=== PATIENT | male | born 1935 | race Hispanic/Latino ===

== ENCOUNTER 2016-11-12 12:33 | Inpatient (IN) | payer MEDICARE, OTHER ==
[2016-11-12 13:15] LABS: BASO % 0.2 % (0.0-2.0); EOS # 0.1 K/uL (0.0-0.7); EOS % 1.4 % (0.0-4.0); HEMATOCRIT 28.2 % (35.0-51.0); LYMPH # 1.3 K/uL (1.0-4.3); LYMPH % 24.6 % (20.0-40.0); MEAN CELL VOLUME 99.3 fl (80.0-94.0); MEAN CORPUSCULAR HEMOGLOBIN 33.3 pg (27.0-31.0); MEAN CORPUSCULAR HGB CONC 33.6 g/dL (33.0-37.0); MEAN PLATELET VOLUME 8.1 fl (7.2-11.7); MONO # 0.6 K/uL (0.0-0.8); MONO % 10.7 % (0.0-10.0); NEUT # 3.5 K/uL (1.8-7.0); NEUT % 63.1 % (50.0-75.0); NRBC % 0.2 % (0.0-0.0); RED CELL DISTRIBUTION WIDTH 14.1 % (11.5-14.5); WHITE BLOOD COUNT 5.5 K/uL (4.8-10.8)
[2016-11-12 13:37] LABS: ALB/GLOB RATIO 1.4 (1.0-2.1); ALKALINE PHOSPHATASE 110 U/L (38-126); ALT/SGPT 34 U/L (21-72); AST/SGOT 27 U/L (17-59); BILIRUBIN,TOTAL 0.3 mg/dl (0.2-1.3); BLOOD UREA NITROGEN 73 mg/dl (9-20); CARBON DIOXIDE 18 mmol/L (22-30); CHLORIDE 100 mmol/L (98-107); GFR AFRICAN-AMERICAN 41; GLUCOSE,RANDOM 110 mg/dL (75-110); POTASSIUM 4.9 MMOL/L (3.6-5.0); SODIUM 132 mmol/l (132-148); TOTAL PROTEIN 6.8 G/DL (6.3-8.2)
--- NOTE | 2016-11-12 14:15 | ED PDOC ---
HPI: SOB/CHF/COPD Time Seen by Provider: 11/12/16 12:51 Chief Complaint (Nursing): Shortness Of Breath Chief Complaint (Provider): Im short of breath History Per: Patient Onset/Duration Of Symptoms: Days (4) Current Symptoms Are (Timing): Still Present Quality: Tightness Exacerbating Factor(s): Exertion, Laying Flat Current Respiratory Medications: See Home Med List Severity: Moderate Location Of Discomfort (Image): 1 - chest Associated Symptoms: Dizziness Additional Complaint(s): 81yo male arrives c/o SOB and orthopnea ongoing 3-4 days, decreased urine output from illeostomy, diarrhea. Feels weak. Admits to mild chest tightness and dizziness. States taking medications daily, although poor historian and unfamiliar with medication regimen. Past Medical History Reviewed: Historical Data, Nursing Documentation, Vital Signs Vital Signs: Last Vital Signs Temp 98.3 F 11/12/16 12:47 Pulse 80 11/12/16 12:47 Resp 24 11/12/16 12:47 BP 138/65 11/12/16 14:16 Pulse Ox 92 L 11/12/16 14:20 - Medical History PMH: CAD, HTN, Chronic Kidney Disease Denies: Arthritis, CHF, COPD, Hypercholesterolemia, Hypothyroidism, Rheumatoid Arthritis - Surgical History Surgical History: CABG Other surgeries: illeostomy - Family History Family History: States: Unknown Family Hx - Living Arrangements Living Arrangements: With Family - Social History Current smoker - smoking cessation education provided: No - Home Medications Home Medications: Ambulatory Orders Medication Instructions Recorded Allopurinol [Zyloprim] 300 mg PO DAILY #0 tab 12/03/14 Aspirin [Aspirin Chewable] 81 mg PO DAILY #0 chew 12/03/14 Calcium Acetate [Phoslo] 667 mg PO TID #0 tab 12/03/14 Ciprofloxacin [Cipro] 500 mg PO Q12 #14 tab 12/03/14 Clopidogrel [Plavix] 75 mg PO DAILY #0 tab 12/03/14 Dicyclomine [Bentyl] 20 mg PO TID #0 tab 12/03/14 Hydrochlorothiazide [HCTZ] 12.5 mg PO DAILY #0 tablet 12/03/14 Lisinopril 10 mg PO DAILY #0 tab 12/03/14 Metoprolol Tartrate [Lopressor] 12.5 mg PO Q12 #0 tab 12/03/14 Nitroglycerin [Nitrostat] 0.4 mg SL DAILY PRN #0 tab 12/03/14 Pantoprazole [Protonix EC Tab] 40 mg PO DAILY #0 ect 12/03/14 Paricalcitol [Zemplar] 1 mcg PO QOTHERDAY #0 sgl 12/03/14 Sodium Bicarbonate 650 mg PO BID #0 tab 12/03/14 Temazepam [Restoril] 30 mg PO DAILY #0 cap 12/03/14 - Allergies Allergies/Adverse Reactions: Allergies Allergy/AdvReac Type Severity Reaction Status Date / Time ciprofloxacin [From Cipro] Allergy ITCHING Verified 11/12/16 12:46 Review of Systems ROS Statement: Except As Marked, All Systems Reviewed And Found Negative Constitutional: Negative for: Fever, Chills Eyes: Negative for: Vision Change ENT: Negative for: Nose Discharge, Throat Pain Cardiovascular: Positive for: Palpitations, Light Headedness. Negative for: Edema Respiratory: Positive for: Shortness of Breath, SOB with Exertion Gastrointestinal: Positive for: Nausea, Abdominal Pain, Diarrhea Genitourinary Male: Negative for: Dysuria, Frequency Musculoskeletal: Negative for: Neck Pain, Shoulder Pain Skin: Negative for: Rash, Lesions, Jaundice Neurological: Negative for: Weakness, Numbness Physical Exam - Reviewed Nursing Documentation Reviewed: Yes Vital Signs Reviewed: Yes - Physical Exam Appears: Positive for: Well, Non-toxic, No Acute Distress Head Exam: Positive for: ATRAUMATIC, NORMAL INSPECTION, NORMOCEPHALIC Skin: Positive for: Normal Color, Warm, DRY Eye Exam: Positive for: EOMI, Normal appearance, PERRL ENT: Positive for: Normal ENT Inspection Neck: Positive for: Normal, Painless ROM Cardiovascular/Chest: Positive for: Regular Rate, Rhythm Respiratory: Negative for: Rales, Wheezing, Respiratory Distress Pulses-Radial (L): 2+ Pulses-Radial (R): 2+ Gastrointestinal/Abdominal: Positive for: Bowel Sounds, Soft, Distended (softly) , Other (RLQ illeostomy approx 100cc dark yellow urine, pink ostomy). Negative for: Tenderness Back: Positive for: Normal Inspection Extremity: Positive for: Normal ROM Neurologic/Psych: Positive for: Alert, Oriented. Negative for: Motor/Sensory Deficits - Laboratory Results Result Diagrams: 11/12/16 13:09 11/12/16 13:09 - ECG O2 Sat by Pulse Oximetry: 92 Medical Decision Making Medical Decision Making: Workup initiated for dyspnea CXR, EKG, labwork. labs reviewed, elev BNP no recent values to compare trop neg Elevating BUN since prior values CXR minimal vascular congestion on my initial read. Will require admission given renal findings in addition to acute CHF. Dr Samano paged 215pm. Dr Bishop returned call, will consult. Admit Dr Joseph hospitalist. Discussed case 230pm/. Care transferred. Disposition - Clinical Impression Clinical Impression: CHF exacerbation, Acute on chronic renal failure - Patient ED Disposition Is Patient to be Admitted: Yes - Disposition Disposition Time: 14:15 Condition: STABLE - Pt Status Changed To: Hospital Disposition Of: Inpatient - Admit Certification Admit to Inpatient:: After my assessment, the patient will require hospitalization for at least two midnights. This is because of the severity of symptoms shown, intensity of services needed, and/or the medical risk in this patient being treated as an outpatient. - POA Present On Arrival: None
--- NOTE | 2016-11-12 14:34 | RAD ---
HISTORY: SOB COMPARISON: Comparison is made to 11/28/2014 TECHNIQUE: Chest PA and lateral FINDINGS: LUNGS: No significant interval change in the lungs noted since the previous exam. PLEURA: No significant pleural effusion identified. No pneumothorax apparent. CARDIOVASCULAR: Normal. OSSEOUS STRUCTURES: No significant abnormalities. VISUALIZED UPPER ABDOMEN: Normal. OTHER FINDINGS: Sternotomy changes are again seen. IMPRESSION: No active disease.
[2016-11-12 15:03] LABS: RBC URINE 3 /hpf (0-3); URINE BACTERIA OCC (<OCC); URINE BILIRUBIN NEGATIVE (NEGATIVE); URINE BLOOD MODERATE (NEGATIVE); URINE COLOR YELLOW (YELLOW); URINE GLUCOSE (UA) NEG (Normal); URINE KETONE NEGATIVE (NEGATIVE); URINE LEUKOCYTE ESTERASE SMALL Leu/uL (Negative); URINE PROTEIN NEGATIVE (NEGATIVE); URINE UROBILINOGEN 0.2-1.0 mg/dL (0.2-1.0); WBC URINE 5 /hpf (0-5)
--- NOTE | 2016-11-12 15:53 | CP.PCM.HP ---
History of Present Illness - History of Present Illness History of Present Illness: 81 y/o male poor historian ,with PMH CAD s/p CABG, HTN, history of urinary bladder CA s/p surgical resection and urostomy bag, CKD ,paroxysmal Afib, anemia of chronic disease, came to ER for evaluation for not feeling well . Complaining of 3 day history of generalized weakness, diarrhea , subjective fever . Patient states that 3 days ago had a family gathering /celebration in a restaurant and since then he and many other family members have not been feeling well, developing multiple episodes of diarrhea. He also complains of chest congestion, SOB , feeling like food is stuck to his mid chest . This morning had 4 episodes of watery diarrhea. Denies any abdominal pain , melena.He has an urostomy bag that he changes himself once a week . PMD : Dr. Sienna Samano Allergies :NKDA PMH :CAD s/p CABG, HTN, history of urinary bladder CA s/p surgical resection and urostomy bag, CKD ,paroxysmal Afib, anemia of chronic disease Medications: ASa, Plavix, renvela,Vitamin D, sulfasalazine, bentyl, trazodone, flexeril, lopressor, Lisinopril / HCTZ, zocor Surgeries: CABG, urinary bladder surgery with urostomy bag Family history :None Social History : Lives in [place] with , , has 3 children, ex smoker, denies ETOH or drug abuse, walks with cane ROS; generalized weakness, feverish , diarrhea , SOB all the other system review negative except above Code status : Full Present on Admission - Present on Admission Any Indicators Present on Admission: No Review of Systems - Review of Systems All systems: reviewed and no additional remarkable complaints except - Constitutional Constitutional: Weakness - Cardiovascular Cardiovascular: Dyspnea Past Patient History - Infectious Disease Hx of Infectious Diseases: None - Tetanus Immunizations Tetanus Immunization: Unknown - Past Medical History & Family History Past Medical History?: Yes Past Family History: Reviewed and not pertinent - Past Social History Smoking Status: Former Smoker Chewing Tobacco Use: No Cigar Use: No Alcohol: None Drugs: Denies Home Situation {Lives}: With Family Domestic Violence: Negative - CARDIAC Hx Atrial Fibrillation: Yes (paroxysmal) Hx Congestive Heart Failure: No Hx Heart Attack: Yes Hx Hypercholesterolemia: No Hx Hypertension: Yes - PULMONARY Hx Chronic Obstructive Pulmonary Disease (COPD): No - NEUROLOGICAL HX Cerebrovascular Accident: No - RENAL Hx Chronic Kidney Disease: Yes - ENDOCRINE/METABOLIC Hx Hypothyroidism: No - HEMATOLOGICAL/ONCOLOGICAL Hx Anemia: Yes - MUSCULOSKELETAL/RHEUMATOLOGICAL Hx Arthritis: No Hx Rheumatoid Arthritis: No - GENITOURINARY/GYNECOLOGICAL Hx Genitourinary Disorders: Yes Hx Bladder Cancer: Yes (s/p bladder resction and urostomy bag) - PSYCHIATRIC Hx Depression: Yes Hx Substance Use: No - SURGICAL HISTORY Hx Surgeries: Yes Hx Coronary Artery Bypass Graft: Yes Other/Comment: urinary bladder Ca resection - ANESTHESIA Hx Anesthesia: Yes Hx Anesthesia Reactions: No Meds Allergies/Adverse Reactions: Allergies Allergy/AdvReac Type Severity Reaction Status Date / Time ciprofloxacin [From Cipro] Allergy ITCHING Verified 11/12/16 12:46 Physical Exam - Constitutional Appears: No Acute Distress, Chronically Ill, Other (weak and pale) - Head Exam Head Exam: ATRAUMATIC, NORMAL INSPECTION, NORMOCEPHALIC - Eye Exam Eye Exam: EOMI, Normal appearance, PERRL Pupil Exam: NORMAL ACCOMODATION - ENT Exam ENT Exam: Mucous Membranes Dry, Normal Exam - Neck Exam Neck exam: Positive for: Full Rom, Normal Inspection - Respiratory Exam Respiratory Exam: Prolonged Expiratory Phase, Rales (bibasilar ). absent: Rhonchi, Wheezes - Cardiovascular Exam Cardiovascular Exam: REGULAR RHYTHM, +S1, +S2. absent: JVD - GI/Abdominal Exam GI & Abdominal Exam: Normal Bowel Sounds, Soft. absent: Distended, Guarding, Rebound, Tenderness Additional comments: urostomy bag with good , clear urine output - Rectal Exam Rectal Exam: Deferred - Extremities Exam Extremities exam: Positive for: normal inspection, pedal pulses present. Negative for: normal capillary refill - Back Exam Back exam: NORMAL INSPECTION - Neurological Exam Neurological exam: Alert, CN II-XII Intact, Oriented x3 - Psychiatric Exam Psychiatric exam: Flat Affect - Skin Skin Exam: Dry, Intact, Pallor, Warm Results - Vital Signs Recent Vital Signs: Last Vital Signs Temp 97.9 F 11/12/16 15:33 Pulse 84 11/12/16 15:33 Resp 18 11/12/16 15:33 BP 136/67 11/12/16 15:33 Pulse Ox 99 11/12/16 15:33 - Labs Result Diagrams: 11/12/16 13:11/12/16 13:09 - EKG Data EKG shows normal: Sinus rhythm Rate: Normal - EKG Data When Compared to Previous EKG: No Significant Change EKG comments: Fist degree AV block , partial RBBB - Imaging and Cardiology Chest x-ray Additional comment: No active disease Assessment & Plan - Assessment and Plan (Free Text) Assessment: 81 y/o male poor historian ,with PMH CAD s/p CABG, HTN, history of urinary bladder CA s/p surgical resection and urostomy bag, CKD ,paroxysmal Afib, anemia of chronic disease, came to ER for evaluation for not feeling well . Complaining of 3 day history of generalized weakness, diarrhea , subjective fever . Patient states that 3 days ago had a family gathering /celebration in a restaurant and since then he and many other family members have not been feeling well, developing multiple episodes of diarrhea. He also complains of chest congestion, SOB , feeling like food is stuck to his mid chest, progressive . This morning had 4 episodes of watery diarrhea. Denies any abdominal pain , melena.He has an urostomy bag that he changes himself once a week . In ER found to have BUN/Cr 73/1.9 CXR showed no active disease but physical exam was significant forrales , ProBNP 0 Trop - Will admit patient to telemetry for CHF exacerbation with gastroenteritis , dehydration , acute on chronic renal failure 1. Acute CHF exacerbation, systolic dysfunction Will admit patient to telemetry ProBNp elevated 1889 Latest Echo showed EF 35 % lasix 60 Mg IV x1 dose given in ER cardiology eval Resume ASA, Statin, lopressor , Lisinopril, plavix Repeat BMp in AM Cycle Troponins x 3 q8 hours to ru;le out ischemic event tele monitoring to rule out and arrythmias 2.Suspected Gastroenteritis Given history of multiple family members experiencing multiple episode of diarrhea after sharing the same meal , gastroenteritis is very likely Start cardiac diet Protonix for GI prophylaxis , reglan PRN for nausea If diarrhea continues mild hydration Continue oral hydration for now due to CHF exacerbation Hold HCTZ 3. Acute on chronic renal failure stage III BUN / Cr 73/1.9 ( baseline GFR 30). Most likely worsening of azotemia as a result of dehydration and diarrhea Resume renvela Close monitoring with oral hydration hold HCTZ Continue Lisinopril since patient has been taking it for a long time 4.Hypertension controlled Continue lopressor and lisinopril 5. Anemia of Chronic disease Hgb 9.5 Continue ferrous sulfate supplements send anemia work up 6.CAD s/p CABG telemetry monitoring Cycle Trop x 3 Q8 hours Continue ASA, plavix, Statin, lopressor , ACEI 7.History Bladder Ca s/p urostomy bag Check UA 8. DVT prophylaxis lovenox
--- NOTE | 2016-11-12 17:57 | CP.PCM.CON ---
History of Present Illness - History of Present Illness History of Present Illness: 81 y/o male poor historian ,with PMH CAD s/p CABG, HTN, history of urinary bladder CA s/p surgical resection and urostomy bag, CKD , paroxysmal Afib, anemia of chronic disease, came to ER for evaluation for not feeling well Complaining of 3 day history of generalized weakness, diarrhea , subjective fever . Pt calims that both his and daughter were sick with N/V/Diarrhea Patient states that 3 days ago had a family gathering /celebration in a restaurant and since then he and many other family members have not been feeling well, developing multiple episodes of diarrhea. He also complains of chest congestion, SOB , This morning had 4 episodes of watery diarrhea. Denies any abdominal pain , melena. He has an urostomy bag that he changes himself once a week . Allergies :NKDA PMH :CAD s/p CABG, HTN, urinary bladder CA s/p surgical resection and urostomy bag, CKD , paroxysmal Afib, anemia of chronic disease Medications: ASa, Plavix, renvela, Vitamin D, sulfasalazine, bentyl, trazodone, flexeril, lopressor, Lisinopril / HCTZ, zocor Surgeries: CABG, urinary bladder surgery with urostomy bag ROS; generalized weakness, feverish , diarrhea , SOB all the other system review negative except above BNP: 1890 11/26/14 Echo:EF: 35 - 40% Past Patient History - Infectious Disease Hx of Infectious Diseases: None - Tetanus Immunizations Tetanus Immunization: Unknown - Past Medical History & Family History Past Medical History?: Yes Past Family History: Reviewed and not pertinent - Past Social History Smoking Status: Former Smoker Chewing Tobacco Use: No Cigar Use: No Alcohol: None Drugs: Denies Home Situation {Lives}: With Family Domestic Violence: Negative - CARDIAC Hx Atrial Fibrillation: Yes (paroxysmal) Hx Congestive Heart Failure: No Hx Heart Attack: Yes Hx Hypercholesterolemia: No Hx Hypertension: Yes - PULMONARY Hx Chronic Obstructive Pulmonary Disease (COPD): No - NEUROLOGICAL HX Cerebrovascular Accident: No - RENAL Hx Chronic Kidney Disease: Yes - ENDOCRINE/METABOLIC Hx Hypothyroidism: No - HEMATOLOGICAL/ONCOLOGICAL Hx Anemia: Yes - MUSCULOSKELETAL/RHEUMATOLOGICAL Hx Arthritis: No Hx Rheumatoid Arthritis: No - GENITOURINARY/GYNECOLOGICAL Hx Genitourinary Disorders: Yes Hx Bladder Cancer: Yes (s/p bladder resction and urostomy bag) - PSYCHIATRIC Hx Depression: Yes Hx Substance Use: No - SURGICAL HISTORY Hx Surgeries: Yes Hx Coronary Artery Bypass Graft: Yes Other/Comment: urinary bladder Ca resection - ANESTHESIA Hx Anesthesia: Yes Hx Anesthesia Reactions: No Meds Allergies/Adverse Reactions: Allergies Allergy/AdvReac Type Severity Reaction Status Date / Time ciprofloxacin [From Cipro] Allergy ITCHING Verified 11/12/16 12:46 - Medications Medications: Current Medications Acetaminophen (Tylenol 325mg Tab) 650 mg PO Q6 PRN PRN Reason: Pain, Mild (1-3) Acetaminophen (Tylenol 325mg Tab) 650 mg PO Q6 PRN PRN Reason: Fever >100.4 F Aspirin (Ecotrin) 81 mg PO DAILY [facility] Atorvastatin Calcium (Lipitor) 10 mg PO DAILY [facility] Cholecalciferol (Vitamin D) 5,000 iu PO Q48H [facility] Clopidogrel Bisulfate (Plavix) 75 mg PO DAILY [facility] Dicyclomine HCl (Bentyl) 20 mg PO TID PRN PRN Reason: abdominal pain/cramping Enoxaparin Sodium (Lovenox) 30 mg SC DAILY [facility] PRN Reason: Protocol Folic Acid (Folic Acid) 1 mg PO DAILY [facility] Lisinopril (Zestril) 10 mg PO DAILY [facility] Metoprolol Tartrate (Lopressor) 25 mg PO BID [facility] Ondansetron HCl (Zofran Inj) 4 mg IVP Q6 PRN PRN Reason: Nausea/Vomiting Pantoprazole Sodium (Protonix Ec Tab) 40 mg PO DAILY [facility] Sevelamer Carbonate (Renvela) 0.8 gm PO TID [facility] Sulfasalazine (Azulfidine) 1,000 mg PO Q6 [facility] Temazepam (Restoril) 30 mg PO HS [facility] Trazodone HCl (Desyrel) 50 mg PO HS [facility] Physical Exam - Respiratory Exam Respiratory Exam: NORMAL BREATHING PATTERN - Cardiovascular Exam Cardiovascular Exam: REGULAR RHYTHM Results - Vital Signs Recent Vital Signs: Last Vital Signs Temp 97.9 F 11/12/16 16:41 Pulse 83 11/12/16 16:41 Resp 18 11/12/16 16:41 BP 136/84 11/12/16 16:41 Pulse Ox 97 11/12/16 16:41 - Labs Result Diagrams: 11/13/16 08:30 11/13/16 08:30 Labs: Laboratory Results - last 24 hr 05/19/17 16:40 PT 11.0 INR 1.06 APTT 30.0 Assessment & Plan (1) Acute on chronic systolic CHF (congestive heart failure) Assessment and Plan: Agree with present Tx Status: Acute
[2016-11-12 20:01] LABS: THYROID STIMULATING HORMONE 4.07 mIU/ML (0.46-4.68)
[2016-11-12] MEDS: Sevelamer Carb 0.8 gm/Packet PO SCH (21:41)
[2016-11-12] MEDS: Pantoprazole 40 mg EC Tab PO SCH (21:57)
--- NOTE | 2016-11-12 21:58 | CARD ---
APPROVED REPORT EKG Measurement Heart [id number] VT [id number] <Conclusion> Sinus rhythm with 1st degree AV block Incomplete right bundle branch block Inferior infarct, age undetermined Cannot rule out Anterior infarct, age undetermined Abnormal ECG
[2016-11-12] MEDS ORDERED: Albuterol-Ipratrop 3 mg / 0.5 (3 ml) UD INH STA (22:31)
[2016-11-13 08:51] LABS: HEMATOCRIT 28.7 % (35.0-51.0); MEAN CELL VOLUME 99.4 fl (80.0-94.0); MEAN CORPUSCULAR HEMOGLOBIN 32.8 pg (27.0-31.0); RED CELL DISTRIBUTION WIDTH 13.9 % (11.5-14.5); WHITE BLOOD COUNT 5.2 K/uL (4.8-10.8)
[2016-11-13 09:05] LABS: CALCIUM 9.2 mg/dL (8.4-10.2); POTASSIUM 4.6 MMOL/L (3.6-5.0)
[2016-11-13] MEDS: Pantoprazole 40 mg EC Tab PO SCH (09:30)
[2016-11-13] MEDS: Sevelamer Carb 0.8 gm/Packet PO SCH ×3 (09:31→17:01)
[2016-11-13] MEDS: Enoxaparin 30 mg Syringe SC SCH (09:32)
--- NOTE | 2016-11-13 09:47 | CP.PCM.PN ---
Subjective - Date & Time of Evaluation Date of Evaluation: 11/13/16 Time of Evaluation: 09:47 - Subjective Subjective: seen and examined bedside. breathing improved from yesterday, however continues to have mild orthopnea. diarrhea, improving but continues to have loose BM and some abdominal discomfort. appears to have hx of ulcerative colitis ? Spoke with patient's pharmacist to clarify medications: patient states he is on Lialda, however, according to pharmacy, patient did not pick it up bc it was too expensive. Patient was switched to alternative which he is currently receiving. vitals are stable no acute distress. Objective - Vital Signs/Intake and Output Vital Signs (last 24 hours): Temp Pulse Resp BP Pulse Ox 98.3 F 76 18 116/58 L 96 11/13/16 08:01 11/13/16 09:32 11/13/16 08:01 11/13/16 09:32 11/13/16 08:01 Intake and Output: 11/13/16 11/13/16 06:59 18:59 Intake Total 1280 Output Total 1400 Balance -120 - Medications Medications: Current Medications Acetaminophen (Tylenol 325mg Tab) 650 mg PO Q6 PRN PRN Reason: Pain, Mild (1-3) Acetaminophen (Tylenol 325mg Tab) 650 mg PO Q6 PRN PRN Reason: Fever >100.4 F Aspirin (Ecotrin) 81 mg PO DAILY [facility] Last Admin: 11/13/16 09:31 Dose: 81 mg Atorvastatin Calcium (Lipitor) 10 mg PO DAILY [facility] Last Admin: 11/13/16 09:31 Dose: 10 mg Cholecalciferol (Vitamin D) 5,000 iu PO Q48H [facility] Last Admin: 11/12/16 21:41 Dose: 5,000 iu Clopidogrel Bisulfate (Plavix) 75 mg PO DAILY [facility] Last Admin: 11/13/16 09:30 Dose: 75 mg Dicyclomine HCl (Bentyl) 20 mg PO TID PRN PRN Reason: abdominal pain/cramping Enoxaparin Sodium (Lovenox) 30 mg SC DAILY [facility] PRN Reason: Protocol Last Admin: 11/13/16 09:32 Dose: 30 mg Folic Acid (Folic Acid) 1 mg PO DAILY [facility] Last Admin: 11/13/16 09:30 Dose: 1 mg Lisinopril (Zestril) 10 mg PO DAILY [facility] Last Admin: 11/13/16 09:31 Dose: 10 mg Metoprolol Tartrate (Lopressor) 25 mg PO BID [facility] Last Admin: 11/13/16 09:32 Dose: 25 mg Ondansetron HCl (Zofran Inj) 4 mg IVP Q6 PRN PRN Reason: Nausea/Vomiting Pantoprazole Sodium (Protonix Ec Tab) 40 mg PO DAILY [facility] Last Admin: 11/13/16 09:30 Dose: 40 mg Sevelamer Carbonate (Renvela) 0.8 gm PO TID [facility] Last Admin: 11/13/16 09:31 Dose: 0.8 gm Sulfasalazine (Azulfidine) 1,000 mg PO Q6 [facility] Last Admin: 11/13/16 09:30 Dose: 1,000 mg Temazepam (Restoril) 30 mg PO HS [facility] Last Admin: 11/12/16 22:13 Dose: 30 mg Trazodone HCl (Desyrel) 50 mg PO HS [facility] Last Admin: 11/12/16 23:21 Dose: 50 mg - Labs Labs: 11/13/16 08:30 11/13/16 08:30 PT 11.0 SECONDS (9.6-11.2) 11/12/16 16:40 INR 1.06 (0.92-1.08) 11/12/16 16:40 APTT 30.0 SECONDS (23.3-32.5) 11/12/16 16:40 - Constitutional Appears: Non-toxic, No Acute Distress - Head Exam Head Exam: ATRAUMATIC, NORMOCEPHALIC - Eye Exam Eye Exam: EOMI, Normal appearance, PERRL - ENT Exam ENT Exam: Mucous Membranes Dry, Mucous Membranes Moist, Normal Oropharynx - Respiratory Exam Respiratory Exam: Rales (bibasilar), NORMAL BREATHING PATTERN. absent: Rhonchi , Wheezes - Cardiovascular Exam Cardiovascular Exam: RRR, +S1, +S2 - GI/Abdominal Exam GI & Abdominal Exam: Soft, Normal Bowel Sounds. absent: Tenderness, Organomegaly - Extremities Exam Extremities Exam: Normal Capillary Refill. absent: Calf Tenderness - Back Exam Back Exam: absent: CVA tenderness (L), CVA tenderness (R) - Neurological Exam Neurological Exam: Alert, Awake - Psychiatric Exam Psychiatric exam: Flat Affect, Normal Mood - Skin Skin Exam: Dry, Normal Color, Warm Assessment and Plan - Assessment and Plan (Free Text) Plan: 81 y/o male poor historian ,with PMH CAD s/p CABG, HTN, history of urinary bladder CA s/p surgical resection and urostomy bag, CKD ,paroxysmal Afib, anemia of chronic disease, came to ER for evaluation for not feeling well . Complaining of 3 day history of generalized weakness, diarrhea , subjective fever . Patient states that 3 days ago had a family gathering /celebration in a restaurant and since then he and many other family members have not been feeling well, developing multiple episodes of diarrhea. He also complains of chest congestion, SOB , feeling like food is stuck to his mid chest, progressive . This morning had 4 episodes of watery diarrhea. Denies any abdominal pain , melena.He has an urostomy bag that he changes himself once a week . In ER found to have BUN/Cr 73/1.9 CXR showed no active disease but physical exam was significant forrales , ProBNP 1889 Trop - Will admit patient to telemetry for CHF exacerbation with gastroenteritis , dehydration , acute on chronic renal failure 1. Acute CHF exacerbation, systolic dysfunction Will admit patient to telemetry ProBNp elevated 1889 Latest Echo showed EF 35 % lasix 60 Mg IV x1 dose given in ER, consider additional dose today if patient dyspnea worsens, while monitoring renal function cardiology eval Resume ASA, Statin, lopressor , Lisinopril, plavix Repeat BMp in AM Cycle Troponins x 3 q8 hours to rule out ischemic event , first two negative tele monitoring to rule out and arrythmias 2.Suspected Gastroenteritis Given history of multiple family members experiencing multiple episode of diarrhea after sharing the same meal , gastroenteritis is very likely Start cardiac diet Protonix for GI prophylaxis , reglan PRN for nausea If diarrhea continues mild hydration Continue oral hydration for now due to CHF exacerbation Hold HCTZ 3. Acute on chronic renal failure stage III BUN / Cr 73/1.9 ( baseline GFR 30). today Cr 2.2 -- Most likely worsening of azotemia as a result of dehydration and diarrhea Resume renvela Close monitoring with oral hydration hold HCTZ Continue Lisinopril since patient has been taking it for a long time 4.Hypertension controlled Continue lopressor and lisinopril 5. Anemia of Chronic disease Hgb 9.5 Continue ferrous sulfate supplements send anemia work up 6.CAD s/p CABG telemetry monitoring Cycle Trop x 3 Q8 hours Continue ASA, plavix, Statin, lopressor , ACEI 7.History Bladder Ca s/p urostomy bag Check UA 8. DVT prophylaxis lovenox
[2016-11-13 12:50] LABS: VITAMIN D 25 OH TOTAL 97.5 NG/ML (30.0-100.0)
[2016-11-13 13:35] LABS: FOLATE > 20.0 ng/mL
--- NOTE | 2016-11-13 23:27 | CP.PCM.CON ---
History of Present Illness - History of Present Illness History of Present Illness: REASONS FOR CONSULT : A ON CKD ANEMIA OF CKD BLADDER CA S/P RESECTION AND ELEOSTOMY BAG .. OLD RECORDS AND CURRENT EMR ALL REVIEWD .. PT WAS SEEN AND EXAMINED 81 y/o male poor historian ,with PMH CAD s/p CABG, HTN, history of urinary bladder CA s/p surgical resection and urostomy bag, CKD ,paroxysmal Afib, anemia of chronic disease, came to ER for evaluation for not feeling well . Complaining of 3 day history of generalized weakness, diarrhea , subjective fever . Patient states that 3 days ago had a family gathering /celebration in a restaurant and since then he and many other family members have not been feeling well, developing multiple episodes of diarrhea. He also complains of chest congestion, SOB , feeling like food is stuck to his mid chest . This morning had 4 episodes of watery diarrhea. Denies any abdominal pain , melena.He has an urostomy bag that he changes himself once a week . PMD : Dr. Sienna Samano Allergies :NKDA PMH :CAD s/p CABG, HTN, history of urinary bladder CA s/p surgical resection and urostomy bag, CKD ,paroxysmal Afib, anemia of chronic disease Medications: ASa, Plavix, renvela,Vitamin D, sulfasalazine, bentyl, trazodone, flexeril, lopressor, Lisinopril / HCTZ, zocor Surgeries: CABG, urinary bladder surgery with urostomy bag Family history :None Social History : [place] in [place] with , , has 3 children, ex smoker, denies ETOH or drug abuse, walks with cane ROS; generalized weakness, feverish , diarrhea , SOB all the other system review negative except above Code status : Full Past Patient History - Infectious Disease Hx of Infectious Diseases: None - Tetanus Immunizations Tetanus Immunization: Unknown - Past Medical History & Family History Past Medical History?: Yes Past Family History: Reviewed and not pertinent - Past Social History Smoking Status: Former Smoker Chewing Tobacco Use: No Cigar Use: No Alcohol: None Drugs: Denies Home Situation {Lives}: With Family Domestic Violence: Negative - CARDIAC Hx Atrial Fibrillation: Yes (paroxysmal) Hx Congestive Heart Failure: No Hx Heart Attack: Yes Hx Hypercholesterolemia: No Hx Hypertension: Yes - PULMONARY Hx Chronic Obstructive Pulmonary Disease (COPD): No - NEUROLOGICAL HX Cerebrovascular Accident: No - RENAL Hx Chronic Kidney Disease: Yes - ENDOCRINE/METABOLIC Hx Hypothyroidism: No - HEMATOLOGICAL/ONCOLOGICAL Hx Anemia: Yes - MUSCULOSKELETAL/RHEUMATOLOGICAL Hx Arthritis: No Hx Rheumatoid Arthritis: No - GENITOURINARY/GYNECOLOGICAL Hx Genitourinary Disorders: Yes Hx Bladder Cancer: Yes (s/p bladder resction and urostomy bag) - PSYCHIATRIC Hx Depression: Yes Hx Substance Use: No - SURGICAL HISTORY Hx Surgeries: Yes Hx Coronary Artery Bypass Graft: Yes Other/Comment: urinary bladder Ca resection - ANESTHESIA Hx Anesthesia: Yes Hx Anesthesia Reactions: No Meds Allergies/Adverse Reactions: Allergies Allergy/AdvReac Type Severity Reaction Status Date / Time ciprofloxacin [From Cipro] Allergy ITCHING Verified 11/12/16 12:46 - Medications Medications: Current Medications Acetaminophen (Tylenol 325mg Tab) 650 mg PO Q6 PRN PRN Reason: Pain, Mild (1-3) Acetaminophen (Tylenol 325mg Tab) 650 mg PO Q6 PRN PRN Reason: Fever >100.4 F Aspirin (Ecotrin) 81 mg PO DAILY [facility] Last Admin: 11/13/16 09:31 Dose: 81 mg Atorvastatin Calcium (Lipitor) 10 mg PO DAILY [facility] Last Admin: 11/13/16 09:31 Dose: 10 mg Cholecalciferol (Vitamin D) 5,000 iu PO Q48H [facility] Last Admin: 11/12/16 21:41 Dose: 5,000 iu Clopidogrel Bisulfate (Plavix) 75 mg PO DAILY [facility] Last Admin: 11/13/16 09:30 Dose: 75 mg Dicyclomine HCl (Bentyl) 20 mg PO TID PRN PRN Reason: abdominal pain/cramping Enoxaparin Sodium (Lovenox) 30 mg SC DAILY [facility] PRN Reason: Protocol Last Admin: 11/13/16 09:32 Dose: 30 mg Folic Acid (Folic Acid) 1 mg PO DAILY [facility] Last Admin: 11/13/16 09:30 Dose: 1 mg Lisinopril (Zestril) 10 mg PO DAILY [facility] Last Admin: 11/13/16 09:31 Dose: 10 mg Metoprolol Tartrate (Lopressor) 25 mg PO BID [facility] Last Admin: 11/13/16 17:00 Dose: Not Given Ondansetron HCl (Zofran Inj) 4 mg IVP Q6 PRN PRN Reason: Nausea/Vomiting Pantoprazole Sodium (Protonix Ec Tab) 40 mg PO DAILY [facility] Last Admin: 11/13/16 09:30 Dose: 40 mg Sevelamer Carbonate (Renvela) 0.8 gm PO TID [facility] Last Admin: 11/13/16 17:01 Dose: 0.8 gm Sulfasalazine (Azulfidine) 1,000 mg PO Q6 [facility] Last Admin: 11/13/16 21:41 Dose: 1,000 mg Temazepam (Restoril) 30 mg PO HS [facility] Last Admin: 11/13/16 21:40 Dose: 30 mg Trazodone HCl (Desyrel) 50 mg PO HS [facility] Last Admin: 11/13/16 21:40 Dose: 50 mg Results - Vital Signs Recent Vital Signs: Last Vital Signs Temp 97.7 F 11/13/16 20:52 Pulse 77 11/13/16 21:00 Resp 18 11/13/16 20:52 BP 100/55 L 11/13/16 20:52 Pulse Ox 97 11/13/16 20:52 - Labs Result Diagrams: 11/13/16 08:30 11/13/16 08:30 Labs: Laboratory Results - last 24 hr 11/12/16 11/12/16 11/12/16 18:52 18:52 18:52 WBC RBC Hgb Hct MCV MCH MCHC RDW Plt Count Sodium Potassium Chloride Carbon Dioxide Anion Gap BUN Creatinine Est GFR ( Amer) Est GFR (Non-Af Amer) Random Glucose Calcium TIBC 261 % Saturation 22 Transferrin 184.88 L Troponin I 25-OH Vitamin D Total 97.5 Folate > 20.0 11/13/16 11/13/16 11/13/16 08:30 08:30 08:30 WBC 5.2 RBC 2.89 L Hgb 9.5 L Hct 28.7 L MCV 99.4 H MCH 32.8 H MCHC 33.0 RDW 13.9 Plt Count 132 Sodium 132 Potassium 4.6 Chloride 98 Carbon Dioxide 23 Anion Gap 17 BUN 80 H Creatinine 2.2 H Est GFR ( Amer) 35 Est GFR (Non-Af Amer) 29 Random Glucose 114 H Calcium 9.2 TIBC % Saturation Transferrin Troponin I < 0.0120 25-OH Vitamin D Total Folate Assessment & Plan - Assessment and Plan (Free Text) Assessment: A ON CKD .. WILL WATCH CLOSELY ANRMIA OF CKD .. HGB LOW .. WILL CHECK ANEMIA W/U C/O CURRENT CARE - Date & Time Date: 11/13/16 Time: 19:00
[2016-11-14 08:03] VITALS: RESP 18
[2016-11-14 08:58] LABS: MEAN CELL VOLUME 98.8 fl (80.0-94.0); MEAN CORPUSCULAR HEMOGLOBIN 33.6 pg (27.0-31.0); RED CELL DISTRIBUTION WIDTH 13.6 % (11.5-14.5); WHITE BLOOD COUNT 5.6 K/uL (4.8-10.8)
[2016-11-14 09:07] LABS: CALCIUM 9.4 mg/dL (8.4-10.2); POTASSIUM 4.8 MMOL/L (3.6-5.0)
[2016-11-14] MEDS: Enoxaparin 30 mg Syringe SC SCH (09:37)
[2016-11-14] MEDS: Sevelamer Carb 0.8 gm/Packet PO SCH (09:38)
[2016-11-14] MEDS: Pantoprazole 40 mg EC Tab PO SCH (09:38)
--- NOTE | 2016-11-14 10:38 | CP.PCM.PN ---
Subjective - Date & Time of Evaluation Date of Evaluation: 11/14/16 Time of Evaluation: 10:00 - Subjective Subjective: Breathing easier today BNP: 425 resolving CHF Objective - Vital Signs/Intake and Output Vital Signs (last 24 hours): Temp Pulse Resp BP Pulse Ox 97.6 F 83 18 121/61 96 11/14/16 08:02 11/14/16 08:02 11/14/16 08:02 11/14/16 08:02 11/14/16 08:02 Intake and Output: 11/14/16 11/14/16 06:59 18:59 Output Total 800 Balance -800 - Medications Medications: Current Medications Acetaminophen (Tylenol 325mg Tab) 650 mg PO Q6 PRN PRN Reason: Pain, Mild (1-3) Acetaminophen (Tylenol 325mg Tab) 650 mg PO Q6 PRN PRN Reason: Fever >100.4 F Aspirin (Ecotrin) 81 mg PO DAILY [facility] Last Admin: 11/14/16 09:36 Dose: 81 mg Atorvastatin Calcium (Lipitor) 10 mg PO DAILY [facility] Last Admin: 11/14/16 09:36 Dose: 10 mg Cholecalciferol (Vitamin D) 5,000 iu PO Q48H [facility] Last Admin: 11/12/16 21:41 Dose: 5,000 iu Clopidogrel Bisulfate (Plavix) 75 mg PO DAILY [facility] Last Admin: 11/14/16 09:38 Dose: 75 mg Dicyclomine HCl (Bentyl) 20 mg PO TID PRN PRN Reason: abdominal pain/cramping Enoxaparin Sodium (Lovenox) 30 mg SC DAILY [facility] PRN Reason: Protocol Last Admin: 11/14/16 09:37 Dose: 30 mg Folic Acid (Folic Acid) 1 mg PO DAILY [facility] Last Admin: 11/14/16 09:35 Dose: 1 mg Lisinopril (Zestril) 10 mg PO DAILY [facility] Last Admin: 11/14/16 09:38 Dose: 10 mg Metoprolol Tartrate (Lopressor) 25 mg PO BID [facility] Last Admin: 11/14/16 09:37 Dose: 25 mg Ondansetron HCl (Zofran Inj) 4 mg IVP Q6 PRN PRN Reason: Nausea/Vomiting Pantoprazole Sodium (Protonix Ec Tab) 40 mg PO DAILY [facility] Last Admin: 11/14/16 09:38 Dose: 40 mg Sevelamer Carbonate (Renvela) 0.8 gm PO TID [facility] Last Admin: 11/14/16 09:38 Dose: 0.8 gm Sulfasalazine (Azulfidine) 1,000 mg PO Q6 [facility] Last Admin: 11/14/16 09:35 Dose: 1,000 mg Temazepam (Restoril) 30 mg PO HS [facility] Last Admin: 11/13/16 21:40 Dose: 30 mg Trazodone HCl (Desyrel) 50 mg PO HS [facility] Last Admin: 11/13/16 21:40 Dose: 50 mg - Labs Labs: 11/14/16 08:40 11/14/16 08:40 PT 11.0 SECONDS (9.6-11.2) 11/12/16 16:40 INR 1.06 (0.92-1.08) 11/12/16 16:40 APTT 30.0 SECONDS (23.3-32.5) 11/12/16 16:40 Assessment and Plan (1) Acute on chronic systolic CHF (congestive heart failure) Status: Acute
--- NOTE | 2016-11-14 11:00 | CP.PCM.DIS ---
Provider - Provider Date of Admission: 11/12/16 14:32 Attending physician: Aby Joseph MD Time Spent in preparation of Discharge (in minutes): 30 Hospital Course - Lab Results Lab Results: Most Recent Lab Values WBC 5.6 K/uL (4.8-10.8) 11/14/16 08:40 RBC 3.04 Mil/uL (4.40-5.90) L 11/14/16 08:40 Hgb 10.2 g/dL (12.0-18.0) L 11/14/16 08:40 Hct 30.0 % (35.0-51.0) L 11/14/16 08:40 MCV 98.8 fl (80.0-94.0) H 11/14/16 08:40 MCH 33.6 pg (27.0-31.0) H 11/14/16 08:40 MCHC 34.0 g/dL (33.0-37.0) 11/14/16 08:40 RDW 13.6 % (11.5-14.5) 11/14/16 08:40 Plt Count 142 K/uL (130-400) 11/14/16 08:40 MPV 8.1 fl (7.2-11.7) 11/12/16 13:09 Neut % (Auto) 63.1 % (50.0-75.0) 11/12/16 13:09 Lymph % (Auto) 24.6 % (20.0-40.0) 11/12/16 13:09 [place] % (Auto) 10.7 % (0.0-10.0) H 11/12/16 13:09 Eos % (Auto) 1.4 % (0.0-4.0) 11/12/16 13:09 Baso % (Auto) 0.2 % (0.0-2.0) 11/12/16 13:09 Neut # 3.5 K/uL (1.8-7.0) 11/12/16 13:09 Lymph # 1.3 K/uL (1.0-4.3) 11/12/16 13:09 [place] # 0.6 K/uL (0.0-0.8) 11/12/16 13:09 Eos # 0.1 K/uL (0.0-0.7) 11/12/16 13:09 Baso # 0.0 K/uL (0.0-0.2) 11/12/16 13:09 Retic Count 2.9 % (0.5-1.5) H D 11/12/16 18:52 PT 11.0 SECONDS (9.6-11.2) 11/12/16 16:40 INR 1.06 (0.92-1.08) 11/12/16 16:40 APTT 30.0 SECONDS (23.3-32.5) 11/12/16 16:40 Sodium 133 mmol/l (132-148) 11/14/16 08:40 Potassium 4.8 MMOL/L (3.6-5.0) 11/14/16 08:40 Chloride 98 mmol/L (98-107) 11/14/16 08:40 Carbon Dioxide 23 mmol/L (22-30) 11/14/16 08:40 Anion Gap 16 (10-20) 11/14/16 08:40 BUN 79 mg/dl (9-20) H 11/14/16 08:40 Creatinine 2.1 mg/dL (0.8-1.5) H 11/14/16 08:40 Est GFR ( Amer) 37 11/14/16 08:40 Est GFR (Non-Af Amer) 30 11/14/16 08:40 Random Glucose 103 mg/dL (75-110) 11/14/16 08:40 Calcium 9.4 mg/dL (8.4-10.2) 11/14/16 08:40 Iron 58 ug/dL (49-181) 11/12/16 18:52 TIBC 261 ug/dL (250-450) 11/12/16 18:52 % Saturation 22 % (20-55) 11/12/16 18:52 Transferrin 184.88 mg/dL (206-381) L 11/12/16 18:52 Ferritin 92.1 ng/mL 11/12/16 18:52 Total Bilirubin 0.3 mg/dl (0.2-1.3) 11/12/16 13:09 AST 27 U/L (17-59) 11/12/16 13:09 ALT 34 U/L (21-72) 11/12/16 13:09 Alkaline Phosphatase 110 U/L (38-126) 11/12/16 13:09 Troponin I < 0.0120 ng/mL (0.00-0.120) 11/13/16 08:30 NT-Pro-B Natriuret Pep 425 pg/ml (0-900) 11/14/16 08:40 Total Protein 6.8 G/DL (6.3-8.2) 11/12/16 13:09 Albumin 4.0 g/dL (3.5-5.0) 11/12/16 13:09 Globulin 2.8 gm/dL (2.2-3.9) 11/12/16 13:09 Albumin/Globulin Ratio 1.4 (1.0-2.1) 11/12/16 13:09 Vitamin B12 721 pg/mL (239-931) 11/12/16 18:52 25-OH Vitamin D Total 97.5 NG/ML (30.0-100.0) 11/12/16 18:52 Folate > 20.0 ng/mL 11/12/16 18:52 TSH 3rd Generation 4.07 mIU/ML (0.46-4.68) 11/12/16 18:52 Urine Color Yellow (YELLOW) 11/12/16 14:28 Urine Clarity Clear (Clear) 11/12/16 14:28 Urine pH 6.0 (5.0-8.0) 11/12/16 14:28 Ur Specific [place] 1.010 (1.003-1.030) 11/12/16 14:28 Urine Protein Negative mg/dL (NEGATIVE) 11/12/16 14:28 Urine Glucose (UA) Neg mg/dL (Normal) 11/12/16 14:28 Urine Ketones Negative mg/dL (NEGATIVE) 11/12/16 14:28 Urine Blood Moderate (NEGATIVE) 11/12/16 14:28 Urine Nitrate Negative (NEGATIVE) 11/12/16 14:28 Urine Bilirubin Negative (NEGATIVE) 11/12/16 14:28 Urine Urobilinogen 0.2-1.0 mg/dL (0.2-1.0) 11/12/16 14:28 Ur Leukocyte Esterase Small [place]/uL (Negative) 11/12/16 14:28 Urine RBC (Auto) 3 /hpf (0-3) 11/12/16 14:28 Urine Microscopic WBC 5 /hpf (0-5) 11/12/16 14:28 Urine Bacteria Occ (<OCC) H 11/12/16 14:28 - Hospital Course Hospital Course: 81 y/o male poor historian ,with PMH CAD s/p CABG, HTN, history of urinary bladder CA s/p surgical resection and urostomy bag, CKD ,paroxysmal Afib, anemia of chronic disease, came to ER for evaluation for not feeling well "after eating [place] food." Complaining of 3 day history of generalized weakness , diarrhea , subjective fever. Patient states that 3 days ago had a family gathering /celebration in a restaurant and since then he and many other family members have not been feeling well, developing multiple episodes of diarrhea. He also complains of chest congestion, SOB, feeling like food is stuck to his mid chest, progressive . This morning of admission he had 4 episodes of watery diarrhea. Denies any abdominal pain, melena. He has a urostomy bag that he changes himself once a week. In ER found to have BUN/Cr 73/1.9 CXR showed no active disease but physical exam was significant for rales, ProBNP 1890 Trop - Will admit patient to telemetry for CHF exacerbation with gastroenteritis , dehydration, acute on chronic renal failure. Patient was diuresed successfully, and Creatinine was back near baseline at time of discharge. Pt had no lower extremity edema, no JVD, no rales. Clinically resolved. BNP about 400 at time of dc. Patient was evaluated by Nephrology and Cardiology. Patient is improved and stable for discharge home with outpatient follow up with his olive pitter, fell cutter, and outside solar sales consultant. Please find hospital plan as below. 1. Acute CHF exacerbation, systolic dysfunction admit patient to telemetry ProBNp elevated 1890 Latest Echo showed EF 35 % lasix 60 Mg IV x1 dose given in ER cardiology eval appreciated and followed Resume ASA, Statin, lopressor , Lisinopril, plavix Repeat BMP in AM Cycle Troponins x 3 q8 hours to rule out ischemic event, negative tele monitoring to rule out and arrythmias 2.Suspected Gastroenteritis Given history of multiple family members experiencing multiple episode of diarrhea after sharing the same meal , gastroenteritis is very likely Start cardiac diet Protonix for GI prophylaxis , reglan PRN for nausea If diarrhea continues mild hydration Continue oral hydration for now due to CHF exacerbation Hold HCTZ 3. Acute on chronic renal failure stage III BUN / Cr 73/1.9 ( baseline GFR 30). today Cr 2.1 baseline since 2014 range 1.7 to 2.7, on admission pt 1.9 Resume renvela Close monitoring with oral hydration hold HCTZ Continue Lisinopril since patient has been taking it for a long time 4.Hypertension controlled Continue lopressor and lisinopril 5. Anemia of Chronic disease Hgb 9.5 improved today Continue ferrous sulfate supplements send anemia work up, follow up as outpatient 6.CAD s/p CABG telemetry monitoring Cycle Trop x 3 Q8 hours Continue ASA, plavix, Statin, lopressor , ACEI 7.History Bladder Ca s/p urostomy bag UA 8. DVT prophylaxis lovenox Discharge Exam - Head Exam Head Exam: ATRAUMATIC, NORMOCEPHALIC - Eye Exam Eye Exam: EOMI, Normal appearance, PERRL Pupil Exam: NORMAL ACCOMODATION - ENT Exam ENT Exam: Mucous Membranes Moist, Normal Oropharynx - Neck Exam Neck exam: Full Rom, Normal Inspection - Respiratory Exam Respiratory Exam: Clear to PA & Lateral, NORMAL BREATHING PATTERN. absent: Rales, Rhonchi - Cardiovascular Exam Cardiovascular Exam: RRR, +S1, +S2. absent: Gallop, Rubs - GI/Abdominal Exam GI & Abdominal Exam: Normal Bowel Sounds, Soft. absent: Mass, Organomegaly, Tenderness - Extremities Exam Extremities exam: normal capillary refill, pedal pulses present Additional comments: no edema - Back Exam Back exam: absent: CVA tenderness (L), CVA tenderness (R) - Neurological Exam Neurological exam: Alert, Oriented x3 - Psychiatric Exam Psychiatric exam: Normal Affect, Normal Mood - Skin Skin Exam: Dry, Warm Discharge Plan - Discharge Medications Prescriptions: Aspirin [Ecotrin] 81 mg PO DAILY #30 Cholecalciferol (Vitamin D3) [Vitamin D3] 5,000 unit PO Q48H #30 Clopidogrel [Plavix] 75 mg PO DAILY #30 Dicyclomine [Bentyl] 20 mg PO TID PRN #90 PRN Reason: abdominal pain/cramping Folic Acid 1 mg PO DAILY #30 Lisinopril/Hydrochlorothiazide [Lisinopril-Hctz 10-12.5 mg Tab] 1 tab PO DAILY # 30 Metoprolol Tartrate [Lopressor] 25 mg PO Q12 #60 Sevelamer Carbonate [Renvela] 800 mg PO TID #90 Simvastatin [Zocor] 20 mg PO DAILY #30 SulfaSALAzine [Azulfidine] 1,000 mg PO Q6H #120 Temazepam [Restoril] 30 mg PO HS #30 traZODone [Desyrel] 50 mg PO HS #30 - Follow Up Plan Condition: STABLE Disposition: HOME/ ROUTINE Additional Instructions: Patient Jai Zapata was admitted to the hospital for Congestive Heart Failure Exacerbation. Upon discharge, please follow up with your Curtain Roller Assembler in one week. Please also follow up with your Primary Care doctor, Communications Executive and Field Operations Technician in 7-10 days as well. Resume low fat low cholesterol, low sodium diet. Resume activity as tolerated. Take all medications as prescribed. Return to emergency room if condition worsens.
[2016-11-14 12:01] VITALS: BP 132/69; PULSE 66; TEMP 97.4; O2SAT 98
== END 2016-11-14 13:00 | disposition home or self-care (01) | DRG 291 ==
LOC: H.ER 12:33 → H.ERHOLD 14:32 → H.TEL 17:08
PROVIDERS: ADMIT Hospitalist; ATTEND Hospitalist
DX: I13.0 Hypertensive heart and chronic kidney disease with heart failure and stage 1 through stage 4 chronic kidney disease, or unspecified chronic kidney disease (principal); I50.21 Acute systolic (congestive) heart failure; N17.9 Acute kidney failure, unspecified; E86.0 Dehydration; Z93.6 Other artificial openings of urinary tract status; D63.1 Anemia in chronic kidney disease; I48.0 Paroxysmal atrial fibrillation; I25.10 Atherosclerotic heart disease of native coronary artery without angina pectoris; K52.9 Noninfective gastroenteritis and colitis, unspecified; N18.3 Chronic kidney disease, stage 3 (moderate); Z95.1 Presence of aortocoronary bypass graft; Z88.3 Allergy status to other anti-infective agents

== ENCOUNTER 2016-11-30 15:56 | Inpatient (IN) | payer MEDICARE, OTHER ==
[2016-11-30 17:02] LABS: BASO % 0.5 % (0.0-2.0); EOS # 0.2 K/uL (0.0-0.7); EOS % 2.6 % (0.0-4.0); HEMATOCRIT 26.4 % (35.0-51.0); LYMPH # 1.4 K/uL (1.0-4.3); LYMPH % 22.8 % (20.0-40.0); MEAN CELL VOLUME 98.1 fl (80.0-94.0); MEAN CORPUSCULAR HEMOGLOBIN 32.5 pg (27.0-31.0); MEAN CORPUSCULAR HGB CONC 33.1 g/dL (33.0-37.0); MEAN PLATELET VOLUME 7.3 fl (7.2-11.7); MONO # 0.7 K/uL (0.0-0.8); MONO % 11.1 % (0.0-10.0); NEUT # 3.8 K/uL (1.8-7.0); RED CELL DISTRIBUTION WIDTH 13.4 % (11.5-14.5); WHITE BLOOD COUNT 6.1 K/uL (4.8-10.8)
[2016-11-30 17:11] LABS: ALB/GLOB RATIO 1.5 (1.0-2.1); BILIRUBIN,TOTAL 0.3 mg/dl (0.2-1.3); CALCIUM 9.1 mg/dL (8.4-10.2); MAGNESIUM 1.6 MG/DL (1.6-2.3); POTASSIUM 4.6 MMOL/L (3.6-5.0); TOTAL PROTEIN 6.9 G/DL (6.3-8.2)
[2016-11-30 17:24] LABS: TROPONIN I 0.014 ng/mL (0.00-0.120)
--- NOTE | 2016-11-30 17:37 | RAD ---
HISTORY: SOB COMPARISON: 11/12/2016. FINDINGS: LUNGS: No active pulmonary disease. PLEURA: No significant pleural effusion identified, no pneumothorax apparent. CARDIOVASCULAR: No radiographic findings to suggest acute or significant cardiovascular disease. OSSEOUS STRUCTURES: No significant abnormalities. VISUALIZED UPPER ABDOMEN: Normal. OTHER FINDINGS: None. IMPRESSION: No active disease. No significant interval change compared to the prior examination(s).
--- NOTE | 2016-11-30 18:36 | ED PDOC ---
HPI: SOB/CHF/COPD Time Seen by Provider: 11/30/16 16:34 Chief Complaint (Nursing): Shortness Of Breath Chief Complaint (Provider): SOB History Per: Patient (81 Y/O MALE WITH PMH CAD s/p CABG, HTN, history of urinary bladder CA s/p surgical resection and urostomy bag, CKD ,paroxysmal Afib , anemia of chronic disease here for worsening watery diarrhea x 2 days 10 episodes daily and sob noted today. Denies any cough/fevers/chills. Denies any chest pain. Denies any blood in stool.) Past Medical History Reviewed: Historical Data, Nursing Documentation, Vital Signs Vital Signs: Last Vital Signs Temp 98.3 F 11/30/16 16:11 Pulse 88 11/30/16 16:11 Resp 19 11/30/16 16:49 BP 129/50 L 11/30/16 16:11 Pulse Ox 99 11/30/16 18:37 - Medical History PMH: Anemia, Atrial Fibrillation (paroxysmal), CAD, Depression, HTN, Chronic Kidney Disease Denies: Arthritis, CHF, COPD, Hypercholesterolemia, Hypothyroidism, Rheumatoid Arthritis - Surgical History Surgical History: CABG - Family History Family History: States: Unknown Family Hx - Home Medications Home Medications: Ambulatory Orders Medication Instructions Recorded Acetaminophen [Tylenol 325mg tab] 650 mg PO Q6 PRN tab 11/14/16 Acetaminophen [Tylenol 325mg tab] 650 mg PO Q6 PRN tab 11/14/16 Aspirin [Ecotrin] 81 mg PO DAILY #30 11/14/16 Cholecalciferol (Vitamin D3) 5,000 unit PO Q48H #30 11/14/16 [Vitamin D3] Clopidogrel [Plavix] 75 mg PO DAILY #30 11/14/16 Dicyclomine [Bentyl] 20 mg PO TID PRN #90 11/14/16 Folic Acid 1 mg PO DAILY #30 11/14/16 Lisinopril/Hydrochlorothiazide 1 tab PO DAILY #30 11/14/16 [Lisinopril-Hctz 10-12.5 mg Tab] Metoprolol Tartrate [Lopressor] 25 mg PO Q12 #60 11/14/16 Sevelamer Carbonate [Renvela] 800 mg PO TID #90 11/14/16 Simvastatin [Zocor] 20 mg PO DAILY #30 05/21/17 SulfaSALAzine [Azulfidine] 1,000 mg PO Q6H #120 11/14/16 Temazepam [Restoril] 30 mg PO HS #30 11/14/16 traZODone [Desyrel] 50 mg PO HS #30 11/14/16 - Allergies Allergies/Adverse Reactions: Allergies Allergy/AdvReac Type Severity Reaction Status Date / Time ciprofloxacin [From Cipro] Allergy ITCHING Verified 11/12/16 12:46 Review of Systems ROS Statement: Except As Marked, All Systems Reviewed And Found Negative Respiratory: Positive for: Shortness of Breath Gastrointestinal: Positive for: Diarrhea Physical Exam - Reviewed Nursing Documentation Reviewed: Yes Vital Signs Reviewed: Yes - Physical Exam Appears: Positive for: Well, Non-toxic, No Acute Distress Head Exam: Positive for: ATRAUMATIC, NORMAL INSPECTION, NORMOCEPHALIC Skin: Positive for: Normal Color, Warm, DRY Eye Exam: Positive for: EOMI, Normal appearance, PERRL ENT: Positive for: Normal ENT Inspection Neck: Positive for: Normal, Painless ROM Cardiovascular/Chest: Positive for: Regular Rate, Rhythm Respiratory: Positive for: Normal Breath Sounds, Rales (minimal bibasilar rales noted.) Gastrointestinal/Abdominal: Positive for: Normal Exam, Bowel Sounds, Soft Back: Positive for: Normal Inspection Extremity: Positive for: Normal ROM Neurologic/Psych: Positive for: Alert, Oriented - Laboratory Results Result Diagrams: 11/30/16 16:48 11/30/16 16:48 - ECG ECG Rhythm: Positive for: Sinus Rhythm (nsr 92 bpm no ectopy no acute changes) O2 Sat by Pulse Oximetry: 99 - Progress ED Course And Treament: cxr: read nad by dr. balderrama hgb noted 8.7 bloodwork/cxr findings d/w Dr. Samano. Patient to be admitted for observation. Disposition - Clinical Impression Clinical Impression: Diarrhea, Shortness of breath, Anemia - Patient ED Disposition Is Patient to be Admitted: Yes - Disposition Disposition Time: 18:37 Condition: FAIR - Pt Status Changed To: Hospital Disposition Of: Observation
[2016-12-01 05:36] LABS: IRON 75 ug/dL (49-181)
[2016-12-01 08:07] VITALS: RESP 18
--- NOTE | 2016-12-01 08:51 | CARD ---
APPROVED REPORT EKG Measurement Heart [id number] <Conclusion> Sinus rhythm with 1st degree AV block Incomplete right bundle branch block Inferior infarct, age undetermined Possible Anterior infarct, age undetermined Abnormal ECG
[2016-12-01] MEDS ORDERED: Patient's Own Med (Cholecalciferol (Vitamin D3) [Vitamin D3] 5,000 unit) PO SCH (09:00)
[2016-12-01] MEDS ORDERED: Patient's Own Med (Lisinopril/Hydrochlorothiazide [Lisinopril-Hctz 10-12.5 Mg Tab] 1 TAB) PO SCH (09:00)
--- NOTE | 2016-12-01 09:05 | CP.PCM.HP ---
History of Present Illness - History of Present Illness History of Present Illness: Full H&P Dictated. Ac Exacerbation of Ulcerative Colitis ?? C Diff Colitis Stable CAD (S/P CABG, Old MIs) COPD Ca Bladder (S/P Radical Bladder resection), in remission CKD (Stage III) S/P CEA Stool for c Diff Present on Admission - Present on Admission Any Indicators Present on Admission: No Past Patient History - Infectious Disease Hx of Infectious Diseases: None - Tetanus Immunizations Tetanus Immunization: Unknown - Past Medical History & Family History Past Medical History?: Yes - Past Social History Smoking Status: Never Smoked - CARDIAC Hx Atrial Fibrillation: Yes (paroxysmal) Hx Congestive Heart Failure: No Hx Hypercholesterolemia: No Hx Hypertension: Yes - PULMONARY Hx Chronic Obstructive Pulmonary Disease (COPD): No - NEUROLOGICAL HX Cerebrovascular Accident: No - HEENT Hx HEENT Problems: No - RENAL Hx Chronic Kidney Disease: Yes - ENDOCRINE/METABOLIC Hx Hypothyroidism: No - HEMATOLOGICAL/ONCOLOGICAL Hx AIDS: No Hx Anemia: Yes Hx Human Immunodeficiency Virus (HIV): No - MUSCULOSKELETAL/RHEUMATOLOGICAL Hx Arthritis: Yes Hx Falls: No - GASTROINTESTINAL Hx Gastrointestinal Disorders: No - GENITOURINARY/GYNECOLOGICAL Hx Genitourinary Disorders: Yes Hx Bladder Cancer: Yes (s/p bladder resction and urostomy bag) - PSYCHIATRIC Hx Depression: Yes Hx Substance Use: No - SURGICAL HISTORY Hx Coronary Artery Bypass Graft: Yes - ANESTHESIA Hx Anesthesia: Yes Hx Anesthesia Reactions: No Hx Malignant Hyperthermia: No Meds Allergies/Adverse Reactions: Allergies Allergy/AdvReac Type Severity Reaction Status Date / Time ciprofloxacin [From Cipro] Allergy ITCHING Verified 11/12/16 12:46 Results - Vital Signs Recent Vital Signs: Last Vital Signs Temp 97.5 F L 12/01/16 08:06 Pulse 73 12/01/16 08:06 Resp 18 12/01/16 08:06 BP 117/65 12/01/16 08:06 Pulse Ox 98 12/01/16 08:06 - Labs Result Diagrams: 11/30/16 16:48 11/30/16 16:48 Labs: Laboratory Results - last 24 hr 12/01/16 12/01/16 12/01/16 04:10 04:10 04:10 Retic Count 4.0 H D Iron 75 TIBC 265 % Saturation 28 Ferritin 52.5 Vitamin B12 659
[2016-12-01] MEDS: Enoxaparin 30 mg Syringe SC SCH (09:17)
--- NOTE | 2016-12-01 09:30 | HP ---
He is hospitalized under my care in room 402, bed 1. HISTORY OF PRESENT ILLNESS: This 81-year-old man came into the hospital with persistent diarrhea and was finally directed to the Emergency Room by his memorial designer. 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 The patient also has had carotid surgery because of critical carotid stenosis. 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 The patient has had recurring urinary tract infection as a consequence of this. The patient also has chronic renal disease and sees a revising clerk on a regular basis. He has had ulcerative colitis and had been taking oral medications, underwent a colonoscopy in May of last year where a couple of polyps were removed, but his disease was mostly in remission. A CT scan of the abdomen in August did not show anything significant. The patient has been using Azulfidine to manage it for a number of years and was recently given corticosteroid enemas with some relief. Yesterday, the patient developed a persistent diarrhea which initially was watery, but eventually was mostly mucoid with hardly any stool being produced towards the end. He came to the Emergency Room and was hospitalized. He denies any fever or severe cramping in the abdomen. Denies any nausea, vomiting. His appetite is still well preserved. The patient has had chronic dyspnea on exertion and has had significant left ventricular systolic dysfunction. He has not seen his urologist for more than a year. He has not seen his oncologist for more than a couple of years. PHYSICAL EXAMINATION: GENERAL: Shows an elderly man who is moderately depressed, has not had any further diarrhea for approximately 14 hours. VITAL SIGNS: Telemetry shows a steady sinus rhythm at 80 beats per minute, regular and his blood pressure was 124/70 mmHg. NECK: His jugular venous pressure was not elevated. EXTREMITIES: There was no edema over his lower extremities. The pedal pulses were not palpable. A scar of carotid endarterectomy was evident on the right side of his neck. A sternotomy scar was evident. CHEST: Mildly emphysematous. HEART: The apex was not palpable. The first and second heart sounds were normal. There was a brief apical systolic murmur. There was no S3 gallop. LUNGS: There were no rales. The expiration was slightly prolonged. ABDOMEN: Soft. A urostomy bag was in place. Urostomy was functioning. No abdominal masses were palpable. RECTAL: Deferred. 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 His QRS duration was 106 milliseconds consistent with an incomplete right bundle branch block, a finding that was seen on earlier electrocardiograms as well. His chest x-ray did not show any evidence of congestive cardiac failure. LABORATORY DATA: Showed a normocytic normochromic anemia with a hemoglobin of 8.7 grams and a hematocrit of 26.4%, respectively. His WBC count was 6100 of which 63% were neutrophils and 22% were lymphocytes. His platelet count was 141 ,000, MCV was 98 indicating no chronic blood loss with microcytosis. His reticulocyte count was 4% indicating an appropriate bone marrow response to his anemia. BUN and creatinine were 56 and 1.7 mg% which were an improvement over his last blood test at the end of October at his memorial designer's office. His liver profile was normal. His iron studies showed a total serum iron of 75 with a TIBC of 265. Iron saturation was 28% and his ferritin was 52 which was within normal limits. His vitamin B12 level was 659 mcg which is within normal limits. Liver profile again was normal. 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 The bladder malignancy is in remission with stage III chronic kidney disease. The patient has normocytic normochromic anemia, probably secondary to ulcerative colitis and recent blood loss. A stool will be sent for Clostridium difficile and if negative, the patient would be allowed to return home to care of his memorial designer. If positive, he will require treatment for presence of Clostridium difficile colitis. At this point, he is afebrile and his WBC count is normal, so I suspect acute Clostridium difficile colitis probably is not playing a role. I have discussed his case at length with his memorial designer. Sherwin V Damle MD cc: 23 TT: 12/01/2016 09:28:53 tn MTDD
[2016-12-02 04:59] VITALS: O2SAT 96
[2016-12-02 08:16] VITALS: BP 132/69; PULSE 69; TEMP 97.5
[2016-12-02] MEDS: Enoxaparin 30 mg Syringe SC SCH (08:40)
--- NOTE | 2016-12-02 08:55 | CP.PCM.PN ---
Subjective - Date & Time of Evaluation Date of Evaluation: 12/02/16 Time of Evaluation: 08:40 - Subjective Subjective: Has had 2 BMs yesterday, fairly formed No fever, no cramps Stool for c diff neg Stool for OB neg Vital signs stable Pt to go home on present Rx and to see Dr. Hilliard as out pt Spoke with pt's daughter at length. Objective - Vital Signs/Intake and Output Vital Signs (last 24 hours): Temp Pulse Resp BP Pulse Ox 97.5 F L 69 18 132/69 96 12/02/16 08:00 12/02/16 08:39 12/02/16 08:00 12/02/16 08:39 12/02/16 08:00 Intake and Output: 12/02/16 12/02/16 06:59 18:59 Intake Total 360 Output Total 1250 Balance -890 - Medications Medications: Current Medications Acetaminophen (Tylenol 325mg Tab) 650 mg PO Q6 PRN PRN Reason: Pain, Mild (1-3) Aspirin (Ecotrin) 81 mg PO DAILY [facility] Last Admin: 12/02/16 08:38 Dose: 81 mg Atorvastatin Calcium (Lipitor) 10 mg PO DAILY [facility] Last Admin: 12/02/16 08:40 Dose: 10 mg Cholecalciferol (Vitamin D) 5,000 iu PO Q48H [facility] Last Admin: 12/01/16 00:08 Dose: Not Given Clopidogrel Bisulfate (Plavix) 75 mg PO DAILY [facility] Last Admin: 12/02/16 08:37 Dose: 75 mg Dicyclomine HCl (Bentyl) 20 mg PO TID PRN PRN Reason: abdominal pain/cramping Enoxaparin Sodium (Lovenox) 30 mg SC DAILY [facility] PRN Reason: Protocol Last Admin: 12/02/16 08:40 Dose: 30 mg Folic Acid (Folic Acid) 1 mg PO DAILY [facility] Last Admin: 12/02/16 08:40 Dose: 1 mg Hydrochlorothiazide (Microzide) 12.5 mg PO DAILY [facility] Last Admin: 12/02/16 08:40 Dose: 12.5 mg Lisinopril (Zestril) 10 mg PO DAILY [facility] Last Admin: 12/02/16 08:39 Dose: 10 mg Metoprolol Tartrate (Lopressor) 25 mg PO Q12 [facility] Last Admin: 12/02/16 08:38 Dose: 25 mg Sevelamer HCl (Renagel) 800 mg PO TID [facility] Last Admin: 12/02/16 08:37 Dose: 800 mg Sulfasalazine (Azulfidine) 1,000 mg PO Q6H [facility] Last Admin: 12/02/16 05:25 Dose: 1,000 mg Temazepam (Restoril) 30 mg PO HS [facility] Last Admin: 12/01/16 21:55 Dose: 30 mg Trazodone HCl (Desyrel) 50 mg PO [facility] Last Admin: 12/01/16 22:00 Dose: 50 mg
== END 2016-12-02 10:15 | disposition home or self-care (01) | DRG 387 ==
LOC: H.ER 15:56 → H.ERHOLD 18:31 → H.TEL 21:47 → OBSVTOIN 12-01 13:44
PROVIDERS: ADMIT Internal Medicine Cardiovascular Disease; ATTEND Internal Medicine Cardiovascular Disease
DX: K51.90 Ulcerative colitis, unspecified, without complications (principal); I48.0 Paroxysmal atrial fibrillation; J44.9 Chronic obstructive pulmonary disease, unspecified; I65.29 Occlusion and stenosis of unspecified carotid artery; I12.9 Hypertensive chronic kidney disease with stage 1 through stage 4 chronic kidney disease, or unspecified chronic kidney disease; F32.9 Major depressive disorder, single episode, unspecified; I25.10 Atherosclerotic heart disease of native coronary artery without angina pectoris; I25.2 Old myocardial infarction; Z87.891 Personal history of nicotine dependence; N18.3 Chronic kidney disease, stage 3 (moderate); Z79.02 Long term (current) use of antithrombotics/antiplatelets; Z79.82 Long term (current) use of aspirin; Z79.899 Other long term (current) drug therapy; Z85.51 Personal history of malignant neoplasm of bladder; Z95.1 Presence of aortocoronary bypass graft; D64.89 Other specified anemias

== ENCOUNTER 2017-08-19 23:01 | Inpatient (IN) | payer MEDICARE, BC ==
[2017-08-19] MEDS ORDERED: Morphine 4 MG/ML VIAL ONE (23:35)
--- NOTE | 2017-08-20 00:08 | ED PDOC ---
HPI: Back Time Seen by Provider: 08/19/17 23:09 Chief Complaint (Nursing): Back Pain Chief Complaint (Provider): low back pain History Per: Patient History/Exam Limitations: no limitations Onset/Duration Of Symptoms: Days (14 days ago) Current Symptoms Are (Timing): Still Present Pain Scale Rating Of: 10 Additional Complaint(s): 81 yo [place] male, brought in by EMS, with a history of asthma, CAD, bladder cancer, CABG, bladder disection, and a ureterostomy, presents to the ED complaining of worsened low pack pain, onset of 14 days ago. Patient was seen by his own physician and in the ED of [facility], where he says X- rays were done and show sciatica. Patient also reports the pain as constant, worsens with movement, and not relieved after taking the percocet, ultram, and motrin prescribed to him. Past Medical History Reviewed: Historical Data, Nursing Documentation, Vital Signs Vital Signs: Last Vital Signs Temp 97.5 F L 08/19/17 23:13 Pulse 99 H 08/19/17 23:04 Resp 18 08/19/17 23:04 BP 171/117 H 08/19/17 23:13 Pulse Ox 98 08/19/17 23:04 - Medical History PMH: Anemia, Arthritis, Atrial Fibrillation (paroxysmal), CAD, Depression, HTN, Chronic Kidney Disease Denies: CHF, COPD, HIV, Hypercholesterolemia, Hypothyroidism, Rheumatoid Arthritis - Surgical History Surgical History: CABG Other surgeries: Ureterostomy - Family History Family History: States: Unknown Family Hx - Social History Current smoker - smoking cessation education provided: No Ex-Smoker (has not smoked in the last 12 months): No Alcohol: None Drugs: Denies - Home Medications Home Medications: Ambulatory Orders Medication Instructions Recorded Acetaminophen [Tylenol 325mg tab] 650 mg PO Q6 PRN tab 11/14/16 Acetaminophen [Tylenol 325mg tab] 650 mg PO Q6 PRN tab 11/14/16 Aspirin [Ecotrin] 81 mg PO DAILY #30 11/14/16 Cholecalciferol (Vitamin D3) 5,000 unit PO Q48H #30 11/14/16 [Vitamin D3] Clopidogrel [Plavix] 75 mg PO DAILY #30 11/14/16 Dicyclomine [Bentyl] 20 mg PO TID PRN #90 11/14/16 Folic Acid 1 mg PO DAILY #30 11/14/16 Lisinopril/Hydrochlorothiazide 1 tab PO DAILY #30 11/14/16 [Lisinopril-Hctz 10-12.5 mg Tab] Metoprolol Tartrate [Lopressor] 25 mg PO Q12 #60 11/14/16 Sevelamer Carbonate [Renvela] 800 mg PO TID #90 11/14/16 Simvastatin [Zocor] 20 mg PO DAILY #30 11/14/16 SulfaSALAzine [Azulfidine] 1,000 mg PO Q6H #120 11/14/16 Temazepam [Restoril] 30 mg PO HS #30 11/14/16 traZODone [Desyrel] 50 mg PO HS #30 11/14/16 Lisinopril [Zestril] 10 mg PO DAILY tab 12/02/16 Sevelamer [Renagel] 800 mg PO TID tab 12/02/16 hydroCHLOROthiazide [Microzide] 12.5 mg PO DAILY cap 12/02/16 traZODone [Desyrel] 50 mg PO HS tab 12/02/16 Cyclobenzaprine [Flexeril] 10 mg PO TID 08/19/17 Ibuprofen [Motrin Tab] 600 mg PO Q6H 08/19/17 Oxycodone HCl/Acetaminophen 1 tab PO Q6 PRN 08/19/17 [Oxycodone-Acetaminophen 5-325] Tramadol HCl/Acetaminophen 1 tab PO TID PRN 08/19/17 [Tramadol-Acetaminophn 37.5-325] - Allergies Allergies/Adverse Reactions: Allergies Allergy/AdvReac Type Severity Reaction Status Date / Time ciprofloxacin [From Cipro] Allergy ITCHING Verified 11/12/16 12:46 Review of Systems ROS Statement: Except As Marked, All Systems Reviewed And Found Negative Constitutional: Negative for: Fever Musculoskeletal: Positive for: Back Pain (low back pain) Physical Exam - Reviewed Nursing Documentation Reviewed: Yes Vital Signs Reviewed: Yes - Physical Exam Appears: Positive for: Non-toxic, Uncomfortable Head Exam: Positive for: ATRAUMATIC, NORMAL INSPECTION, NORMOCEPHALIC Skin: Positive for: Normal Color, Warm, DRY Eye Exam: Positive for: EOMI, Normal appearance, PERRL Neck: Positive for: Normal, Painless ROM Cardiovascular/Chest: Positive for: Regular Rate, Rhythm. Negative for: Murmur Respiratory: Positive for: Normal Breath Sounds. Negative for: Respiratory Distress Gastrointestinal/Abdominal: Positive for: Normal Exam, Soft, Other ( ureterostomy on the right ). Negative for: Tenderness Back: Positive for: Other (no spinal tenderness) Extremity: Positive for: Normal ROM. 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 There is no evidence of acute fracture. There is no evidence of malalignment or dislocation. There is moderate diffuse osteopenia. L1-2: Mild diffuse disc bulge and facet arthropathy result in moderate spinal canal stenosis. No significant neuroforaminal stenosis. L2-3: Moderate diffuse disc bulge and facet arthropathy results in moderate to severe spinal canal stenosis. Mild bilateral neuroforaminal narrowing. L3-4: Moderate to severe disc bulge and central disc extrusion with cephalad extension of the herniated disc posterior to the L3 vertebral body. Facet arthropathy. This results in severe spinal canal stenosis and compression of the thecal sac. Severe bilateral neuroforaminal narrowing. L4-5: Disc space narrowing, endplate spurs with sclerosis, vacuum disc phenomenon and facet arthropathy. Diffuse disc bulge. This results in moderate spinal canal stenosis and bilateral neuroforaminal narrowing. L5-S1: Partial sacralization of the L5 vertebral body. Facet arthropathy. No disc herniation. The facet joints are intact. The sacroiliac joints are intact. The vasculature demonstrates diffuse severe atherosclerotic calcification. There is no evidence of an abdominal aortic aneurysm. There is a simple cyst in the left kidney. IMPRESSION: No acute fracture or dislocation. Congenitally small spinal canal. L3-4 moderate to severe diffuse disc bulge and large central disc extrusion with cephalad extension of the herniated disc. Severe spinal canal stenosis and compression of the thecal sac. Further evaluation with MRI of the lumbar spine could be obtained. Disc bulges at multiple levels as described. --01:33 Patient reports persistent pain after taken 2 doses of morphine. Labs reviewed and reveal no clinically significant abnormalities. patient case discussed with Dr. Germain and is going to be accepting care of the patient. Diagnosis: acute lumbago, intractable back pain, herniated disc Scribe Attestation: Documented by Turner Alfredo acting as a scribe for Emory Cage MD. Provider Attestation: All medical record entries made by the Scribe were at my direction and personally dictated by me. I have reviewed the chart and agree that the record accurately reflects my personal performance of the history, physical exam, medical decision making, and the department course for this patient. I have also personally directed, reviewed, and agree with the discharge instructions and disposition. Disposition - Clinical Impression Clinical Impression: Herniated disc - Patient ED Disposition Is Patient to be Admitted: Yes Discussed With DrKermit: Thom Germain - Disposition Disposition Time: :33 Condition: FAIR Forms: [employer])
[2017-08-20] MEDS ORDERED: Morphine 4 MG/ML VIAL IVP ONE ×2 (00:09→00:39)
[2017-08-20 00:21] LABS: BASO % 0.3 % (0.0-2.0); EOS # 0.2 K/uL (0.0-0.7); EOS % 2.6 % (0.0-4.0); HEMOGLOBIN 11.9 g/dL (12.0-18.0); LYMPH # 1.8 K/uL (1.0-4.3); LYMPH % 20.7 % (20.0-40.0); MEAN CELL VOLUME 92.6 fl (80.0-94.0); MEAN CORPUSCULAR HGB CONC 34.6 g/dL (33.0-37.0); MEAN PLATELET VOLUME 7.2 fl (7.2-11.7); MONO # 1.2 K/uL (0.0-0.8); MONO % 14.4 % (0.0-10.0); NEUT # 5.4 K/uL (1.8-7.0); NRBC % 0.1 % (0.0-0.0); RBC 3.73 Mil/uL (4.40-5.90); RED CELL DISTRIBUTION WIDTH 12.7 % (11.5-14.5); WHITE BLOOD COUNT 8.6 K/uL (4.8-10.8)
[2017-08-20 00:26] LABS: SQUAMOUS EPITHIAL < 1 /hpf (0-5); URINE BACTERIA MOD (<OCC); URINE BILIRUBIN NEGATIVE (NEGATIVE); URINE BLOOD SMALL (NEGATIVE); URINE CLARITY SLIGHTY-CLOUDY (Clear); URINE COLOR STRAW (YELLOW); URINE GLUCOSE (UA) NEG (Normal); URINE LEUKOCYTE ESTERASE LARGE Leu/uL (Negative); URINE NITRATE NEGATIVE (NEGATIVE); URINE PROTEIN 100 mg/dL (NEGATIVE); URINE UROBILINOGEN 0.2-1.0 mg/dL (0.2-1.0)
[2017-08-20] MEDS ORDERED: Morphine 4 MG/ML VIAL ONE (00:34)
[2017-08-20 01:11] LABS: ALB/GLOB RATIO 1.3 (1.0-2.1); ALBUMIN 4.4 g/dL (3.5-5.0); CALCIUM 9.4 mg/dL (8.4-10.2)
--- NOTE | 2017-08-20 01:25 | CT ---
EXAM: CT Lumbar Spine Without Intravenous Contrast CLINICAL HISTORY: 81 years old, male; Pain; Low back pain TECHNIQUE: Axial computed tomography images of the lumbar spine without intravenous contrast. All CT scans at this facility use one or more dose reduction techniques, viz.: automated exposure control; ma/kV adjustment per patient size (including targeted exams where dose is matched to indication; i.e. head); or iterative reconstruction technique. Coronal and sagittal reformatted images were created and reviewed. COMPARISON: No relevant prior studies available. 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 There is no evidence of acute fracture. There is no evidence of malalignment or dislocation. There is moderate diffuse osteopenia. L1-2: Mild diffuse disc bulge and facet arthropathy result in moderate spinal canal stenosis. No significant neuroforaminal stenosis. L2-3: Moderate diffuse disc bulge and facet arthropathy results in moderate to severe spinal canal stenosis. Mild bilateral neuroforaminal narrowing. L3-4: Moderate to severe disc bulge and central disc extrusion with cephalad extension of the herniated disc posterior to the L3 vertebral body. Facet arthropathy. This results in severe spinal canal stenosis and compression of the thecal sac. Severe bilateral neuroforaminal narrowing. L4-5: Disc space narrowing, endplate spurs with sclerosis, vacuum disc phenomenon and facet arthropathy. Diffuse disc bulge. This results in moderate spinal canal stenosis and bilateral neuroforaminal narrowing. L5-S1: Partial sacralization of the L5 vertebral body. Facet arthropathy. No disc herniation. The facet joints are intact. The sacroiliac joints are intact. The vasculature demonstrates diffuse severe atherosclerotic calcification. There is no evidence of an abdominal aortic aneurysm. There is a simple cyst in the left kidney. IMPRESSION: No acute fracture or dislocation. Congenitally small spinal canal. L3-4 moderate to severe diffuse disc bulge and large central disc extrusion with cephalad extension of the herniated disc. Severe spinal canal stenosis and compression of the thecal sac. Further evaluation with MRI of the lumbar spine could be obtained. Disc bulges at multiple levels as described.
--- NOTE | 2017-08-20 01:52 | CP.PCM.HP ---
History of Present Illness - History of Present Illness History of Present Illness: Chief Complaint: Lower back paint The Patient was seen and asamined in the ED HPI: The hx is obtained from the patient and after reviewer of the medical records. He is an 81 years old male with hx of CAD s/p CABG, CHF, CKD Bladder cancer with Urostomy and lower back pain s/p surgery to the back. He comes with a 14 days hx of severe, worsening lower back pain, that makes it impossible to ambulate. The pain is not radiating down the lower extremities, not associated with fever and he passes urine in the Urostomy bag. the pain is not relieved with Percocet, Ultram nor Motrin. He was seen at the [facility] in the ED one day before this admission for the same lower back pain and was treated and discharged. PMH: Anemia, Arthritis, Atrial Fibrillation (paroxysmal), CAD with stents; , Depression, HTN, CKD; CHF systolic dysfunction; Bladder Cancer; Lung CA; P A Fib ; PSH: CABG; Urostomy; Back surgery; Lung resection; SH: Ex Smoker; No illegal drug use; No ETOH; Walk with a walker; Live with family FH: States: Unknown Family Hx Allergies: Ciprofloxacin Medication: Reviewed Present on Admission - Present on Admission Any Indicators Present on Admission: No History of DVT/PE: No History of Uncontrolled Diabetes: No Urinary Catheter: No Decubitus Ulcer Present: No Review of Systems - Constitutional Constitutional: Fatigue, Headache. absent: Anorexia, Chills, Fever, Lethargy, Night Sweats, Weakness - EENT Eyes: Requires Corrective Lenses. absent: Diplopia, Floaters, Sees Flashes Ears: absent: Decreased Hearing, Ear Discharge, Ear Pain, Tinnitus Nose/Mouth/Throat: absent: Epistaxis, Nasal Congestion, Sinus Pain, Sinus Pressure - Cardiovascular Cardiovascular: Dyspnea. absent: Chest Pain, Edema, Palpitations - Respiratory Respiratory: Dyspnea. absent: Cough, Wheezing, Stridor, Chest Congestion - Musculoskeletal Musculoskeletal: Arthralgias, Back Pain. absent: Muscle Weakness - Integumentary Integumentary: absent: Pruritus, Rash, Skin Ulcer, Sores, Striae, Swelling - Neurological Neurological: absent: Confusion, Focal Weakness, Loss of Vision, Weakness - Psychiatric Psychiatric: Depression. absent: Anxiety, Panic Attacks - Endocrine Endocrine: absent: Palpitations, Polydipsia, Polyphagia, Polyuria - Hematologic/Lymphatic Hematologic: absent: Easy Bleeding, Easy Bruising Past Patient History - Infectious Disease Hx of Infectious Diseases: None - Tetanus Immunizations Tetanus Immunization: Unknown - Past Medical History & Family History Past Medical History?: Yes - Past Social History Smoking Status: Former Smoker Chewing Tobacco Use: No Cigar Use: No Alcohol: None Drugs: Denies Home Situation {Lives}: With Family - CARDIAC Hx Atrial Fibrillation: Yes (paroxysmal) Hx Congestive Heart Failure: No Hx Hypercholesterolemia: No Hx Hypertension: Yes - PULMONARY Hx Chronic Obstructive Pulmonary Disease (COPD): No - NEUROLOGICAL HX Cerebrovascular Accident: No - HEENT Hx HEENT Problems: No - RENAL Hx Chronic Kidney Disease: Yes Other/Comment: bvladder cancer with Urostomy - ENDOCRINE/METABOLIC Hx Endocrine Disorders: No Hx Hypothyroidism: No - HEMATOLOGICAL/ONCOLOGICAL Hx Anemia: Yes Hx Human Immunodeficiency Virus (HIV): No - INTEGUMENTARY Hx Dermatological Problems: No - MUSCULOSKELETAL/RHEUMATOLOGICAL Hx Arthritis: Yes Hx Rheumatoid Arthritis: No - GASTROINTESTINAL Hx Gastrointestinal Disorders: No - GENITOURINARY/GYNECOLOGICAL Hx Genitourinary Disorders: Yes Hx Bladder Cancer: Yes (s/p bladder resction and urostomy bag) - PSYCHIATRIC Hx Depression: Yes - SURGICAL HISTORY Hx Coronary Artery Bypass Graft: Yes Other/Comment: lobectomy; Urostomy - ANESTHESIA Hx Anesthesia: Yes Hx Anesthesia Reactions: No Hx Malignant Hyperthermia: No Meds Allergies/Adverse Reactions: Allergies Allergy/AdvReac Type Severity Reaction Status Date / Time ciprofloxacin [From Cipro] Allergy ITCHING Verified 11/12/16 12:46 Physical Exam - Constitutional Appears: No Acute Distress - Head Exam Head Exam: ATRAUMATIC, NORMAL INSPECTION, NORMOCEPHALIC - Eye Exam Eye Exam: EOMI, Normal appearance Pupil Exam: NORMAL ACCOMODATION, PERRL - ENT Exam ENT Exam: Mucous Membranes Moist, Normal Exam, Normal Oropharynx - Neck Exam Neck exam: Positive for: Full Rom, Normal Inspection. Negative for: Lymphadenopathy, Tenderness - Respiratory Exam Respiratory Exam: Rales. absent: Rhonchi, Wheezes, Stridor - Cardiovascular Exam Cardiovascular Exam: +S1, +S2 - GI/Abdominal Exam Additional comments: Abdomen Full, firm non tender with Urostomy bag at the right mid region - Rectal Exam Rectal Exam: Deferred - Extremities Exam Extremities exam: Positive for: full ROM, normal inspection. Negative for: calf tenderness, joint swelling, pedal edema, tenderness - Back Exam Back exam: NORMAL INSPECTION - Neurological Exam Neurological exam: Reflexes Normal - Psychiatric Exam Psychiatric exam: Normal Affect, Normal Mood - Skin Skin Exam: Intact, Normal Color, Pallor, Warm Results - Vital Signs Recent Vital Signs: Last Vital Signs Temp 97.5 F L 08/19/17 23:13 Pulse 99 H 08/19/17 23:04 Resp 18 08/19/17 23:04 BP 171/117 H 08/19/17 23:13 Pulse Ox 98 08/20/17 01:38 - Labs Result Diagrams: 08/20/17 00:10 08/20/17 00:10 Labs: Laboratory Results - last 24 hr 08/20/17 08/20/17 08/20/17 00:10 00:10 00:10 WBC 8.6 RBC 3.73 L Hgb 11.9 L D Hct 34.6 L MCV 92.6 D MCH 32.0 H MCHC 34.6 RDW 12.7 Plt Count 223 MPV 7.2 Neut % (Auto) 62.0 Lymph % (Auto) 20.7 [place] % (Auto) 14.4 H Eos % (Auto) 2.6 Baso % (Auto) 0.3 Neut # (Auto) 5.4 Lymph # (Auto) 1.8 [place] # (Auto) 1.2 H Eos # (Auto) 0.2 Baso # (Auto) 0.0 Sodium 132 Potassium 5.1 H Chloride 96 L Carbon Dioxide 20 L Anion Gap 21 H BUN 63 H Creatinine 1.9 H Est GFR ( Amer) 41 Est GFR (Non-Af Amer) 34 Random Glucose 104 Calcium 9.4 Total Bilirubin 0.5 AST 29 ALT 36 Alkaline Phosphatase 97 Total Protein 7.7 Albumin 4.4 Globulin 3.4 Albumin/Globulin Ratio 1.3 Urine Color Straw Urine Clarity Slighty-cloudy Urine pH 7.0 Ur Specific [place] 1.008 Urine Protein 100 Urine Glucose (UA) Neg Urine Ketones Negative Urine Blood Small Urine Nitrate Negative Urine Bilirubin Negative Urine Urobilinogen 0.2-1.0 Ur Leukocyte Esterase Large Urine RBC (Auto) 4 H Urine Microscopic WBC 18 H Ur Squamous Epith Cells < 1 Urine Bacteria Mod H - Imaging and Cardiology Lumbar Spine CT Additional comment: EXAM: CT Lumbar Spine Without Intravenous Contrast FINDINGS: The spinal canal is congenitally small. There is no evidence of acute fracture. There is no evidence of malalignment or dislocation. There is moderate diffuse osteopenia. L1-2: Mild diffuse disc bulge and facet arthropathy result in moderate spinal canal stenosis. No significant neuroforaminal stenosis. L2-3: Moderate diffuse disc bulge and facet arthropathy results in moderate to severe spinal canal stenosis. Mild bilateral neuroforaminal narrowing. L3-4: Moderate to severe disc bulge and central disc extrusion with cephalad extension of the herniated disc posterior to the L3 vertebral body. Facet arthropathy. This results in severe spinal canal stenosis and compression of the thecal sac. Severe bilateral neuroforaminal narrowing. L4-5: Disc space narrowing, endplate spurs with sclerosis, vacuum disc phenomenon and facet arthropathy. Diffuse disc bulge. This results in moderate spinal canal stenosis and bilateral neuroforaminal narrowing. L5-S1: Partial sacralization of the L5 vertebral body. Facet arthropathy. No disc herniation. The facet joints are intact. The sacroiliac joints are intact. The vasculature demonstrates diffuse severe atherosclerotic calcification. There is no evidence of an abdominal aortic aneurysm. There is a simple cyst in the left kidney. IMPRESSION: No acute fracture or dislocation. Congenitally small spinal canal. L3-4 moderate to severe diffuse disc bulge and large central disc extrusion with cephalad extension of the herniated disc. Severe spinal canal stenosis and compression of the thecal sac. Further evaluation with MRI of the lumbar spine could be obtained. Disc bulges at multiple levels as described. Assessment & Plan - Assessment and Plan (Free Text) Assessment: #. Intractible back pain #. lumbar disc herneation #. Hyperkalemia #. HTN #. Acute on chronic kidney disease #. CAD #. Anemia Plan: 81 years old male with hx of CAD s/p CABG, CHF, CKD Bladder cancer with Urostomy and lower back pain s/p surgery to the back, comes with a 14 days of worsening lower back pain, that makes it impossible to ambulate, not radiating down the lower extremities and not associated with fever. #. Intractible back pain with lumbar disc herneation , L3-4 severe disc bulge and large central disc extrusion. - Consult Neuro surgery Dr Abarca - Hold ASA/ Plavix/ - Pain management . No NSAID because of HTN and renal failure. - Percocet - IV Morphine for break through pain - PT/OT #. Hyperkalemia - Hold Lisinopril - Follow electrolytes #. HTN - Metoprolol increased to 50mg Q12 - follow Blood pressure #. Acute on chronic kidney disease - IV fluids NS at 44mls/Hr #. CAD s/p CAGB - Consult Dr Samano swimming coach or instructor - Hold ASA/ Plavix until decision is made for or against back surgery #. Anemia - Vitamin B12 - Folate - Follow Hb #. DVT Prophylaxis with SCD - Heparin Sub Q as this could be stopped shortly before surgery #. Code Status: Full - Date & Time Date: 08/20/17 Time: 01:52
[2017-08-20] MEDS ORDERED: Oxycodone/Acetaminophen 5/325 mg Tab PO PRN (02:56)
[2017-08-20] MEDS: Sodium Chloride 0.9% 1,000 ML IV SCH (03:47)
[2017-08-20] MEDS: Cholecalciferol 1,000 INTLU TAB PO SCH (03:48)
[2017-08-20] MEDS ORDERED: Morphine 4 MG/ML VIAL IVP PRN (04:25)
[2017-08-20 08:28] LABS: BASO % 0.4 % (0.0-2.0); EOS # 0.2 K/uL (0.0-0.7); EOS % 2.5 % (0.0-4.0); HEMOGLOBIN 11.9 g/dL (12.0-18.0); LYMPH # 2.2 K/uL (1.0-4.3); LYMPH % 25.7 % (20.0-40.0); MEAN CELL VOLUME 92.4 fl (80.0-94.0); MEAN CORPUSCULAR HEMOGLOBIN 32.6 pg (27.0-31.0); MEAN CORPUSCULAR HGB CONC 35.3 g/dL (33.0-37.0); MEAN PLATELET VOLUME 7.1 fl (7.2-11.7); MONO # 1.2 K/uL (0.0-0.8); MONO % 13.8 % (0.0-10.0); NEUT # 4.9 K/uL (1.8-7.0); NEUT % 57.6 % (50.0-75.0); NRBC % 0.3 % (0.0-0.0); RBC 3.65 Mil/uL (4.40-5.90); RED CELL DISTRIBUTION WIDTH 12.7 % (11.5-14.5); WHITE BLOOD COUNT 8.6 K/uL (4.8-10.8)
[2017-08-20] MEDS: Oxycodone/Acetaminophen 5/325 mg Tab PO PRN (09:55)
[2017-08-20] MEDS ORDERED: diaZEpam 10 mg/2 ml Inj IVP ONE (10:23)
--- NOTE | 2017-08-20 10:27 | CP.PCM.CON ---
History of Present Illness - History of Present Illness History of Present Illness: 81 years old male with hx of CAD s/p CABG, CHF, CKD Bladder cancer with Urostomy and lower back pain s/p surgery to the back. He comes with a 14 days hx of severe, worsening lower back pain, that makes it impossible to ambulate. The pain is not radiating down the lower extremities, not associated with fever and he passes urine in the Urostomy bag. the pain is not relieved with Percocet, Ultram nor Motrin. He was seen at the [facility] in the ED one day before this admission for the same lower back pain and was treated and discharged. EKG: normal PMH: Anemia, Arthritis, Atrial Fibrillation (paroxysmal), CAD with stents; , Depression, HTN, CKD; CHF systolic dysfunction; Bladder Cancer; Lung CA; PSH: CABG; Urostomy; Back surgery; Lung resection Cardiac chavez the pt is stable Past Patient History - Infectious Disease Hx of Infectious Diseases: None - Tetanus Immunizations Tetanus Immunization: Unknown - Past Medical History & Family History Past Medical History?: Yes - Past Social History Smoking Status: Former Smoker Chewing Tobacco Use: No Cigar Use: No Alcohol: None Drugs: Denies Home Situation {Lives}: With Family - CARDIAC Hx Atrial Fibrillation: Yes (paroxysmal) Hx Congestive Heart Failure: No Hx Hypercholesterolemia: No Hx Hypertension: Yes - PULMONARY Hx Chronic Obstructive Pulmonary Disease (COPD): No - NEUROLOGICAL HX Cerebrovascular Accident: No - HEENT Hx HEENT Problems: No - RENAL Hx Chronic Kidney Disease: Yes Other/Comment: bvladder cancer with Urostomy - ENDOCRINE/METABOLIC Hx Endocrine Disorders: No Hx Hypothyroidism: No - HEMATOLOGICAL/ONCOLOGICAL Hx Anemia: Yes Hx Human Immunodeficiency Virus (HIV): No - INTEGUMENTARY Hx Dermatological Problems: No - MUSCULOSKELETAL/RHEUMATOLOGICAL Hx Arthritis: Yes Hx Rheumatoid Arthritis: No - GASTROINTESTINAL Hx Gastrointestinal Disorders: No - GENITOURINARY/GYNECOLOGICAL Hx Genitourinary Disorders: Yes Hx Bladder Cancer: Yes (s/p bladder resction and urostomy bag) - PSYCHIATRIC Hx Depression: Yes - SURGICAL HISTORY Hx Coronary Artery Bypass Graft: Yes Other/Comment: lobectomy; Urostomy - ANESTHESIA Hx Anesthesia: Yes Hx Anesthesia Reactions: No Hx Malignant Hyperthermia: No Meds Allergies/Adverse Reactions: Allergies Allergy/AdvReac Type Severity Reaction Status Date / Time ciprofloxacin [From Cipro] Allergy ITCHING Verified 11/12/16 12:46 - Medications Medications: Current Medications Acetaminophen (Tylenol 325mg Tab) 650 mg PO Q6 PRN PRN Reason: Fever >100.4 F Acetaminophen (Tylenol 325mg Tab) 650 mg PO Q6 PRN PRN Reason: Pain, Mild (1-3) Atorvastatin Calcium (Lipitor) 10 mg PO DAILY [facility] Last Admin: 08/20/17 09:58 Dose: 10 mg Cholecalciferol (Vitamin D) 5,000 intlu PO Q48H [facility] Last Admin: 08/20/17 03:48 Dose: 5,000 intlu Cyclobenzaprine HCl (Flexeril) 10 mg PO TID [facility] Last Admin: 08/20/17 08:31 Dose: 10 mg Diazepam (Valium) 2 mg IVP ONCE ONE Stop: 08/20/17 10:24 Dicyclomine HCl (Bentyl) 20 mg PO TID PRN PRN Reason: abdominal pain/cramping Docusate Sodium (Colace) 100 mg PO BID [facility] Folic Acid (Folic Acid) 1 mg PO DAILY [facility] Last Admin: 08/20/17 08:31 Dose: 1 mg Heparin Sodium (Porcine) (Heparin) 5,000 units SC Q8 [facility] PRN Reason: Protocol Last Admin: 08/20/17 09:57 Dose: 5,000 units Sodium Chloride (Sodium Chloride 0.9%) 1,000 mls @ 44 mls/hr IV .[id number] [facility] Stop: 08/21/17 03:08 Last Admin: 08/20/17 03:47 Dose: 44 mls/hr Lidocaine (Lidoderm) 1 ea TD DAILY [facility] Metoprolol Tartrate (Lopressor) 50 mg PO Q12 [facility] Last Admin: 08/20/17 08:31 Dose: 50 mg Morphine Sulfate (Morphine) 2 mg IVP Q4 PRN PRN Reason: Pain, severe (8-10) Oxycodone/Acetaminophen (Percocet 5/325 Mg Tab) 1 tab PO Q6 PRN PRN Reason: Pain, moderate (4-7) Stop: 08/23/17 02:55 Last Admin: 08/20/17 09:55 Dose: 1 tab Sevelamer HCl (Renagel) 800 mg PO TID [facility] Last Admin: 08/20/17 08:32 Dose: 800 mg Sulfasalazine (Azulfidine) 1,000 mg PO Q6H [facility] PRN Reason: Protocol Last Admin: 08/20/17 08:31 Dose: 1,000 mg Temazepam (Restoril) 30 mg PO HS [facility] Trazodone HCl (Desyrel) 50 mg PO HS [facility] Results - Vital Signs Recent Vital Signs: Last Vital Signs Temp 97.9 F 08/20/17 08:02 Pulse 74 08/20/17 08:31 Resp 19 08/20/17 08:02 BP 123/67 08/20/17 09:00 Pulse Ox 97 08/20/17 08:02 - Labs Result Diagrams: 08/20/17 07:12 08/20/17 00:10 Labs: Laboratory Results - last 24 hr 08/20/17 08/20/17 08/20/17 00:10 00:10 00:10 WBC 8.6 RBC 3.73 L Hgb 11.9 L D Hct 34.6 L MCV 92.6 D MCH 32.0 H MCHC 34.6 RDW 12.7 Plt Count 223 MPV 7.2 Neut % (Auto) 62.0 Lymph % (Auto) 20.7 [place] % (Auto) 14.4 H Eos % (Auto) 2.6 Baso % (Auto) 0.3 Neut # (Auto) 5.4 Lymph # (Auto) 1.8 [place] # (Auto) 1.2 H Eos # (Auto) 0.2 Baso # (Auto) 0.0 Sodium 132 Potassium 5.1 H Chloride 96 L Carbon Dioxide 20 L Anion Gap 21 H BUN 63 H Creatinine 1.9 H Est GFR ( Amer) 41 Est GFR (Non-Af Amer) 34 Random Glucose 104 Calcium 9.4 Total Bilirubin 0.5 AST 29 ALT 36 Alkaline Phosphatase 97 Total Protein 7.7 Albumin 4.4 Globulin 3.4 Albumin/Globulin Ratio 1.3 Vitamin B12 Urine Color Straw Urine Clarity Slighty-cloudy Urine pH 7.0 Ur Specific [place] 1.008 Urine Protein 100 Urine Glucose (UA) Neg Urine Ketones Negative Urine Blood Small Urine Nitrate Negative Urine Bilirubin Negative Urine Urobilinogen 0.2-1.0 Ur Leukocyte Esterase Large Urine RBC (Auto) 4 H Urine Microscopic WBC 18 H Ur Squamous Epith Cells < 1 Urine Bacteria Mod H 08/20/17 08/20/17 07:12 07:12 WBC 8.6 RBC 3.65 L Hgb 11.9 L Hct 33.8 L MCV 92.4 MCH 32.6 H MCHC 35.3 RDW 12.7 Plt Count 208 MPV 7.1 L Neut % (Auto) 57.6 Lymph % (Auto) 25.7 [place] % (Auto) 13.8 H Eos % (Auto) 2.5 Baso % (Auto) 0.4 Neut # (Auto) 4.9 Lymph # (Auto) 2.2 [place] # (Auto) 1.2 H Eos # (Auto) 0.2 Baso # (Auto) 0.0 Sodium Potassium Chloride Carbon Dioxide Anion Gap BUN Creatinine Est GFR ( Amer) Est GFR (Non-Af Amer) Random Glucose Calcium Total Bilirubin AST ALT Alkaline Phosphatase Total Protein Albumin Globulin Albumin/Globulin Ratio Vitamin B12 719 Urine Color Urine Clarity Urine pH Ur Specific [place] Urine Protein Urine Glucose (UA) Urine Ketones Urine Blood Urine Nitrate Urine Bilirubin Urine Urobilinogen Ur Leukocyte Esterase Urine RBC (Auto) Urine Microscopic WBC Ur Squamous Epith Cells Urine Bacteria
[2017-08-20] MEDS ORDERED: Dexamethasone 4 mg/1 ml IV ONE (11:15)
[2017-08-20] MEDS: Pantoprazole 40 mg EC Tab PO SCH (11:39)
[2017-08-20] MEDS ORDERED: Gadodiamide 287 MG/ML VIAL (15ML) IV ONE (12:19)
--- NOTE | 2017-08-20 12:31 | CP.PCM.CON ---
History of Present Illness - History of Present Illness History of Present Illness: SPINE CONSULT Pt seen and examined. Full consult dictated. MRI pending, but if it confirms CT and pt has large extruded HNP would best be treated with surgical intervention for removal of herniation. Pt can't ambulate secondary to the pain and obviously there would be signif issues with prolonged bedrest with his medical condition. Past Patient History - Infectious Disease Hx of Infectious Diseases: None - Tetanus Immunizations Tetanus Immunization: Unknown - Past Medical History & Family History Past Medical History?: Yes - Past Social History Smoking Status: Former Smoker Chewing Tobacco Use: No Cigar Use: No Alcohol: None Drugs: Denies Home Situation {Lives}: With Family - CARDIAC Hx Atrial Fibrillation: Yes (paroxysmal) Hx Congestive Heart Failure: No Hx Hypercholesterolemia: No Hx Hypertension: Yes - PULMONARY Hx Chronic Obstructive Pulmonary Disease (COPD): No - NEUROLOGICAL HX Cerebrovascular Accident: No - HEENT Hx HEENT Problems: No - RENAL Hx Chronic Kidney Disease: Yes Other/Comment: bvladder cancer with Urostomy - ENDOCRINE/METABOLIC Hx Endocrine Disorders: No Hx Hypothyroidism: No - HEMATOLOGICAL/ONCOLOGICAL Hx Anemia: Yes Hx Human Immunodeficiency Virus (HIV): No - INTEGUMENTARY Hx Dermatological Problems: No - MUSCULOSKELETAL/RHEUMATOLOGICAL Hx Arthritis: Yes Hx Rheumatoid Arthritis: No - GASTROINTESTINAL Hx Gastrointestinal Disorders: No - GENITOURINARY/GYNECOLOGICAL Hx Genitourinary Disorders: Yes Hx Bladder Cancer: Yes (s/p bladder resction and urostomy bag) - PSYCHIATRIC Hx Depression: Yes - SURGICAL HISTORY Hx Coronary Artery Bypass Graft: Yes Other/Comment: lobectomy; Urostomy - ANESTHESIA Hx Anesthesia: Yes Hx Anesthesia Reactions: No Hx Malignant Hyperthermia: No Meds Allergies/Adverse Reactions: Allergies Allergy/AdvReac Type Severity Reaction Status Date / Time ciprofloxacin [From Cipro] Allergy ITCHING Verified 11/12/16 12:46 - Medications Medications: Current Medications Acetaminophen (Tylenol 325mg Tab) 650 mg PO Q6 PRN PRN Reason: Fever >100.4 F Acetaminophen (Tylenol 325mg Tab) 650 mg PO Q6 PRN PRN Reason: Pain, Mild (1-3) Atorvastatin Calcium (Lipitor) 10 mg PO DAILY [facility] Last Admin: 08/20/17 09:58 Dose: 10 mg Cholecalciferol (Vitamin D) 5,000 intlu PO Q48H [facility] Last Admin: 08/20/17 03:48 Dose: 5,000 intlu Cyclobenzaprine HCl (Flexeril) 10 mg PO TID [facility] Last Admin: 08/20/17 08:31 Dose: 10 mg Dexamethasone (Decadron Inj) 4 mg IV Q8 [facility] Diazepam (Valium) 2 mg PO TID [facility] Dicyclomine HCl (Bentyl) 20 mg PO TID PRN PRN Reason: abdominal pain/cramping Docusate Sodium (Colace) 100 mg PO BID [facility] Last Admin: 08/20/17 11:38 Dose: 100 mg Folic Acid (Folic Acid) 1 mg PO DAILY [facility] Last Admin: 08/20/17 08:31 Dose: 1 mg Heparin Sodium (Porcine) (Heparin) 5,000 units SC Q8 [facility] PRN Reason: Protocol Last Admin: 08/20/17 09:57 Dose: 5,000 units Sodium Chloride (Sodium Chloride 0.9%) 1,000 mls @ 44 mls/hr IV .[id number] [facility] Stop: 08/21/17 03:08 Last Admin: 08/20/17 03:47 Dose: 44 mls/hr Lidocaine (Lidoderm) 1 ea TD DAILY [facility] Metoprolol Tartrate (Lopressor) 50 mg PO Q12 [facility] Last Admin: 08/20/17 08:31 Dose: 50 mg Morphine Sulfate (Morphine) 2 mg IVP Q4 PRN PRN Reason: Pain, severe (8-10) Oxycodone/Acetaminophen (Percocet 5/325 Mg Tab) 1 tab PO Q6 PRN PRN Reason: Pain, moderate (4-7) Stop: 08/23/17 02:55 Last Admin: 08/20/17 09:55 Dose: 1 tab Pantoprazole Sodium (Protonix Ec Tab) 40 mg PO DAILY [facility] Last Admin: 08/20/17 11:39 Dose: 40 mg Sevelamer HCl (Renagel) 800 mg PO TID [facility] Last Admin: 08/20/17 08:32 Dose: 800 mg Sulfasalazine (Azulfidine) 1,000 mg PO Q6H [facility] PRN Reason: Protocol Last Admin: 08/20/17 08:31 Dose: 1,000 mg Trazodone HCl (Desyrel) 50 mg PO HS [facility] Results - Vital Signs Recent Vital Signs: Last Vital Signs Temp 97.9 F 08/20/17 08:02 Pulse 74 08/20/17 12:05 Resp 18 08/20/17 12:05 BP 123/67 08/20/17 12:05 Pulse Ox 97 08/20/17 12:05 - Labs Result Diagrams: 08/20/17 07:12 08/20/17 00:10 Labs: Laboratory Results - last 24 hr 08/20/17 08/20/17 08/20/17 00:10 00:10 00:10 WBC 8.6 RBC 3.73 L Hgb 11.9 L D Hct 34.6 L MCV 92.6 D MCH 32.0 H MCHC 34.6 RDW 12.7 Plt Count 223 MPV 7.2 Neut % (Auto) 62.0 Lymph % (Auto) 20.7 [place] % (Auto) 14.4 H Eos % (Auto) 2.6 Baso % (Auto) 0.3 Neut # (Auto) 5.4 Lymph # (Auto) 1.8 [place] # (Auto) 1.2 H Eos # (Auto) 0.2 Baso # (Auto) 0.0 Sodium 132 Potassium 5.1 H Chloride 96 L Carbon Dioxide 20 L Anion Gap 21 H BUN 63 H Creatinine 1.9 H Est GFR ( Amer) 41 Est GFR (Non-Af Amer) 34 Random Glucose 104 Calcium 9.4 Total Bilirubin 0.5 AST 29 ALT 36 Alkaline Phosphatase 97 Total Protein 7.7 Albumin 4.4 Globulin 3.4 Albumin/Globulin Ratio 1.3 Vitamin B12 Urine Color Straw Urine Clarity Slighty-cloudy Urine pH 7.0 Ur Specific [place] 1.008 Urine Protein 100 Urine Glucose (UA) Neg Urine Ketones Negative Urine Blood Small Urine Nitrate Negative Urine Bilirubin Negative Urine Urobilinogen 0.2-1.0 Ur Leukocyte Esterase Large Urine RBC (Auto) 4 H Urine Microscopic WBC 18 H Ur Squamous Epith Cells < 1 Urine Bacteria Mod H 08/20/17 08/20/17 07:12 07:12 WBC 8.6 RBC 3.65 L Hgb 11.9 L Hct 33.8 L MCV 92.4 MCH 32.6 H MCHC 35.3 RDW 12.7 Plt Count 208 MPV 7.1 L Neut % (Auto) 57.6 Lymph % (Auto) 25.7 [place] % (Auto) 13.8 H Eos % (Auto) 2.5 Baso % (Auto) 0.4 Neut # (Auto) 4.9 Lymph # (Auto) 2.2 [place] # (Auto) 1.2 H Eos # (Auto) 0.2 Baso # (Auto) 0.0 Sodium Potassium Chloride Carbon Dioxide Anion Gap BUN Creatinine Est GFR ( Amer) Est GFR (Non-Af Amer) Random Glucose Calcium Total Bilirubin AST ALT Alkaline Phosphatase Total Protein Albumin Globulin Albumin/Globulin Ratio Vitamin B12 719 Urine Color Urine Clarity Urine pH Ur Specific [place] Urine Protein Urine Glucose (UA) Urine Ketones Urine Blood Urine Nitrate Urine Bilirubin Urine Urobilinogen Ur Leukocyte Esterase Urine RBC (Auto) Urine Microscopic WBC Ur Squamous Epith Cells Urine Bacteria
[2017-08-20] MEDS: Morphine 4 MG/ML VIAL IVP PRN ×3 (13:06→23:18)
[2017-08-20] MEDS: Lidocaine 5% Patch TD SCH (13:09)
--- NOTE | 2017-08-20 14:41 | CON ---
DATE: 08/20/2017 REASON FOR CONSULTATION: Low back and leg pain. HISTORY OF PRESENT ILLNESS: The patient is an 81-year-old gentleman who states he was in his usual state of health until 2 weeks when, after vacuuming, he knows the onset of low back pain. It is gotten progressively worse over that time. He does not recall any specific incident happening while he was vacuuming and he has done it before, but this time again the back started hurting him and became progressively worse with radiation to both legs, he believes the right more than the left. He denies any loss bowel control. He is status post bladder resection for cancer. He cannot get up and cannot walk because of the pain. He feels a little better if he just recumbent and not moving. Evidently, he has been seen by [facility] yesterday or the day before and was treated and discharged at that time. He does report that prior to this he had some difficulty ambulating in that, after he walk the distance, his legs would start to bother him and get a little numb and have to get off his speed and rest a bit. He noticed that if he walks and lean again something such as shopping cart that was better. He does have a past history of surgery for herniated disc 10 years ago and at that time he states the right leg was the one that bothered. PAST MEDICAL HISTORY: Significant for coronary artery disease with stent placement. He has a history of hypertension, CHF, systolic dysfunction, paroxysmal atrial fibrillation, anemia, arthritis, history of bladder cancer and lung cancer. MEDICATIONS: His medications are listed on the chart. ALLERGIES: HE IS ALLERGIC TO CIPRO AND THAT IT CAUSES ITCHING. PAST SURGICAL HISTORY: Significant for removal of the bladder with placement of urostomy. He has had the back surgery as mentioned above. He has had lung resection. Coronary artery bypass graft with stents as we mentioned. SOCIAL HISTORY: He was a former smoker. Does not take any alcohol. PHYSICAL EXAMINATION EXTREMITIES: On examination, he just is really complaining of a lot of pain going from the lower back into the legs. Straight leg raising is allowed on the right side without any real complaints up to about 70 degrees or so, but on the left side at about 30 degrees or so he started complaining of increasing back pain. He moves both lower extremities actively. NEUROLOGIC: He states his sensation is intact to light touch bilaterally. He appears to have good motor strength. Distal pulses are just fair. No clonus or Babinski's noted. DIAGNOSTIC DATA: He had a CAT scan done yesterday presumably in the Emergency Room of his lumbar spine. It shows stenosis from facet hypertrophy and thickening of ligamentum at L2-L3 and L4-L5 levels, but at L3-L4, there appears to be significant stenosis from looks like a extruded herniated disk that is tracking up behind the body of L3. There may be evidence of previous hemilaminotomy or leg hemilaminectomy on the right side at L5-S1. The degenerative changes with some disk space narrowing at L4-L5 and L5-S1 as well. 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 He is scheduled to get an magnetic resonance imaging, which I think would help to tell us what exactly is the pathology here. If it confirmed that he has a large extruded disc then I would strongly recommend and he undergo surgical decompression and removal of the disk. He is stating he does want any surgery because of his age, but he was fully ambulatory before this happened and certainly it is most unlikely it will get better without operative intervention if it is indeed a large extruded disk as it appears on the CAT scan. Also obviously at his age, thee is significant risks involved with prolonged bed rest, which is already going on as he is unable to get out of the bed and walk. We will get the MRI done and review that and then revisit Mr. Horner and discussed this further. Obviously, all this would be pending the fact that he would be cleared by Medicine and Cardiology. Thank you for allowing me to participate in the care of your patient. Ernesto Bucknre MD [facility]
[2017-08-20] MEDS: Dexamethasone 4 mg/1 ml IV SCH (16:38)
[2017-08-20] MEDS ORDERED: Dexamethasone 4 MG in Sodium Chloride 0.9% 50 ML IVPB SCH (17:00)
--- NOTE | 2017-08-20 19:08 | CARD ---
APPROVED REPORT EKG Measurement Heart [id number] <Conclusion> Sinus rhythm with 1st degree AV block Incomplete right bundle branch block Possible Anterior infarct, age undetermined Abnormal ECG
[2017-08-21] MEDS: Dexamethasone 4 mg/1 ml IV SCH ×3 (00:44→17:29)
[2017-08-21] MEDS: Sodium Chloride 0.9% 1,000 ML IV SCH (03:46)
[2017-08-21 07:41] LABS: CALCIUM 9.8 mg/dL (8.4-10.2)
[2017-08-21] MEDS ORDERED: Sod Polystyrene Sulf 15 gm/60 ml Susp PO ONE (07:51)
[2017-08-21] MEDS: Lidocaine 5% Patch TD SCH (10:05)
[2017-08-21] MEDS: Pantoprazole 40 mg EC Tab PO SCH (10:05)
--- NOTE | 2017-08-21 10:18 | CP.PCM.PN ---
Subjective - Date & Time of Evaluation Date of Evaluation: 08/21/17 Time of Evaluation: 10:00 - Subjective Subjective: Pt's low back pain is better this morning, he was able to sleep last night no LE weakness no sensory deficit no saddle anesthesia denies CP no SOB no abd pain no fever + constipation Objective - Vital Signs/Intake and Output Vital Signs (last 24 hours): Temp Pulse Resp BP Pulse Ox 98.0 F 85 20 127/60 97 08/21/17 10:00 08/21/17 10:00 08/21/17 10:00 08/21/17 10:00 08/21/17 10:00 - Medications Medications: Current Medications Acetaminophen (Tylenol 325mg Tab) 650 mg PO Q6 PRN PRN Reason: Fever >100.4 F Acetaminophen (Tylenol 325mg Tab) 650 mg PO Q6 PRN PRN Reason: Pain, Mild (1-3) Atorvastatin Calcium (Lipitor) 10 mg PO DAILY [facility] Last Admin: 08/20/17 09:58 Dose: 10 mg Cholecalciferol (Vitamin D) 5,000 intlu PO Q48H [facility] Last Admin: 08/20/17 03:48 Dose: 5,000 intlu Cyclobenzaprine HCl (Flexeril) 10 mg PO TID [facility] Last Admin: 08/20/17 16:46 Dose: 10 mg Dexamethasone (Decadron Inj) 4 mg IV Q8 [facility] Last Admin: 08/21/17 00:44 Dose: 4 mg Diazepam (Valium) 2 mg PO TID [facility] Last Admin: 08/20/17 16:37 Dose: 2 mg Docusate Sodium (Colace) 100 mg PO BID [facility] Last Admin: 08/20/17 16:45 Dose: 100 mg Folic Acid (Folic Acid) 1 mg PO DAILY [facility] Last Admin: 08/20/17 08:31 Dose: 1 mg Heparin Sodium (Porcine) (Heparin) 5,000 units SC Q8 [facility] PRN Reason: Protocol Last Admin: 08/21/17 00:44 Dose: 5,000 units Lidocaine (Lidoderm) 1 ea TD DAILY [facility] Last Admin: 08/20/17 13:09 Dose: 1 ea Metoprolol Tartrate (Lopressor) 50 mg PO Q12 [facility] Last Admin: 08/20/17 21:09 Dose: 50 mg Morphine Sulfate (Morphine) 2 mg IVP Q4 PRN PRN Reason: Pain, severe (8-10) Last Admin: 08/20/17 23:18 Dose: 2 mg Oxycodone/Acetaminophen (Percocet 5/325 Mg Tab) 1 tab PO Q6 PRN PRN Reason: Pain, moderate (4-7) Stop: 08/23/17 02:55 Last Admin: 08/20/17 09:55 Dose: 1 tab Pantoprazole Sodium (Protonix Ec Tab) 40 mg PO DAILY [facility] Last Admin: 08/20/17 11:39 Dose: 40 mg Sevelamer HCl (Renagel) 800 mg PO TID [facility] Last Admin: 08/20/17 16:49 Dose: 800 mg Sulfasalazine (Azulfidine) 1,000 mg PO Q6H [facility] PRN Reason: Protocol Last Admin: 08/21/17 03:47 Dose: 1,000 mg Trazodone HCl (Desyrel) 50 mg PO HS [facility] Last Admin: 08/20/17 21:10 Dose: 50 mg - Labs Labs: 08/20/17 07:12 08/21/17 05:20 - Constitutional Appears: No Acute Distress, Chronically Ill - Head Exam Head Exam: NORMAL INSPECTION, NORMOCEPHALIC - Eye Exam Eye Exam: EOMI, Normal appearance Pupil Exam: NORMAL ACCOMODATION - ENT Exam ENT Exam: Mucous Membranes Moist, Normal External Ear Exam - Neck Exam Neck Exam: Full ROM. absent: Meningismus - Respiratory Exam Respiratory Exam: NORMAL BREATHING PATTERN. absent: Rales, Respiratory Distress - Cardiovascular Exam Cardiovascular Exam: REGULAR RHYTHM, +S1, +S2 - GI/Abdominal Exam GI & Abdominal Exam: Soft, Normal Bowel Sounds. absent: Tenderness Additional comments: + Urostomy - Extremities Exam Extremities Exam: Full ROM, Normal Capillary Refill. absent: Calf Tenderness - Back Exam Back Exam: muscle spasm. absent: CVA tenderness (L), CVA tenderness (R), vertebral tenderness - Neurological Exam Neurological Exam: Alert, Awake, CN II-XII Intact, Oriented x3 Neuro motor strength exam: Left Upper Extremity: 5, Right Upper Extremity: 5, Left Lower Extremity: 5, Right Lower Extremity: 5 - Psychiatric Exam Psychiatric exam: Anxious, Normal Mood - Skin Skin Exam: Dry, Normal Color, Warm Assessment and Plan - Assessment and Plan (Free Text) Assessment: 81 y/o gent with hx of CAD, HTN, CKD, Hx of Bladder CA s/p Resection , Ileal conduit , Hx of Lumbar Spine Sx was brought in bec of severe low back pain. Pt has been unable to ambulate bec of the severity of pain. He denies any weakness nor loss of sensation . CT of L Spine : No acute fracture or dislocation. Congenitally small spinal canal. L3-4 moderate to severe diffuse disc bulge and large central disc extrusion with cephalad extension of the herniated disc. Severe spinal canal stenosis and compression of the thecal sac. Further evaluation with MRI of the lumbar spine could be obtained. Disc bulges at multiple levels as described. 1. Severe Intractable Low back pain with lumbar disc herniation , L3-4 severe disc bulge and large central disc extrusion. - Pain mgt - started pt on Morphine IV for sevre pain, and Percocet for mod pain - started Decadron IV - started Valium -cont Flexeril - Neurosurgery consult : Dr Buckner - rec MRI and poss Neurosurgery - Hold ASA/ Plavix for now in case pt will underfo surgery 2. Hyperkalemia likely sec to CKD - Hold Lisinopril - Follow electrolytes - give Kayexalate 3. HTN - Metoprolol increased to 50mg Q12, d/c Lisinopril - monitor Blood pressure 4. Acute on chronic kidney disease, stage III - IV fluids NS at 44mls/Hr - cont Renagel 5. CAD , history of CABG - Consult Dr Samano graphic coordinator - Hold ASA/ Plavix for now incase pt need back surg 6. Mild Anemia sec to Chronic Renal Dis 7. Hx of Bladder CA s/p resection , ? UTI -pt urinates thru Urostomy - Urinalysis shows some Pyuria, Leuko , ? UTI vs contamination - pt is afebrile, no leukocytosis - Uirne c/s - empirically start IV Ceftriaxone and will d/c if no infection #. DVT Prophylaxis with SCD - Heparin Sub Q as this could be stopped shortly before surgery #. Code Status: Full Surrogate Decision maker : spouse Kay
[2017-08-21] MEDS: Oxycodone/Acetaminophen 5/325 mg Tab PO PRN (21:21)
[2017-08-22] MEDS: Dexamethasone 4 mg/1 ml IV SCH ×2 (01:21→12:20)
[2017-08-22] MEDS: Cholecalciferol 1,000 INTLU TAB PO SCH (02:24)
[2017-08-22 08:38] LABS: CALCIUM 9.6 mg/dL (8.4-10.2)
[2017-08-22 09:03] LABS: INR 1.3 (0.9-1.2); PARTIAL THROMBOPLASTIN TIME 34.1 Seconds (25.6-37.1); PROTHROMBIN TIME 13.9 Seconds (9.8-13.1)
--- NOTE | 2017-08-22 09:11 | CP.PCM.PN ---
Subjective - Date & Time of Evaluation Date of Evaluation: 08/22/17 Time of Evaluation: 08:30 - Subjective Subjective: Pt's back pain is better with opiates and steroids however very confused due to the Narcotics denies CP no SOB no abd pain No fever no abd pain Had BM yesterday Objective - Vital Signs/Intake and Output Vital Signs (last 24 hours): Temp Pulse Resp BP Pulse Ox 98.3 F 79 20 153/70 H 97 08/22/17 08:16 08/22/17 08:16 08/22/17 08:16 08/22/17 08:16 08/22/17 08:16 - Medications Medications: Current Medications Acetaminophen (Tylenol 325mg Tab) 650 mg PO Q6 PRN PRN Reason: Fever >100.4 F Acetaminophen (Tylenol 325mg Tab) 650 mg PO Q6 PRN PRN Reason: Pain, Mild (1-3) Atorvastatin Calcium (Lipitor) 10 mg PO DAILY [facility] Last Admin: 08/21/17 10:05 Dose: 10 mg Cholecalciferol (Vitamin D) 5,000 intlu PO Q48H [facility] Last Admin: 08/22/17 02:24 Dose: Not Given Cyclobenzaprine HCl (Flexeril) 10 mg PO TID [facility] Last Admin: 08/21/17 17:56 Dose: 10 mg Dexamethasone (Decadron Inj) 2 mg IV Q8 [facility] Last Admin: 08/22/17 01:21 Dose: 2 mg Diazepam (Valium) 2 mg PO BID [facility] Docusate Sodium (Colace) 100 mg PO BID [facility] Last Admin: 08/21/17 17:29 Dose: Not Given Folic Acid (Folic Acid) 1 mg PO DAILY [facility] Last Admin: 08/21/17 10:05 Dose: 1 mg Heparin Sodium (Porcine) (Heparin) 5,000 units SC Q8 [facility] PRN Reason: Protocol Last Admin: 08/22/17 01:00 Dose: 5,000 units Ceftriaxone Sodium 1 gm/ (Sodium Chloride) 100 mls @ 100 mls/hr IVPB DAILY [facility] PRN Reason: Protocol Lactulose (Enulose) 20 gm PO DAILY PRN PRN Reason: Constipation Lidocaine (Lidoderm) 1 ea TD DAILY [facility] Last Admin: 08/21/17 10:05 Dose: 1 ea Metoprolol Tartrate (Lopressor) 50 mg PO Q12 [facility] Last Admin: 08/21/17 21:19 Dose: 50 mg Morphine Sulfate (Morphine) 2 mg IVP Q4 PRN PRN Reason: Pain, severe (8-10) Last Admin: 08/20/17 23:18 Dose: 2 mg Oxycodone/Acetaminophen (Percocet 5/325 Mg Tab) 1 tab PO Q6 PRN PRN Reason: Pain, moderate (4-7) Stop: 08/23/17 02:55 Last Admin: 08/21/17 21:21 Dose: 1 tab Pantoprazole Sodium (Protonix Ec Tab) 40 mg PO DAILY [facility] Last Admin: 08/21/17 10:05 Dose: 40 mg Sevelamer HCl (Renagel) 800 mg PO TID [facility] Last Admin: 08/21/17 17:30 Dose: 800 mg Sulfasalazine (Azulfidine) 1,000 mg PO Q6H [facility] PRN Reason: Protocol Last Admin: 08/22/17 03:25 Dose: Not Given Trazodone HCl (Desyrel) 50 mg PO HS [facility] Last Admin: 08/21/17 21:21 Dose: 50 mg - Labs Labs: 08/20/17 07:12 08/22/17 07:50 PT 13.9 Seconds (9.8-13.1) H 08/22/17 07:50 INR 1.3 (0.9-1.2) H 08/22/17 07:50 APTT 34.1 Seconds (25.6-37.1) 08/22/17 07:50 - Constitutional Appears: No Acute Distress, Chronically Ill - Head Exam Head Exam: NORMAL INSPECTION, NORMOCEPHALIC - Eye Exam Eye Exam: EOMI, Normal appearance Pupil Exam: NORMAL ACCOMMODATION - ENT Exam ENT Exam: Mucous Membranes Moist, Normal External Ear Exam - Neck Exam Neck Exam: Full ROM. absent: Meningismus - Respiratory Exam Respiratory Exam: NORMAL BREATHING PATTERN. absent: Rales, Respiratory Distress - Cardiovascular Exam Cardiovascular Exam: REGULAR RHYTHM, +S1, +S2 - GI/Abdominal Exam GI & Abdominal Exam: Soft, Normal Bowel Sounds. absent: Tenderness Additional comments: + Urostomy - Extremities Exam Extremities Exam: Full ROM, Normal Capillary Refill. absent: Calf Tenderness - Back Exam Back Exam: muscle spasm. absent: CVA tenderness (L), CVA tenderness (R), vertebral tenderness - Neurological Exam Neurological Exam: Alert, Awake, CN II-XII Intact, Oriented to person Neuro motor strength exam: Left Upper Extremity: 5, Right Upper Extremity: 5, Left Lower Extremity: 5, Right Lower Extremity: 5 - Psychiatric Exam Psychiatric exam: Anxious, Normal Mood - Skin Skin Exam: Dry, Normal Color, Warm Assessment and Plan - Assessment and Plan (Free Text) Assessment: 81 y/o gent with hx of CAD, HTN, CKD, Hx of Bladder CA s/p Resection and Ileal conduit , Hx of Lumbar Spine Sx was brought in bec of severe low back pain. Pt has been unable to ambulate bec of the severity of pain. He denies any weakness nor loss of sensation . CT of L Spine : No acute fracture or dislocation. Congenitally small spinal canal. L3-4 moderate to severe diffuse disc bulge and large central disc extrusion with cephalad extension of the herniated disc. Severe spinal canal stenosis and compression of the thecal sac. Disc bulges at multiple levels as described. MRI of L spine: Mild congenital canal stenosis exacerbated by multilevel degenerative spondylosis. Large central and bilateral disc herniation L 4 L5 level with superior subligamentous extension of disc material over short distance dorsal to the inferior half of the L4 segment. Changes result in significant canal stenosis and compression of the thecal sac as well as intrathecal nerve roots of the cauda equina 1. Severe Intractable Low back pain with lumbar disc herniation , L4-L5 severe disc bulge and large central disc extrusion. - Pain mgt - Morphine IV for severe pain, and Percocet for mod pain -change Decadron to PO - decrease Valium to daily -cont Flexeril - Neurosurgery consulted : discussed case with Dr Buckner - Plan for surgery tomorrow -d/c Heparin -NPO from [place] -Pre op Cardio eval - discussed case with Dr Sienna Samano -Pt and family understands risks for surgery given his multiple medical comorbities however elected to proceed with the surgery as pt was ambulatory previously and has not been able to ambulate due to the severe pain. 2. Hyperkalemia likely sec to CKD, resolved - Hold Lisinopril -pt was given Kayexalate 3. HTN - Metoprolol increased to 50mg Q12, d/c Lisinopril - monitor Blood pressure 4. Acute on chronic kidney disease, stage III - IV fluids NS - cont Renagel 5. CAD , history of CABG - Consult Dr Samano firewall administrator -cont statin and BB - off ASA /Plavix 6. Mild Anemia sec to Chronic Renal Dis 7. Hx of Bladder CA s/p resection ? UTI vs -pt urinates thru Urostomy - Urinalysis shows some Pyuria, Leuko , ? UTI vs contamination - pt is afebrile, no leukocytosis - Urine c/s - empirically started IV Ceftriaxone and will d/c if no infection 8. Delirium sec to Opiates pt has some baseline mild dementia however since he was admitted he has episodes of confusion cornelius at night likely due to ing and opiates. decrease opiate dose #. DVT Prophylaxis with SCD - d/c Heparin SQ- pt is for suregry in am
[2017-08-22] MEDS ORDERED: Propofol 10 mg/ml Inj (20 ML) ONE (09:30)
[2017-08-22] MEDS ORDERED: Midazolam 2 MG/2 ML VIAL ONE (09:30)
[2017-08-22] MEDS ORDERED: Lidocaine 1% Inj (20ml) ONE (09:31)
--- NOTE | 2017-08-22 09:50 | CP.PCM.PN ---
Subjective - Date & Time of Evaluation Date of Evaluation: 08/22/17 Time of Evaluation: 08:30 - Subjective Subjective: This 81-year-old man came to the emergency room with unbearable lower back pain for which she had visited the emergency room at a nearby hospital the day before. He was examined and treated and released on the same day but came back to this emergency room now. The patient has a long medical history which includes severe coronary artery disease requiring coronary bypass graft surgery more than 40 years back as well as severe COPD as a result of chronic cigarette use and diffuse vascular disease. 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 The patient also has depression. He has multiple GI issues, including ulcerative colitis for which he was hospitalized at this institution a few months back. The patient has been extremely frail. Physical examination shows an elderly man who appears confused about his surroundings and circumstances surrounding his hospitalization. He recognizes me readily but does not answer simple questions clearly. He has received multiple an analgesics including narcotic analgesics and Ativan for agitation. His respiratory rate was 16 breaths per minute and his heart rate was 76 bpm and regular. His blood pressure was 136/74 mmHg. His jugular venous pressure was not elevated and there was no edema over his lower extremity. The pedal pulses were extremely feeble. There were no carotid bruits. A scar of sternotomy was evident on his chest. His apex was vaguely felt in the 6th space. the first and second heart sound were normal. There was a brief apical systolic murmur. There were no rales. The expiration is slightly prolonged. Abdomen was soft liver and spleen are not palpable. A functioning urostomy was identified. 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 This EKG pattern was seen on earlier EKGs going as far back as 2014. An echocardiogram from couple of years back had shown significant left ventricular wall motion abnormalities with a depressed ejection fraction in the range of 35%. There was mildly elevated pulmonary artery systolic pressure. His lab data showed a depressed GFR due to chronic kidney disease stage III. CT scan of the spine shows a severe bulge of L3-L4 disc resulting in severe spinal stenosis with narrowing of neural foramina. Impression: Severe bulge of intervertebral disc at L3-L4 with severe spinal stenosis. Coronary artery disease with status post coronary bypass graft surgery. Moderate left ventricular systolic dysfunction with stage III CKD, diffuse vascular disease and carotid artery disease with status post radical bladder resection for CA of the bladder, ulcerative colitis and severe COPD. Patient's disorientation appears to be secondary to excruciating constant pain as well as opiates and sedation for restlessness. Patient has agreed to have his MRI done. I have alerted the family to the fact that any surgical intervention will carry high risk given the severity and multiplicity of his medical problems as well as his age. They have indicated that they are interested in quality more than quantity of life. Objective - Vital Signs/Intake and Output Vital Signs (last 24 hours): Temp Pulse Resp BP Pulse Ox 98.3 F 79 20 153/70 H 97 08/22/17 08:16 08/22/17 08:16 08/22/17 08:16 08/22/17 08:16 08/22/17 08:16 - Medications Medications: Current Medications Acetaminophen (Tylenol 325mg Tab) 650 mg PO Q6 PRN PRN Reason: Fever >100.4 F Acetaminophen (Tylenol 325mg Tab) 650 mg PO Q6 PRN PRN Reason: Pain, Mild (1-3) Atorvastatin Calcium (Lipitor) 10 mg PO DAILY [facility] Last Admin: 08/21/17 10:05 Dose: 10 mg Cholecalciferol (Vitamin D) 5,000 intlu PO Q48H [facility] Last Admin: 08/22/17 02:24 Dose: Not Given Cyclobenzaprine HCl (Flexeril) 10 mg PO TID [facility] Last Admin: 08/21/17 17:56 Dose: 10 mg Dexamethasone (Decadron Inj) 2 mg IV Q8 [facility] Last Admin: 08/22/17 01:21 Dose: 2 mg Diazepam (Valium) 2 mg PO BID [facility] Docusate Sodium (Colace) 100 mg PO BID [facility] Last Admin: 08/21/17 17:29 Dose: Not Given Folic Acid (Folic Acid) 1 mg PO DAILY [facility] Last Admin: 08/21/17 10:05 Dose: 1 mg Heparin Sodium (Porcine) (Heparin) 5,000 units SC Q8 [facility] PRN Reason: Protocol Last Admin: 08/22/17 01:00 Dose: 5,000 units Ceftriaxone Sodium 1 gm/ (Sodium Chloride) 100 mls @ 100 mls/hr IVPB DAILY [facility] PRN Reason: Protocol Lactulose (Enulose) 20 gm PO DAILY [facility] PRN Reason: Constipation Lidocaine (Lidoderm) 1 ea TD DAILY [facility] Last Admin: 08/21/17 10:05 Dose: 1 ea Metoprolol Tartrate (Lopressor) 50 mg PO Q12 [facility] Last Admin: 08/21/17 21:19 Dose: 50 mg Morphine Sulfate (Morphine) 2 mg IVP Q4 PRN PRN Reason: Pain, severe (8-10) Last Admin: 08/20/17 23:18 Dose: 2 mg Oxycodone/Acetaminophen (Percocet 5/325 Mg Tab) 1 tab PO Q6 PRN PRN Reason: Pain, moderate (4-7) Stop: 08/23/17 02:55 Last Admin: 08/21/17 21:21 Dose: 1 tab Pantoprazole Sodium (Protonix Ec Tab) 40 mg PO DAILY [facility] Last Admin: 08/21/17 10:05 Dose: 40 mg Sevelamer HCl (Renagel) 800 mg PO TID [facility] Last Admin: 08/21/17 17:30 Dose: 800 mg Sulfasalazine (Azulfidine) 1,000 mg PO Q6H [facility] PRN Reason: Protocol Last Admin: 08/22/17 03:25 Dose: Not Given Trazodone HCl (Desyrel) 50 mg PO HS [facility] Last Admin: 08/21/17 21:21 Dose: 50 mg - Labs Labs: 08/20/17 07:12 08/22/17 07:50 PT 13.9 Seconds (9.8-13.1) H 08/22/17 07:50 INR 1.3 (0.9-1.2) H 08/22/17 07:50 APTT 34.1 Seconds (25.6-37.1) 08/22/17 07:50
[2017-08-22] MEDS ORDERED: Sodium Chloride 0.9% 500 ML IV ONE (10:48)
--- NOTE | 2017-08-22 11:47 | CP.PCM.PN ---
Subjective - Date & Time of Evaluation Date of Evaluation: 08/22/17 Time of Evaluation: 11:42 - Subjective Subjective: SPINE Pt had MRI done this am under sedation. 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 CSF not getting through on images due to severe compression. Rec decompressive laminectomy with removal of disc/mass to try and alleviate pt's severe pain and inability to move. Family has spoken with Selwyn Whitaker and they understand signif risks involved given his medical co-morbidities but he has no quality of life as this and carries signif risks with prolonged bed rest. Have scheduled this for 7:45 tomorrow morning. Objective - Vital Signs/Intake and Output Vital Signs (last 24 hours): Temp Pulse Resp BP Pulse Ox 98.3 F 87 20 153/85 H 99 08/22/17 11:00 08/22/17 11:15 08/22/17 11:15 08/22/17 11:15 08/22/17 11:15 Intake and Output: 08/22/17 08/22/17 06:59 18:59 Output Total 250 Balance -250 - Medications Medications: Current Medications Acetaminophen (Tylenol 325mg Tab) 650 mg PO Q6 PRN PRN Reason: Fever >100.4 F Acetaminophen (Tylenol 325mg Tab) 650 mg PO Q6 PRN PRN Reason: Pain, Mild (1-3) Atorvastatin Calcium (Lipitor) 10 mg PO DAILY [facility] Last Admin: 08/21/17 10:05 Dose: 10 mg Cholecalciferol (Vitamin D) 5,000 intlu PO Q48H [facility] Last Admin: 08/22/17 02:24 Dose: Not Given Cyclobenzaprine HCl (Flexeril) 10 mg PO TID [facility] Last Admin: 08/21/17 17:56 Dose: 10 mg Dexamethasone (Decadron Inj) 2 mg IV Q8 [facility] Last Admin: 08/22/17 01:21 Dose: 2 mg Diazepam (Valium) 2 mg PO BID [facility] Docusate Sodium (Colace) 100 mg PO BID [facility] Last Admin: 08/21/17 17:29 Dose: Not Given Folic Acid (Folic Acid) 1 mg PO DAILY [facility] Last Admin: 08/21/17 10:05 Dose: 1 mg Heparin Sodium (Porcine) (Heparin) 5,000 units SC Q8 [facility] PRN Reason: Protocol Last Admin: 08/22/17 01:00 Dose: 5,000 units Ceftriaxone Sodium 1 gm/ (Sodium Chloride) 100 mls @ 100 mls/hr IVPB DAILY [facility] PRN Reason: Protocol Lactulose (Enulose) 20 gm PO DAILY PRN PRN Reason: Constipation Lidocaine (Lidoderm) 1 ea TD DAILY [facility] Last Admin: 08/21/17 10:05 Dose: 1 ea Metoprolol Tartrate (Lopressor) 50 mg PO Q12 [facility] Last Admin: 08/21/17 21:19 Dose: 50 mg Morphine Sulfate (Morphine) 2 mg IVP Q4 PRN PRN Reason: Pain, severe (8-10) Last Admin: 08/20/17 23:18 Dose: 2 mg Oxycodone/Acetaminophen (Percocet 5/325 Mg Tab) 1 tab PO Q6 PRN PRN Reason: Pain, moderate (4-7) Stop: 08/23/17 02:55 Last Admin: 08/21/17 21:21 Dose: 1 tab Pantoprazole Sodium (Protonix Ec Tab) 40 mg PO DAILY [facility] Last Admin: 08/21/17 10:05 Dose: 40 mg Sevelamer HCl (Renagel) 800 mg PO TID [facility] Last Admin: 08/21/17 17:30 Dose: 800 mg Sulfasalazine (Azulfidine) 1,000 mg PO Q6H [facility] PRN Reason: Protocol Last Admin: 08/22/17 03:25 Dose: Not Given Trazodone HCl (Desyrel) 50 mg PO HS [facility] Last Admin: 08/21/17 21:21 Dose: 50 mg - Labs Labs: 08/20/17 07:12 08/22/17 07:50 PT 13.9 Seconds (9.8-13.1) H 08/22/17 07:50 INR 1.3 (0.9-1.2) H 08/22/17 07:50 APTT 34.1 Seconds (25.6-37.1) 08/22/17 07:50
[2017-08-22] MEDS ORDERED: Morphine 4 MG/ML VIAL IVP PRN (12:14)
[2017-08-22] MEDS: Lidocaine 5% Patch TD SCH ×2 (12:18→13:32)
[2017-08-22] MEDS: Pantoprazole 40 mg EC Tab PO SCH ×2 (12:19→17:16)
--- NOTE | 2017-08-22 12:32 | MRI ---
PROCEDURE: MRI lumbar spine dated 08/22/2017. HISTORY: Back pain. Herniated disc COMPARISON: Comparison made with prior CT scan of the lumbar spine dated 08/20/2017. TECHNIQUE: Multiecho multiplanar sequences were performed through the lumbar spine without the use of intravenous contrast. FINDINGS: No evidence of acute compression fractures nor retropulsed fragments. Vertebral bodies exhibit normal stature. Vertebral bodies and facets normally aligned. There appears to be mild congenital canal stenosis exacerbated by a multilevel degenerative spondylosis. . There appears to be a transitional vertebral body which probably represents lumbarized S1 segment. . At the L4-L5 level, there is disc desiccation however disc space height maintained. Large central and bilateral disc herniation with superior subligamentous extrusion of disc material dorsal to the inferior 1/2 of the L4 segment. . Changes result in significant central canal - bilateral lateral recess stenosis and compressive effects on the thecal sac. The facets are also hypertrophic. The disc extends slightly into the proximal inferior margins of both exit foramina which are slightly narrowed though no significant nerve root compression. At the L5-S1 level, there is disc desiccation and disc space narrowing more so along the posterior disc margin. Small central and bilateral disc bulge asymmetrically larger on the left than the right with extension into the proximal inferior margins of both exit foramina left greater than right. Vacuum disc phenomena seen to better advantage on prior CT scan. The facet joints are hypertrophic. There is mild bilateral lateral recess narrowing with mild compressive effects on the ventral surface of the thecal sac however the overall central canal does appear adequate. Exit foramina are narrowed bilaterally more severe than the right with compression of the left-sided exit foraminal nerve root. . At the L3-L4 level, there is disc desiccation. Disc space height is relatively maintained. Small broad-based disc bulge ridge complex extends into the proximal inferior margins of both exit foramina of larger on the right than left. The facets are hypertrophic and ligamentum flavum buckled. There is resultant significant bilateral lateral recess and central canal stenosis. Exit foramina are marginal to mildly narrowed though no significant compressive effects on the foraminal nerve roots. . At the L1-L2 level, there is a mild to moderate age related disc desiccation. Disc space height maintained. No disc herniation the there does appear to be some minimal on disc bulging most pronounced in the proximal aspect left exit foramen. The facet joints also hypertrophic. Changes result in mild bilateral lateral recess and central canal stenosis. Exit foramina adequate. Conus terminates at approximately the L1-L2 level. OTHER FINDINGS: Re- demonstrated are bilateral renal cysts. 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 Large central and bilateral disc herniation L 4 L5 level with superior subligamentous extension of disc material over short distance dorsal to the inferior half of the L4 segment. Changes result in significant canal stenosis and compression of the thecal sac as well as intrathecal nerve roots of the cauda equina as detailed above See above discussion for additional details and findings.
[2017-08-22 19:46] LABS: FOLATE > 20.0 ng/mL
[2017-08-23] MEDS ORDERED: Bupivacaine 0.5% Inj(30mL) ONE (07:11)
[2017-08-23] MEDS ORDERED: Absorbable Gelatin Sponge Size 100 ONE (07:11)
[2017-08-23] MEDS ORDERED: Lidocaine 1% w Epi 1:100,000 Inj ONE (07:11)
[2017-08-23] MEDS ORDERED: Thrombin Topical 5,000 Int Units Spray Kit ONE (07:11)
[2017-08-23] MEDS ORDERED: Bacitracin Ointment 30 GM TUBE ONE (07:11)
[2017-08-23] MEDS ORDERED: Rocuronium 10 mg/ml (5 ml) ONE (07:33)
[2017-08-23] MEDS ORDERED: Succinylcholine 200 mg/10 ml Inj IV ONE (07:33)
[2017-08-23] MEDS ORDERED: Lidocaine 4% (Laryng-O-Jet) Kit MM ONE (07:33)
[2017-08-23] MEDS ORDERED: Propofol 10 mg/ml Inj (20 ML) ONE ×2 (07:33→07:51)
[2017-08-23] MEDS ORDERED: Etomidate 20 mg/10ml Inj IV ONE (07:34)
[2017-08-23] MEDS ORDERED: Vasopressin 20 Units/ml Inj ONE (07:42)
[2017-08-23] MEDS ORDERED: Vancomycin 1 g Inj ONE (07:55)
[2017-08-23 08:22] LABS: HEMOGLOBIN 12.6 g/dL (12.0-18.0); MEAN CELL VOLUME 92.4 fl (80.0-94.0); MEAN CORPUSCULAR HEMOGLOBIN 32.3 pg (27.0-31.0); RBC 3.89 Mil/uL (4.40-5.90); WHITE BLOOD COUNT 7.6 K/uL (4.8-10.8)
[2017-08-23 08:24] LABS: INR 1.2 (0.9-1.2); PROTHROMBIN TIME 13.6 Seconds (9.8-13.1)
[2017-08-23] MEDS ORDERED: Lactated Ringer's 1,000 ML IV ONE (08:25)
[2017-08-23] MEDS ORDERED: Midazolam 2 MG/2 ML VIAL ONE (08:27)
[2017-08-23 08:30] LABS: CALCIUM 9.7 mg/dL (8.4-10.2)
--- NOTE | 2017-08-23 08:34 | CP.PCM.PN ---
Subjective - Date & Time of Evaluation Date of Evaluation: 08/23/17 Time of Evaluation: 07:40 - Subjective Subjective: Anxious about planned surgery Agitated (at times confused) Breathes comfortably Afebrile, HR 80 BPM, BP 146/ 70 mm Hg JVP flat, no rales , wheez Labs: stable Spoke with and daughter They are aware of the MRI findings and need for Sx which is to releive pain The risks of sx were explained and understood by them Pt is as stable as possible for the planned sx Objective - Vital Signs/Intake and Output Vital Signs (last 24 hours): Temp Pulse Resp BP Pulse Ox 98.0 F 84 20 175/80 H 93 L 08/23/17 08:02 08/23/17 08:02 08/23/17 08:02 08/23/17 08:02 08/23/17 08:02 Intake and Output: 08/23/17 08/23/17 06:59 18:59 Output Total 1000 Balance -1000 - Medications Medications: Current Medications Acetaminophen (Tylenol 325mg Tab) 650 mg PO Q6 PRN PRN Reason: Fever >100.4 F Acetaminophen (Tylenol 325mg Tab) 650 mg PO Q6 PRN PRN Reason: Pain, Mild (1-3) Atorvastatin Calcium (Lipitor) 10 mg PO DAILY [facility] Last Admin: 08/22/17 17:16 Dose: 10 mg Cholecalciferol (Vitamin D) 5,000 intlu PO Q48H [facility] Last Admin: 08/22/17 02:24 Dose: Not Given Cyclobenzaprine HCl (Flexeril) 10 mg PO TID [facility] Last Admin: 08/22/17 17:14 Dose: 10 mg Dexamethasone (Decadron) 2 mg PO Q12 [facility] Last Admin: 08/22/17 21:54 Dose: 2 mg Diazepam (Valium) 2 mg PO DAILY [facility] Docusate Sodium (Colace) 100 mg PO BID [facility] Last Admin: 08/22/17 17:14 Dose: 100 mg Folic Acid (Folic Acid) 1 mg PO DAILY [facility] Last Admin: 08/22/17 12:18 Dose: Not Given Ceftriaxone Sodium 1 gm/ (Sodium Chloride) 100 mls @ 100 mls/hr IVPB DAILY [facility] PRN Reason: Protocol Last Admin: 08/22/17 13:31 Dose: 100 mls/hr Lactulose (Enulose) 20 gm PO DAILY PRN PRN Reason: Constipation Lidocaine (Lidoderm) 1 ea TD DAILY [facility] Last Admin: 08/22/17 13:32 Dose: 1 ea Metoprolol Tartrate (Lopressor) 50 mg PO Q12 [facility] Last Admin: 08/23/17 06:38 Dose: 50 mg Morphine Sulfate (Morphine) 2 mg IVP Q6 PRN PRN Reason: Pain, severe (8-10) Pantoprazole Sodium (Protonix Ec Tab) 40 mg PO DAILY [facility] Last Admin: 08/22/17 17:16 Dose: 40 mg Sevelamer HCl (Renagel) 800 mg PO TID [facility] Last Admin: 08/22/17 17:15 Dose: 800 mg Sulfasalazine (Azulfidine) 1,000 mg PO Q6H [facility] PRN Reason: Protocol Last Admin: 08/23/17 03:00 Dose: Not Given Trazodone HCl (Desyrel) 50 mg PO HS [facility] Last Admin: 08/22/17 21:56 Dose: 50 mg - Labs Labs: 08/20/17 07:12 08/22/17 07:50 PT 13.6 Seconds (9.8-13.1) H 08/23/17 08:00 INR 1.2 (0.9-1.2) 08/23/17 08:00 APTT 34.1 Seconds (25.6-37.1) 08/22/17 07:50
[2017-08-23] MEDS ORDERED: Sodium Chloride 0.9% 500 ML IV ONE (08:40)
[2017-08-23] MEDS: Pantoprazole 40 mg EC Tab PO SCH (09:08)
[2017-08-23] MEDS: Lidocaine 5% Patch TD SCH (09:08)
[2017-08-23] MEDS ORDERED: HEMOSTATIC MATRIX 10 ML DIS.NEEDLE TOP ONE ×2 (09:28→10:00)
[2017-08-23] MEDS ORDERED: Absorbable Gelatin Sponge Size 100 TP ONE ×2 (09:29→10:05)
[2017-08-23] MEDS ORDERED: Thrombin Topical 5,000 Int Units Spray Kit TOP ONE ×2 (09:29→10:05)
[2017-08-23] MEDS ORDERED: Dexamethasone 4 mg/1 ml ONE (09:34)
[2017-08-23] MEDS ORDERED: Neostigmine 1:1000 (1 mg/ml) Inj ONE (09:52)
[2017-08-23] MEDS ORDERED: Bupivacaine 0.5% 50 ML IJ ONE (10:10)
--- NOTE | 2017-08-23 12:01 | RAD ---
PROCEDURE: Intraoperative Fluoroscopy. HISTORY: LUMBAR LAMI FINDINGS: Fluoroscopic assistance was provided. 10.2 seconds fluoroscopy time utilized during this procedure. Radiation dose = 4.41 mGy. Please refer to the operative report for additional details.
--- NOTE | 2017-08-23 14:15 | PQF GENQUE ---
Dr. Waddell, Please respond to the query in the physician response section of this query form. Thank You 2 queries: Please specify the type and acuity of heart failure in your progress notes: versus No CHF: hx. only and not chronic 1. TYPE: Combined systolic and diastolic Heart failure with reduced ejection fraction and diastolic dysfunction Diastolic HFpEF Systolic HFrEF Left heart failure Right heart failure Right heart failure due to left heart failure High Output failure End stage heart failure Other (please specify) Clinically unable to determine Unknown 2. ACUITY: Acute Chronic Acute on chronic Other (please specify) Clinically unable to determine Unknown 3. CAUSE: Due to presence of cardiac prosthesis Following cardiac surgery Following non cardiac surgery Hypertensive Other cause (please specify) Clinically unable to determine Unknown H and P: hx. CHF Cardiology consult: PMH: CHF systolic dysfunction This form is a permanent part of the medical record Clarification of your documentation is requested to better reflect the severity of illness and intensity of treatment of your patient. Indicators present PATIENT HAS CHRONIC SYSTOLIC HEART FAILURE WITH REDUCED EJECTION FRACTION [] Specify: [] [] Specify: [] [] Specify: [] [] Specify: [] Location in the medical record that reflects the above clinical findings: [] Treatment Provided: [] PHYSICIAN'S RESPONSE Based on your medical judgment of the clinical indicators outlined above please clarify the following: [] Practitioner response [] If unable to determine, please check the box, sign and date. Present On Admission (POA) Indicator: [] Present at the time of admission [] Not present at the time of admission [] Clinically Undetermined In responding to this query, please exercise your independent professional judgment. The fact that a question is asked does not imply that any particular answer is desired or expected. Thank you for your clarification on this documentation. If you have any questions please call. * Thank you, Lory Wallis RN ext. #[phone] MTDD
[2017-08-23] MEDS: Lactated Ringer's 1,000 ML IV SCH ×2 (14:49→22:36)
--- NOTE | 2017-08-23 19:23 | CP.PCM.PN ---
Subjective - Date & Time of Evaluation Date of Evaluation: 08/23/17 Time of Evaluation: 16:00 - Subjective Subjective: Patient seen and examined. Post laminectomy L4-5. No complaint of pain and able to regular tolerate diet. Objective - Vital Signs/Intake and Output Vital Signs (last 24 hours): Temp Pulse Resp BP Pulse Ox 97.5 F L 79 20 147/71 99 08/23/17 15:44 08/23/17 15:44 08/23/17 15:44 08/23/17 15:44 08/23/17 15:44 Intake and Output: 08/23/17 08/24/17 18:59 06:59 Intake Total 1200 Output Total 160 Balance 1040 - Medications Medications: Current Medications Acetaminophen (Tylenol 325mg Tab) 650 mg PO Q6 PRN PRN Reason: Fever >100.4 F Acetaminophen (Tylenol 325mg Tab) 650 mg PO Q6 PRN PRN Reason: Pain, Mild (1-3) Atorvastatin Calcium (Lipitor) 10 mg PO DAILY [facility] Last Admin: 08/23/17 09:08 Dose: Not Given Cholecalciferol (Vitamin D) 5,000 intlu PO Q48H [facility] Last Admin: 08/22/17 02:24 Dose: Not Given Cyclobenzaprine HCl (Flexeril) 10 mg PO TID [facility] Last Admin: 08/23/17 14:48 Dose: 10 mg Dexamethasone (Decadron) 2 mg PO Q12 [facility] Last Admin: 08/23/17 09:08 Dose: Not Given Diazepam (Valium) 2 mg PO DAILY [facility] Last Admin: 08/23/17 09:09 Dose: Not Given Docusate Sodium (Colace) 100 mg PO BID [facility] Last Admin: 08/23/17 09:08 Dose: Not Given Folic Acid (Folic Acid) 1 mg PO DAILY [facility] Last Admin: 08/23/17 09:08 Dose: Not Given Hydromorphone HCl (Dilaudid) 0.5 mg IVP Q3 PRN PRN Reason: Pain, moderate (4-7) Last Admin: 08/23/17 14:46 Dose: 0.5 mg Ceftriaxone Sodium 1 gm/ (Sodium Chloride) 100 mls @ 100 mls/hr IVPB DAILY [facility] PRN Reason: Protocol Last Admin: 08/23/17 09:09 Dose: Not Given Lactated Ringer's (Lactated Ringer's) 1,000 mls @ 100 mls/hr IV .Q10H [facility] Last Admin: 08/23/17 14:49 Dose: 100 mls/hr Lactulose (Enulose) 20 gm PO DAILY PR[facility] PRN Reason: Constipation Lidocaine (Lidoderm) 1 ea TD DAILY [facility] Last Admin: 08/23/17 09:08 Dose: Not Given Metoprolol Tartrate (Lopressor) 50 mg PO Q12 [facility] Last Admin: 08/23/17 09:08 Dose: Not Given Morphine Sulfate (Morphine) 2 mg IVP Q6 PRN PRN Reason: Pain, severe (8-10) Pantoprazole Sodium (Protonix Ec Tab) 40 mg PO DAILY [facility] Last Admin: 08/23/17 09:08 Dose: Not Given Sevelamer HCl (Renagel) 800 mg PO TID [facility] Last Admin: 08/23/17 14:48 Dose: Not Given Sulfasalazine (Azulfidine) 1,000 mg PO Q6H [facility] PRN Reason: Protocol Last Admin: 08/23/17 14:48 Dose: 1,000 mg Trazodone HCl (Desyrel) 50 mg PO HS [facility] Last Admin: 08/22/17 21:56 Dose: 50 mg - Labs Labs: 08/23/17 08:00 08/23/17 08:00 PT 13.6 Seconds (9.8-13.1) H 08/23/17 08:00 INR 1.2 (0.9-1.2) 08/23/17 08:00 APTT 34.1 Seconds (25.6-37.1) 08/22/17 07:50 - Constitutional Appears: No Acute Distress - Head Exam Head Exam: ATRAUMATIC - Eye Exam Eye Exam: absent: Scleral icterus - ENT Exam ENT Exam: Mucous Membranes Moist - Neck Exam Neck Exam: absent: Meningismus - Respiratory Exam Respiratory Exam: absent: Rhonchi, Wheezes, Respiratory Distress - Cardiovascular Exam Cardiovascular Exam: REGULAR RHYTHM, +S1, +S2 - GI/Abdominal Exam GI & Abdominal Exam: Soft. absent: Tenderness - Rectal Exam Rectal Exam: Deferred - Neurological Exam Neurological Exam: Alert - Psychiatric Exam Psychiatric exam: Normal Affect - Skin Skin Exam: Dry, Intact Assessment and Plan - Assessment and Plan (Free Text) Assessment: 81 yo male with history of CAD, HTN, CKD and History of Bladder Cancer brought in because of severe low back pain secondary to herniated disc on L4L5 causing significant canal stenosis and compression of the thecal sac and intrathecal nerve roots of the cauda equina. 1. Intractable Low back pain secondary to lumbar disc herniation, L4-L5 post laminectomy L4L5 with removal of herniated disc continue PO Decadron pain manageable with IV Dilaudid 2. HTN BP stable continue Metoprolol 50mg PO q 12hrs 3. Acute on CKD, stage III continue IV hydration with NSS renal function improving 4. CAD asymptomatic continue statin and BB off ASA/Plavix
[2017-08-24] MEDS: Lactated Ringer's 1,000 ML IV SCH (03:29)
--- NOTE | 2017-08-24 08:08 | CP.PCM.PN ---
Subjective - Date & Time of Evaluation Date of Evaluation: 08/24/17 Time of Evaluation: 08:00 - Subjective Subjective: Except for surgical paun, free of any other discomfort Has tolerated oral fluids well Afebrile, in sinus rhythm at 78 BPM BP 140/70 mm Hg No evidence of volume over load (have D/Catarino IV fluids) Pt to start sitting OOB with PT today EKG for today and labs for tomorrow ordered Objective - Vital Signs/Intake and Output Vital Signs (last 24 hours): Temp Pulse Resp BP Pulse Ox 97.6 F 92 H 18 158/71 H 100 08/24/17 08:00 08/24/17 08:00 08/24/17 08:00 08/24/17 08:00 08/24/17 08:00 Intake and Output: 08/24/17 08/24/17 06:59 18:59 Intake Total 1800 Output Total 900 Balance 900 - Medications Medications: Current Medications Acetaminophen (Tylenol 325mg Tab) 650 mg PO Q6 PRN PRN Reason: Fever >100.4 F Acetaminophen (Tylenol 325mg Tab) 650 mg PO Q6 PRN PRN Reason: Pain, Mild (1-3) Atorvastatin Calcium (Lipitor) 10 mg PO DAILY [facility] Last Admin: 08/23/17 09:08 Dose: Not Given Cholecalciferol (Vitamin D) 5,000 intlu PO Q48H [facility] Last Admin: 08/22/17 02:24 Dose: Not Given Dexamethasone (Decadron) 2 mg PO Q12 [facility] Last Admin: 08/23/17 21:16 Dose: 2 mg Diazepam (Valium) 2 mg PO DAILY [facility] Last Admin: 08/23/17 09:09 Dose: Not Given Docusate Sodium (Colace) 100 mg PO BID [facility] Last Admin: 08/23/17 19:53 Dose: Not Given Hydromorphone HCl (Dilaudid) 0.5 mg IVP Q3 PRN PRN Reason: Pain, moderate (4-7) Last Admin: 08/24/17 03:27 Dose: 0.5 mg Ceftriaxone Sodium 1 gm/ (Sodium Chloride) 100 mls @ 100 mls/hr IVPB DAILY [facility] PRN Reason: Protocol Last Admin: 08/23/17 09:09 Dose: Not Given Lactulose (Enulose) 20 gm PO DAILY PRN PRN Reason: Constipation Lidocaine (Lidoderm) 1 ea TD DAILY [facility] Last Admin: 08/23/17 09:08 Dose: Not Given Metoprolol Tartrate (Lopressor) 50 mg PO Q12 [facility] Last Admin: 08/23/17 21:17 Dose: 50 mg Morphine Sulfate (Morphine) 2 mg IVP Q6 PRN PRN Reason: Pain, severe (8-10) Pantoprazole Sodium (Protonix Ec Tab) 40 mg PO DAILY [facility] Last Admin: 08/23/17 09:08 Dose: Not Given Sevelamer HCl (Renagel) 800 mg PO TID [facility] Last Admin: 08/23/17 19:53 Dose: Not Given Sulfasalazine (Azulfidine) 1,000 mg PO Q6H [facility] PRN Reason: Protocol Last Admin: 08/24/17 04:02 Dose: 1,000 mg Trazodone HCl (Desyrel) 50 mg PO HS [facility] Last Admin: 08/23/17 21:17 Dose: 50 mg - Labs Labs: 08/23/17 08:00 08/23/17 08:00 PT 13.6 Seconds (9.8-13.1) H 08/23/17 08:00 INR 1.2 (0.9-1.2) 08/23/17 08:00 APTT 34.1 Seconds (25.6-37.1) 08/22/17 07:50
--- NOTE | 2017-08-24 09:39 | CP.PCM.PN ---
Subjective - Date & Time of Evaluation Date of Evaluation: 08/24/17 Time of Evaluation: 09:36 - Subjective Subjective: SPINE - POD #1 Pt resting in bed. Appears much more comfortable than pre-op.States he has some back pain at surg site and some R leg pain but not what it was before the operation. Taking po. Voiding via urostomy. Has not asked for pain meds since 3 this morning. Afebrile. BP a little elevated. Moves all extremities actively. Neuro grossly intact. Plan: Begin to mobilize today w PT. Objective - Vital Signs/Intake and Output Vital Signs (last 24 hours): Temp Pulse Resp BP Pulse Ox 97.6 F 92 H 18 158/71 H 100 08/24/17 08:00 08/24/17 08:00 08/24/17 08:00 08/24/17 08:00 08/24/17 08:00 Intake and Output: 08/24/17 08/24/17 06:59 18:59 Intake Total 1800 Output Total 900 Balance 900 - Medications Medications: Current Medications Acetaminophen (Tylenol 325mg Tab) 650 mg PO Q6 PRN PRN Reason: Fever >100.4 F Acetaminophen (Tylenol 325mg Tab) 650 mg PO Q6 PRN PRN Reason: Pain, Mild (1-3) Atorvastatin Calcium (Lipitor) 10 mg PO DAILY [facility] Last Admin: 08/23/17 09:08 Dose: Not Given Cholecalciferol (Vitamin D) 5,000 intlu PO Q48H [facility] Last Admin: 08/22/17 02:24 Dose: Not Given Dexamethasone (Decadron) 2 mg PO Q12 [facility] Last Admin: 08/23/17 21:16 Dose: 2 mg Diazepam (Valium) 2 mg PO DAILY [facility] Last Admin: 08/23/17 09:09 Dose: Not Given Docusate Sodium (Colace) 100 mg PO BID [facility] Last Admin: 08/23/17 19:53 Dose: Not Given Hydromorphone HCl (Dilaudid) 0.5 mg IVP Q3 PRN PRN Reason: Pain, moderate (4-7) Last Admin: 08/24/17 03:27 Dose: 0.5 mg Ceftriaxone Sodium 1 gm/ (Sodium Chloride) 100 mls @ 100 mls/hr IVPB DAILY [facility] PRN Reason: Protocol Last Admin: 08/23/17 09:09 Dose: Not Given Lactulose (Enulose) 20 gm PO DAILY PRN PRN Reason: Constipation Lidocaine (Lidoderm) 1 ea TD DAILY [facility] Last Admin: 08/23/17 09:08 Dose: Not Given Metoprolol Tartrate (Lopressor) 50 mg PO Q12 [facility] Last Admin: 08/23/17 21:17 Dose: 50 mg Morphine Sulfate (Morphine) 2 mg IVP Q6 PRN PRN Reason: Pain, severe (8-10) Pantoprazole Sodium (Protonix Ec Tab) 40 mg PO DAILY [facility] Last Admin: 08/23/17 09:08 Dose: Not Given Sevelamer HCl (Renagel) 800 mg PO TID [facility] Last Admin: 08/23/17 19:53 Dose: Not Given Sulfasalazine (Azulfidine) 1,000 mg PO Q6H [facility] PRN Reason: Protocol Last Admin: 08/24/17 04:02 Dose: 1,000 mg Trazodone HCl (Desyrel) 50 mg PO HS [facility] Last Admin: 08/23/17 21:17 Dose: 50 mg - Labs Labs: 08/23/17 08:00 08/23/17 08:00 PT 13.6 Seconds (9.8-13.1) H 08/23/17 08:00 INR 1.2 (0.9-1.2) 08/23/17 08:00 APTT 34.1 Seconds (25.6-37.1) 08/22/17 07:50
[2017-08-24] MEDS: Lidocaine 5% Patch TD SCH ×2 (09:58→17:46)
[2017-08-24] MEDS: Pantoprazole 40 mg EC Tab PO SCH (10:03)
--- NOTE | 2017-08-24 11:37 | CARD ---
APPROVED REPORT EKG Measurement Heart [id number] <Conclusion> Sinus rhythm with 1st degree AV block Incomplete right bundle branch block Possible Anterior infarct, age undetermined Abnormal ECG
--- NOTE | 2017-08-24 18:13 | CP.PCM.PN ---
Subjective - Date & Time of Evaluation Date of Evaluation: 08/24/17 Time of Evaluation: 11:00 - Subjective Subjective: Patient seen and examined. Admitted feeling better. Pain very tolerable and didn 't pain meds. Objective - Vital Signs/Intake and Output Vital Signs (last 24 hours): Temp Pulse Resp BP Pulse Ox 97.5 F L 85 18 145/65 98 08/24/17 16:34 08/24/17 16:34 08/24/17 16:34 08/24/17 16:34 08/24/17 16:34 Intake and Output: 08/24/17 08/24/17 06:59 18:59 Intake Total 1800 Output Total 900 Balance 900 - Medications Medications: Current Medications Acetaminophen (Tylenol 325mg Tab) 650 mg PO Q6 PRN PRN Reason: Fever >100.4 F Acetaminophen (Tylenol 325mg Tab) 650 mg PO Q6 PRN PRN Reason: Pain, Mild (1-3) Atorvastatin Calcium (Lipitor) 10 mg PO DAILY [facility] Last Admin: 08/24/17 17:48 Dose: 10 mg Cholecalciferol (Vitamin D) 5,000 intlu PO Q48H [facility] Last Admin: 08/22/17 02:24 Dose: Not Given Dexamethasone (Decadron) 2 mg PO Q12 [facility] Last Admin: 08/24/17 10:03 Dose: 2 mg Diazepam (Valium) 2 mg PO DAILY [facility] Last Admin: 08/24/17 10:44 Dose: Not Given Docusate Sodium (Colace) 100 mg PO BID [facility] Last Admin: 08/24/17 17:47 Dose: 100 mg Hydromorphone HCl (Dilaudid) 0.5 mg IVP Q3 PRN PRN Reason: Pain, moderate (4-7) Last Admin: 08/24/17 12:48 Dose: 0.5 mg Ceftriaxone Sodium 1 gm/ (Sodium Chloride) 100 mls @ 100 mls/hr IVPB DAILY [facility] PRN Reason: Protocol Last Admin: 08/24/17 10:11 Dose: 100 mls/hr Lactulose (Enulose) 20 gm PO DAILY PRN PRN Reason: Constipation Lidocaine (Lidoderm) 1 ea TD DAILY [facility] Last Admin: 08/24/17 17:46 Dose: Not Given Metoprolol Tartrate (Lopressor) 50 mg PO Q12 [facility] Last Admin: 08/24/17 10:02 Dose: 50 mg Morphine Sulfate (Morphine) 2 mg IVP Q6 PRN PRN Reason: Pain, severe (8-10) Pantoprazole Sodium (Protonix Ec Tab) 40 mg PO DAILY [facility] Last Admin: 08/24/17 10:03 Dose: 40 mg Sevelamer HCl (Renagel) 800 mg PO TID [facility] Last Admin: 08/24/17 17:49 Dose: 800 mg Sulfasalazine (Azulfidine) 1,000 mg PO Q6H [facility] PRN Reason: Protocol Last Admin: 08/24/17 15:15 Dose: 1,000 mg Trazodone HCl (Desyrel) 50 mg PO HS [facility] Last Admin: 08/23/17 21:17 Dose: 50 mg - Labs Labs: 08/23/17 08:00 08/23/17 08:00 PT 13.6 Seconds (9.8-13.1) H 08/23/17 08:00 INR 1.2 (0.9-1.2) 08/23/17 08:00 APTT 34.1 Seconds (25.6-37.1) 08/22/17 07:50 - Constitutional Appears: No Acute Distress - Head Exam Head Exam: ATRAUMATIC - Eye Exam Eye Exam: absent: Scleral icterus - ENT Exam ENT Exam: Mucous Membranes Moist - Neck Exam Neck Exam: absent: Meningismus - Respiratory Exam Respiratory Exam: absent: Rhonchi, Wheezes, Respiratory Distress - Cardiovascular Exam Cardiovascular Exam: REGULAR RHYTHM, +S1, +S2 - GI/Abdominal Exam GI & Abdominal Exam: Soft. absent: Tenderness - Rectal Exam Rectal Exam: Deferred - Neurological Exam Neurological Exam: Alert, Oriented x3 - Psychiatric Exam Psychiatric exam: Normal Affect - Skin Skin Exam: Dry, Intact Assessment and Plan - Assessment and Plan (Free Text) Assessment: 81 yo male with history of CAD, HTN, CKD and History of Bladder Cancer brought in because of severe low back pain secondary to herniated disc on L4L5 causing significant canal stenosis and compression of the thecal sac and intrathecal nerve roots of the cauda equina. 1. Intractable Low back pain secondary to lumbar disc herniation, L4-L5 post laminectomy L4L5 with removal of herniated disc continue PO Decadron pain tolerable and did not need pain medications PT/OT consult and management 2. HTN BP stable continue Metoprolol 50mg PO q 12hrs 3. Acute on CKD, stage III renal function improving liberal intake of oral fluid 4. CAD asymptomatic continue statin and BB off ASA/Plavix
[2017-08-25 05:42] LABS: HEMOGLOBIN 10.3 g/dL (12.0-18.0); MEAN CELL VOLUME 94.1 fl (80.0-94.0); MEAN CORPUSCULAR HEMOGLOBIN 32.1 pg (27.0-31.0); MEAN CORPUSCULAR HGB CONC 34.1 g/dL (33.0-37.0); RBC 3.21 Mil/uL (4.40-5.90); RED CELL DISTRIBUTION WIDTH 12.7 % (11.5-14.5); WHITE BLOOD COUNT 10.1 K/uL (4.8-10.8)
[2017-08-25 06:34] LABS: ALB/GLOB RATIO 1.2 (1.0-2.1); ALBUMIN 3.4 g/dL (3.5-5.0)
--- NOTE | 2017-08-25 08:48 | OP ---
PROCEDURE DATE: 08/23/2017 PREOPERATIVE DIAGNOSIS: Severe spinal sac compression, secondary to extruded herniated disc. POSTOPERATIVE DIAGNOSIS: Severe spinal sac compression, secondary to extruded herniated disc. OPERATIONS: Laminectomy with excision of herniated disc. SURGEON: Ernesto Buckner MD [employer] OFFICER: Duran Marcano MD TYPE OF ANESTHESIA: General endotracheal tube intubation. INDICATIONS OF PROCEDURE: The patient was seen in consultation at hospital with severe pain in his back and legs and inability to get out of bed. CAT scan was done and read as showing an extruded disc at L3-4 with some stenosis at L2-3. After discussion with the family and the patient, consent was obtained for laminectomy at L3-4 with excision of herniated disc and possible laminectomy at L2-3. The patient had an MRI done and the radiologist who did the MRI felt that the bottom disc was a lumbarized sacral and therefore read the herniated disc as being at L4-5 with some residual stenosis above that at L3-4. However, for continuity, we are listing the herniated disc and cooperating with the MRI and calling at L4-5. Fluoroscopy being used during the case we can see that it is the third disc up than the first one with the end plates are fairly level so that it will be a proper count intraoperatively. DESCRIPTION OF PROCEDURE: The patient was brought in to the operative room and general anesthesia was achieved. Anesthesia administered intravenous antibiotics and started an A-line. Sequential compression boots were placed to each of the patient's legs. Spinal cord monitoring leads were placed throughout the patient's body. Real-time monitoring was done by a vein access technician in the room and remote monitoring done by a physician as well. The patient was gently transferred onto the operating table after urostomy bag was drained. He was placed prone on Ian frame, keeping his abdomen free from pressure anteriorly. Care was taken to be certain the urostomy site was not under any pressure on the Ian frame. The elbows and knees were well-padded and protected and a Steri-Drape was used to seal off the patient's perineal region from the operative field. His back was then sterilely prepped and draped. The level of the incision was noted under fluoroscopy and then incision made sharply in the midline and cooperating part of his previous incision going proximally. This was taken down to subcutaneous tissue using sharp and blunt dissection. Hemostasis was achieved using electrocautery. The fascia was divided and stripped laterally off the spinous process and lamina at the level of the facet joints. Soft tissue attachments were cleared on each side at each level so we could identify the pars above and below the L4-5 disc space. Again fluoroscopic view was taken to confirm we are at the appropriate level at that time that is the third disc coming up from the sacrum. A Leksell rongeur was then used to remove the spinous process and thinned down the lamina and laminectomy carried out in a [id number] fashion. This was done first in the midline and then out laterally to each side. Thecal sac appeared to be under great deal of tension. There was a lot of thickened ligamentum especially in the lateral recesses and again, everything was cleared and foraminotomy was carried out until we could easily pass a Lucas tool out the L4 and L5 foramina on each side. We carried laminectomy up some until we could pass a Lucas tool easily proximally as well and distally. The thecal sac was gently retracted and disc space identified. A needle was placed into the disc space and again fluoroscopic views confirmed we are at what we felt we are calling the L4-5 level, that is the third disc up from the bottom that could be visualized. There appeared to be a hole in the annulus and disc material was removed. A down angled curette was used to tamp down the disc in the midline and then that was removed. As we used the Lucas tool along the ventral surface thecal sac, two extremely large free fragments were encountered and removed. Once they were removed, the thecal sac to be much more easily mobilized. No further fragments were noted. The wound was copiously irrigated with antibiotic solution. Hemostasis was achieved with bipolar cautery along with thrombinated Gelfoam powder. A large piece of solid Gelfoam was used to cover the exposed neural elements and the wound was closed in layers with interrupted sutures of 0 Vicryl for the muscle and the fascia. The subcutaneous tissue was copiously irrigated with antibiotic solution at 20 mL of 0.5% Marcaine injected into the tissue to help with postoperative pain relief. The subcutaneous tissue was approximated with interrupted sutures of 2-0 Vicryl and the skin was closed with a running subcuticular suture of 3-0 Monocryl. Steri-Strips and a sterile dressing were applied. The patient was gently transferred back onto his bed in the supine position. He was awakened and extubated. He was taken to recovery room in stable condition, having tolerated the procedure well. Estimated blood loss was 150 mL. He received 1 liter of crystalloid during the operation and had urine output of about 50 mL or so. He was actively moving all the extremities at the time of the transfer. No permanent electrophysiologic abnormalities were noted at the completion of the case. Ernesto Buckner MD MTDTyler
[2017-08-25] MEDS: Lidocaine 5% Patch TD SCH (09:03)
[2017-08-25] MEDS: Pantoprazole 40 mg EC Tab PO SCH (09:04)
--- NOTE | 2017-08-25 09:44 | CP.PCM.PN ---
Subjective - Date & Time of Evaluation Date of Evaluation: 08/25/17 Time of Evaluation: 08:05 - Subjective Subjective: Required couple of doses of delaudid during the night Now C/O nausea Sinus rhythm at 70-80 BPM BP 144/70 mm Hg No signs of CHF No calf tenderness Sat in the chair briefly yesterday (will need a fair amount of encouragement to ambulate) Labs show BUN/ Creatinin 35/1.4 mg (much improved over adm values) Electrolytes noted CBC stable ( drop in Hb probably due to dilution with IV fluids) Stable from cardiac point of view to go to rehab Objective - Vital Signs/Intake and Output Vital Signs (last 24 hours): Temp Pulse Resp BP Pulse Ox 98.1 F 114 H 18 171/69 H 95 08/25/17 08:00 08/25/17 08:00 08/25/17 08:00 08/25/17 08:00 08/25/17 08:00 - Medications Medications: Current Medications Acetaminophen (Tylenol 325mg Tab) 650 mg PO Q6 PRN PRN Reason: Fever >100.4 F Acetaminophen (Tylenol 325mg Tab) 650 mg PO Q6 PRN PRN Reason: Pain, Mild (1-3) Atorvastatin Calcium (Lipitor) 10 mg PO DAILY [facility] Last Admin: 08/25/17 09:03 Dose: 10 mg Cholecalciferol (Vitamin D) 5,000 intlu PO Q48H [facility] Last Admin: 08/22/17 02:24 Dose: Not Given Dexamethasone (Decadron) 2 mg PO Q12 [facility] Last Admin: 08/25/17 09:02 Dose: 2 mg Diazepam (Valium) 2 mg PO DAILY [facility] Last Admin: 08/24/17 10:44 Dose: Not Given Docusate Sodium (Colace) 100 mg PO BID [facility] Last Admin: 08/25/17 09:02 Dose: 100 mg Hydromorphone HCl (Dilaudid) 0.5 mg IVP Q3 PRN PRN Reason: Pain, moderate (4-7) Last Admin: 08/25/17 01:56 Dose: 0.5 mg Ceftriaxone Sodium 1 gm/ (Sodium Chloride) 100 mls @ 100 mls/hr IVPB DAILY [facility] PRN Reason: Protocol Last Admin: 08/24/17 10:11 Dose: 100 mls/hr Lactulose (Enulose) 20 gm PO DAILY PRN PRN Reason: Constipation Lidocaine (Lidoderm) 1 ea TD DAILY [facility] Last Admin: 08/25/17 09:03 Dose: Not Given Metoprolol Tartrate (Lopressor) 50 mg PO Q12 [facility] Last Admin: 08/25/17 09:04 Dose: 50 mg Morphine Sulfate (Morphine) 2 mg IVP Q6 PRN PRN Reason: Pain, severe (8-10) Pantoprazole Sodium (Protonix Ec Tab) 40 mg PO DAILY [facility] Last Admin: 08/25/17 09:04 Dose: 40 mg Sevelamer HCl (Renagel) 800 mg PO TID [facility] Last Admin: 08/25/17 09:04 Dose: 800 mg Sulfasalazine (Azulfidine) 1,000 mg PO Q6H [facility] PRN Reason: Protocol Last Admin: 08/25/17 09:01 Dose: Not Given Trazodone HCl (Desyrel) 50 mg PO HS [facility] Last Admin: 08/24/17 22:04 Dose: 50 mg - Labs Labs: 08/25/17 05:00 08/25/17 05:00 PT 13.6 Seconds (9.8-13.1) H 08/23/17 08:00 INR 1.2 (0.9-1.2) 08/23/17 08:00 APTT 34.1 Seconds (25.6-37.1) 08/22/17 07:50
[2017-08-25] MEDS: Oxycodone/Acetaminophen 5/325 mg Tab PO PRN ×2 (11:32→21:31)
--- NOTE | 2017-08-25 15:10 | CP.PCM.PN ---
Subjective - Date & Time of Evaluation Date of Evaluation: 08/25/17 Time of Evaluation: 11:00 - Subjective Subjective: Pt is sitted on a chair No fever Pt complains of mild mild epigastric pain vomited this am after he was given IV Dilaudid per RN , he was able to eat his breakfast denies CP no SOB Objective - Vital Signs/Intake and Output Vital Signs (last 24 hours): Temp Pulse Resp BP Pulse Ox 97.5 F L 101 H 18 147/74 94 L 08/25/17 12:00 08/25/17 12:00 08/25/17 12:00 08/25/17 12:00 08/25/17 12:00 - Medications Medications: Current Medications Acetaminophen (Tylenol 325mg Tab) 650 mg PO Q6 PRN PRN Reason: Fever >100.4 F Acetaminophen (Tylenol 325mg Tab) 650 mg PO Q6 PRN PRN Reason: Pain, Mild (1-3) Atorvastatin Calcium (Lipitor) 10 mg PO DAILY [facility] Last Admin: 08/25/17 09:03 Dose: 10 mg Cholecalciferol (Vitamin D) 5,000 intlu PO Q48H [facility] Last Admin: 08/22/17 02:24 Dose: Not Given Diazepam (Valium) 2 mg PO DAILY [facility] Last Admin: 08/25/17 14:06 Dose: Not Given Docusate Sodium (Colace) 100 mg PO BID [facility] Last Admin: 08/25/17 09:02 Dose: 100 mg Hydromorphone HCl (Dilaudid) 0.5 mg IVP Q3 PRN PRN Reason: Pain, moderate (4-7) Last Admin: 08/25/17 01:56 Dose: 0.5 mg Ceftriaxone Sodium 1 gm/ (Sodium Chloride) 100 mls @ 100 mls/hr IVPB DAILY [facility] PRN Reason: Protocol Last Admin: 08/25/17 14:07 Dose: 100 mls/hr Lactulose (Enulose) 20 gm PO DAILY [facility] PRN Reason: Constipation Lidocaine (Lidoderm) 1 ea TD DAILY [facility] Last Admin: 08/25/17 09:03 Dose: Not Given Metoprolol Tartrate (Lopressor) 50 mg PO Q12 [facility] Last Admin: 08/25/17 09:04 Dose: 50 mg Morphine Sulfate (Morphine) 2 mg IVP Q6 PRN PRN Reason: Pain, severe (8-10) Nitrofurantoin Macrocrystals (Macrobid) 100 mg PO Q12 [facility] Ondansetron HCl (Zofran Inj) 4 mg IVP Q6 PRN PRN Reason: Nausea/Vomiting Oxycodone/Acetaminophen (Percocet 5/325 Mg Tab) 1 tab PO Q4 PRN PRN Reason: Pain, moderate (4-7) Stop: 08/28/17 10:13 Last Admin: 08/25/17 11:32 Dose: 1 tab Pantoprazole Sodium (Protonix Ec Tab) 40 mg PO DAILY [facility] Last Admin: 08/25/17 09:04 Dose: 40 mg Sevelamer HCl (Renagel) 800 mg PO TID [facility] Last Admin: 08/25/17 14:07 Dose: Not Given Sucralfate (Carafate Oral Susp) 1 gm PO QID [facility] Sulfasalazine (Azulfidine) 1,000 mg PO Q6H [facility] PRN Reason: Protocol Last Admin: 08/25/17 09:01 Dose: Not Given Trazodone HCl (Desyrel) 50 mg PO HS [facility] Last Admin: 08/24/17 22:04 Dose: 50 mg - Labs Labs: 08/25/17 05:00 08/25/17 05:00 PT 13.6 Seconds (9.8-13.1) H 08/23/17 08:00 INR 1.2 (0.9-1.2) 08/23/17 08:00 APTT 34.1 Seconds (25.6-37.1) 08/22/17 07:50 - Constitutional Appears: No Acute Distress, Chronically Ill - Head Exam Head Exam: NORMAL INSPECTION, NORMOCEPHALIC - Eye Exam Eye Exam: EOMI, Normal appearance Pupil Exam: NORMAL ACCOMMODATION - ENT Exam ENT Exam: Mucous Membranes Moist, Normal External Ear Exam - Neck Exam Neck Exam: Full ROM. absent: Meningismus - Respiratory Exam Respiratory Exam: NORMAL BREATHING PATTERN. absent: Rales, Respiratory Distress - Cardiovascular Exam Cardiovascular Exam: REGULAR RHYTHM, +S1, +S2 - GI/Abdominal Exam GI & Abdominal Exam: Soft, Normal Bowel Sounds, minimal epigastric tenderness Additional comments: + Urostomy - Extremities Exam Extremities Exam: Full ROM, Normal Capillary Refill. absent: Calf Tenderness - Back Exam Back Exam: absent: CVA tenderness (L), CVA tenderness (R), vertebral tenderness lumbar surgical wound : dressing intact - Neurological Exam Neurological Exam: Alert, Awake, CN II-XII Intact, Oriented to person Neuro motor strength exam: Left Upper Extremity: 5, Right Upper Extremity: 5, Left Lower Extremity: 5, Right Lower Extremity: 5 - Psychiatric Exam Psychiatric exam: Anxious, Normal Mood - Skin Skin Exam: Dry, Normal Color, Warm Assessment and Plan - Assessment and Plan (Free Text) Assessment: 81 yo male with history of CAD, HTN, CKD and History of Bladder Cancer brought in because of severe low back pain secondary to herniated disc on L4L5 causing significant canal stenosis and compression of the thecal sac and intrathecal nerve roots of the cauda equina. Underwent Laminectomy done by Dr Buckner on 08/23 1. Intractable Low back pain secondary to lumbar disc herniation, L4-L5 s/p Laminectomy post laminectomy L4L5 with removal of herniated disc Pain mgt PT/OT consulted - rec [facility] Plan for d/c to [facility] to night however pt started vomiting - will monitor overnight 2. HTN BP stable continue Metoprolol 50mg PO q 12hrs 3. Acute on CKD, stage III renal function improving 4. CAD asymptomatic continue statin and BB off ASA/Plavix - will discuss with Dr Buckner when these meds could be restarted 5. Epigastric Discomfort with Vomiting ? Gastritis from Steroids vs sec to Pain meds d/c Decadron cont Protonix add Sucralfate Zofran prn Abd Xray if vomiting recurs DVT proph : SCD for now
--- NOTE | 2017-08-25 16:02 | CP.PCM.PN ---
Subjective - Date & Time of Evaluation Date of Evaluation: 08/25/17 Time of Evaluation: 16:00 - Subjective Subjective: SPINE - POD #2 Pt resting in bed. Was OOB earlier with PT. Evidently not complaining of pain in legs now but was nauseous with epigastric pain. Afebrile. Moves all extremities, and neuro remains grossly intact. Rec: OK from our viewpoint for [facility] transfer tomorrow. Objective - Vital Signs/Intake and Output Vital Signs (last 24 hours): Temp Pulse Resp BP Pulse Ox 99.4 F 89 16 135/82 97 08/25/17 15:45 08/25/17 15:45 08/25/17 15:45 08/25/17 15:45 08/25/17 15:45 - Medications Medications: Current Medications Acetaminophen (Tylenol 325mg Tab) 650 mg PO Q6 PRN PRN Reason: Fever >100.4 F Acetaminophen (Tylenol 325mg Tab) 650 mg PO Q6 PRN PRN Reason: Pain, Mild (1-3) Atorvastatin Calcium (Lipitor) 10 mg PO DAILY [facility] Last Admin: 08/25/17 09:03 Dose: 10 mg Cholecalciferol (Vitamin D) 5,000 intlu PO Q48H [facility] Last Admin: 08/22/17 02:24 Dose: Not Given Diazepam (Valium) 2 mg PO DAILY [facility] Last Admin: 08/25/17 14:06 Dose: Not Given Docusate Sodium (Colace) 100 mg PO BID [facility] Last Admin: 08/25/17 09:02 Dose: 100 mg Hydromorphone HCl (Dilaudid) 0.5 mg IVP Q3 PRN PRN Reason: Pain, moderate (4-7) Last Admin: 08/25/17 01:56 Dose: 0.5 mg Ceftriaxone Sodium 1 gm/ (Sodium Chloride) 100 mls @ 100 mls/hr IVPB DAILY [facility] PRN Reason: Protocol Last Admin: 08/25/17 14:07 Dose: 100 mls/hr Lactulose (Enulose) 20 gm PO DAILY [facility] PRN Reason: Constipation Lidocaine (Lidoderm) 1 ea TD DAILY [facility] Last Admin: 08/25/17 09:03 Dose: Not Given Metoprolol Tartrate (Lopressor) 50 mg PO Q12 [facility] Last Admin: 08/25/17 09:04 Dose: 50 mg Morphine Sulfate (Morphine) 2 mg IVP Q6 PRN PRN Reason: Pain, severe (8-10) Nitrofurantoin Macrocrystals (Macrobid) 100 mg PO Q12 [facility] Ondansetron HCl (Zofran Inj) 4 mg IVP Q6 PRN PRN Reason: Nausea/Vomiting Oxycodone/Acetaminophen (Percocet 5/325 Mg Tab) 1 tab PO Q4 PRN PRN Reason: Pain, moderate (4-7) Stop: 08/28/17 10:13 Last Admin: 08/25/17 11:32 Dose: 1 tab Pantoprazole Sodium (Protonix Inj) 40 mg IVP BID [facility] Sevelamer HCl (Renagel) 800 mg PO TID [facility] Last Admin: 08/25/17 14:07 Dose: Not Given Sucralfate (Carafate Oral Susp) 1 gm PO QID [facility] Sulfasalazine (Azulfidine) 1,000 mg PO Q6H [facility] PRN Reason: Protocol Last Admin: 08/25/17 09:01 Dose: Not Given Trazodone HCl (Desyrel) 50 mg PO HS [facility] Last Admin: 08/24/17 22:04 Dose: 50 mg - Labs Labs: 08/25/17 05:00 08/25/17 05:00 PT 13.6 Seconds (9.8-13.1) H 08/23/17 08:00 INR 1.2 (0.9-1.2) 08/23/17 08:00 APTT 34.1 Seconds (25.6-37.1) 08/22/17 07:50
[2017-08-25] MEDS: Sucralfate 1 gm/10 ml Oral Susp UD PO SCH ×2 (17:07→21:28)
[2017-08-26 00:47] VITALS: RESP 18
[2017-08-26] MEDS: Cholecalciferol 1,000 INTLU TAB PO SCH (03:00)
[2017-08-26 06:20] LABS: HEMOGLOBIN 9.9 g/dL (12.0-18.0); MEAN CELL VOLUME 93.1 fl (80.0-94.0); MEAN CORPUSCULAR HEMOGLOBIN 33.1 pg (27.0-31.0); MEAN CORPUSCULAR HGB CONC 35.5 g/dL (33.0-37.0); RBC 2.98 Mil/uL (4.40-5.90); RED CELL DISTRIBUTION WIDTH 12.4 % (11.5-14.5); WHITE BLOOD COUNT 8.1 K/uL (4.8-10.8)
[2017-08-26 06:39] LABS: CALCIUM 9.3 mg/dL (8.4-10.2)
[2017-08-26] MEDS ORDERED: Enoxaparin 30 mg Syringe SC SCH (09:00)
--- NOTE | 2017-08-26 09:18 | CP.PCM.DIS ---
Provider - Provider Date of Admission: 08/21/17 17:40 Attending physician: Thom Germain Primary care physician: Dr Sienna Samano Consults: Neurosurgery : Dr Buckner Cardio: Dr Sienna Samano Time Spent in preparation of Discharge (in minutes): 25 Diagnosis - Discharge Diagnosis (1) Status post lumbar laminectomy Status: Acute (2) Herniated disc Status: Acute (3) UTI (urinary tract infection) Status: Acute Priority: High (4) History of bladder cancer Status: Chronic (5) Hx of CABG Status: Chronic Priority: High (6) Renal failure (ARF), acute on chronic Status: Acute (7) DVT prophylaxis Status: Acute Priority: High Hospital Course - Lab Results Lab Results: Micro Results 08/21/17 15:50 Urine,Fowler Urine Culture - Final Escherichia Coli Enterococcus Faecalis Most Recent Lab Values WBC 8.1 K/uL (4.8-10.8) 08/26/17 04:45 RBC 2.98 Mil/uL (4.40-5.90) L 08/26/17 04:45 Hgb 9.9 g/dL (12.0-18.0) L 08/26/17 04:45 Hct 27.7 % (35.0-51.0) L 08/26/17 04:45 MCV 93.1 fl (80.0-94.0) 08/26/17 04:45 MCH 33.1 pg (27.0-31.0) H 08/26/17 04:45 MCHC 35.5 g/dL (33.0-37.0) 08/26/17 04:45 RDW 12.4 % (11.5-14.5) 08/26/17 04:45 Plt Count 133 K/uL (130-400) 08/26/17 04:45 MPV 7.1 fl (7.2-11.7) L 08/20/17 07:12 Neut % (Auto) 57.6 % (50.0-75.0) 08/20/17 07:12 Lymph % (Auto) 25.7 % (20.0-40.0) 08/20/17 07:12 [place] % (Auto) 13.8 % (0.0-10.0) H 08/20/17 07:12 Eos % (Auto) 2.5 % (0.0-4.0) 08/20/17 07:12 Baso % (Auto) 0.4 % (0.0-2.0) 08/20/17 07:12 Neut # (Auto) 4.9 K/uL (1.8-7.0) 08/20/17 07:12 Lymph # (Auto) 2.2 K/uL (1.0-4.3) 08/20/17 07:12 [place] # (Auto) 1.2 K/uL (0.0-0.8) H 08/20/17 07:12 Eos # (Auto) 0.2 K/uL (0.0-0.7) 08/20/17 07:12 Baso # (Auto) 0.0 K/uL (0.0-0.2) 08/20/17 07:12 PT 13.6 Seconds (9.8-13.1) H 08/23/17 08:00 INR 1.2 (0.9-1.2) 08/23/17 08:00 APTT 34.1 Seconds (25.6-37.1) 08/22/17 07:50 Sodium 140 mmol/l (132-148) 08/26/17 04:45 Potassium 3.9 MMOL/L (3.6-5.0) 08/26/17 04:45 Chloride 102 mmol/L (98-107) 08/26/17 04:45 Carbon Dioxide 26 mmol/L (22-30) 08/26/17 04:45 Anion Gap 16 (10-20) 08/26/17 04:45 BUN 37 mg/dl (9-20) H 08/26/17 04:45 Creatinine 1.4 mg/dl (0.8-1.5) 08/26/17 04:45 Est GFR ( Amer) 59 08/26/17 04:45 Est GFR (Non-Af Amer) 48 08/26/17 04:45 Random Glucose 112 mg/dL (75-110) H 08/26/17 04:45 Calcium 9.3 mg/dL (8.4-10.2) 08/26/17 04:45 Total Bilirubin 0.8 mg/dl (0.2-1.3) 08/25/17 05:00 AST 21 U/L (17-59) 08/25/17 05:00 ALT 33 U/L (21-72) 08/25/17 05:00 Alkaline Phosphatase 70 U/L (38-126) 08/25/17 05:00 Total Protein 6.2 G/DL (6.3-8.2) L 08/25/17 05:00 Albumin 3.4 g/dL (3.5-5.0) L D 08/25/17 05:00 Globulin 2.9 gm/dL (2.2-3.9) 08/25/17 05:00 Albumin/Globulin Ratio 1.2 (1.0-2.1) 08/25/17 05:00 Vitamin B12 719 pg/mL (239-931) 08/20/17 07:12 Folate > 20.0 ng/mL 08/20/17 07:12 Urine Color Straw (YELLOW) 08/20/17 00:10 Urine Clarity Slighty-cloudy (Clear) 08/20/17 00:10 Urine pH 7.0 (5.0-8.0) 08/20/17 00:10 Ur Specific [place] 1.008 (1.003-1.030) 08/20/17 00:10 Urine Protein 100 mg/dL (NEGATIVE) 08/20/17 00:10 Urine Glucose (UA) Neg mg/dL (Normal) 08/20/17 00:10 Urine Ketones Negative mg/dL (NEGATIVE) 08/20/17 00:10 Urine Blood Small (NEGATIVE) 08/20/17 00:10 Urine Nitrate Negative (NEGATIVE) 08/20/17 00:10 Urine Bilirubin Negative (NEGATIVE) 08/20/17 00:10 Urine Urobilinogen 0.2-1.0 mg/dL (0.2-1.0) 08/20/17 00:10 Ur Leukocyte Esterase Large Emily/uL (Negative) 08/20/17 00:10 Urine RBC (Auto) 4 /hpf (0-3) H 08/20/17 00:10 Urine Microscopic WBC 18 /hpf (0-5) H 08/20/17 00:10 Ur Squamous Epith Cells < 1 /hpf (0-5) 08/20/17 00:10 Urine Bacteria Mod (<OCC) H 08/20/17 00:10 Blood Type B POSITIVE 08/23/17 08:00 Antibody Screen Negative 08/23/17 08:00 BBK History Checked Patient has bt 08/23/17 08:00 - Hospital Course Hospital Course: 81 yo male with history of CAD, HTN, CKD and History of Bladder Cancer brought in because of severe low back pain secondary to herniated disc on L4L5 causing significant canal stenosis and compression of the thecal sac and intrathecal nerve roots of the cauda equina. Underwent Laminectomy done by Dr Buckner on 08/23 1. Intractable Low back pain secondary to lumbar disc herniation, L4-L5 s/p Laminectomy post laminectomy L4L5 with removal of herniated disc Pain mgt PT/OT consulted - rec RBUA Plan for d/c to [facility] to night however pt started vomiting - will monitor overnight 2. UTI - E coli and E Faecalis - pt has no fever, no leukocytosis - received IV Ceftriaxone while in the hospital x 1 wk - sensitive to Nitrofurantoin - cont for 1 more week 3. Hx of Bladder CA s/p resection -pt urinates thru Urostomy 4. HTN BP stable continue Metoprolol 50mg PO q 12hrs 5 . Acute on CKD, stage III renal function improving 6. CAD asymptomatic continue statin and BB restart ASA - discussed with Dr Buckner , ok to restart ASA today 7. Epigastric Discomfort with Vomiting ? Gastritis from Steroids vs sec to Opiates meds d/c Decadron cont Protonix added Sucralfate DVT proph : Lovenox renal dose - of to start Lovenox as per Dr Buckner Discharge Exam - Head Exam Head Exam: ATRAUMATIC, NORMAL INSPECTION, NORMOCEPHALIC - Eye Exam Eye Exam: EOMI, Normal appearance Pupil Exam: NORMAL ACCOMODATION - ENT Exam ENT Exam: Mucous Membranes Moist, Normal External Ear Exam - Neck Exam Neck exam: Full Rom - Respiratory Exam Respiratory Exam: NORMAL BREATHING PATTERN. absent: Respiratory Distress - Cardiovascular Exam Cardiovascular Exam: REGULAR RHYTHM, +S1, +S2 - GI/Abdominal Exam GI & Abdominal Exam: Normal Bowel Sounds, Soft. absent: Tenderness Additional comments: + Urostomy , bag with urine - Extremities Exam Extremities exam: normal capillary refill, pedal pulses present - Back Exam Back exam: absent: CVA tenderness (L), CVA tenderness (R) - Neurological Exam Neurological exam: Alert, CN II-XII Intact, Oriented x3, Reflexes Normal - Psychiatric Exam Psychiatric exam: Normal Affect, Normal Mood - Skin Skin Exam: Dry, Normal Color, Warm Discharge Plan - Discharge Medications Prescriptions: Enoxaparin [Lovenox] 30 mg SQ DAILY #1 syr - Follow Up Plan Condition: FAIR Disposition: TRANSF TO SNF Instructions: Laminectomy (DC) Additional Instructions: ff up with Dr Buckner in 1 wk ff up with Dr Samano in 2 wks Referrals: Ernesto Buckner MD [Staff Provider] -
--- NOTE | 2017-08-26 10:07 | CP.PCM.PN ---
Subjective - Date & Time of Evaluation Date of Evaluation: 08/26/17 Time of Evaluation: 09:50 - Subjective Subjective: Fairly free of surgical pain Had nausea following Delaudid Afebrile No signs of CHF Urine C/S results discussed with Dr. Zuluaga (pt on antibiotics) Dr. Buckner has okayed proceeding to rehab Scheduled to go to rehab today. Objective - Vital Signs/Intake and Output Vital Signs (last 24 hours): Temp Pulse Resp BP Pulse Ox 97.7 F 88 18 146/71 98 08/26/17 08:35 08/26/17 08:35 08/26/17 08:35 08/26/17 08:35 08/26/17 08:35 Intake and Output: 08/26/17 08/26/17 06:59 18:59 Intake Total 500 Output Total 700 Balance -200 - Medications Medications: Current Medications Acetaminophen (Tylenol 325mg Tab) 650 mg PO Q6 PRN PRN Reason: Fever >100.4 F Acetaminophen (Tylenol 325mg Tab) 650 mg PO Q6 PRN PRN Reason: Pain, Mild (1-3) Aspirin (Ecotrin) 81 mg PO DAILY [facility] Atorvastatin Calcium (Lipitor) 10 mg PO DAILY [facility] Last Admin: 08/25/17 09:03 Dose: 10 mg Cholecalciferol (Vitamin D) 5,000 intlu PO Q48H [facility] Last Admin: 08/26/17 03:00 Dose: Not Given Diazepam (Valium) 2 mg PO DAILY [facility] Last Admin: 08/25/17 14:06 Dose: Not Given Docusate Sodium (Colace) 100 mg PO BID [facility] Last Admin: 08/25/17 17:08 Dose: 100 mg Enoxaparin Sodium (Lovenox) 30 mg SC DAILY [facility] PRN Reason: Protocol Hydromorphone HCl (Dilaudid) 0.5 mg IVP Q3 PRN PRN Reason: Pain, moderate (4-7) Last Admin: 08/25/17 01:56 Dose: 0.5 mg Ceftriaxone Sodium 1 gm/ (Sodium Chloride) 100 mls @ 100 mls/hr IVPB DAILY [facility] PRN Reason: Protocol Last Admin: 08/25/17 14:07 Dose: 100 mls/hr Lactulose (Enulose) 20 gm PO DAILY PRN PRN Reason: Constipation Lidocaine (Lidoderm) 1 ea TD DAILY [facility] Last Admin: 08/25/17 09:03 Dose: Not Given Metoprolol Tartrate (Lopressor) 50 mg PO Q12 [facility] Last Admin: 08/25/17 21:29 Dose: 50 mg Morphine Sulfate (Morphine) 2 mg IVP Q6 PRN PRN Reason: Pain, severe (8-10) Nitrofurantoin Macrocrystals (Macrobid) 100 mg PO Q12 [facility] Last Admin: 08/25/17 21:30 Dose: 100 mg Ondansetron HCl (Zofran Inj) 4 mg IVP Q6 PRN PRN Reason: Nausea/Vomiting Oxycodone/Acetaminophen (Percocet 5/325 Mg Tab) 1 tab PO Q4 PRN PRN Reason: Pain, moderate (4-7) Stop: 08/28/17 10:13 Last Admin: 08/25/17 21:31 Dose: 1 tab Pantoprazole Sodium (Protonix Inj) 40 mg IVP BID [facility] Last Admin: 08/25/17 17:08 Dose: 40 mg Sevelamer HCl (Renagel) 800 mg PO TID [facility] Last Admin: 08/25/17 17:09 Dose: Not Given Sucralfate (Carafate Oral Susp) 1 gm PO QID [facility] Last Admin: 08/25/17 21:28 Dose: 1 gm Sulfasalazine (Azulfidine) 1,000 mg PO Q6H [facility] PRN Reason: Protocol Last Admin: 08/26/17 04:00 Dose: Not Given Trazodone HCl (Desyrel) 50 mg PO HS [facility] Last Admin: 08/25/17 21:28 Dose: 50 mg - Labs Labs: 08/26/17 04:45 08/26/17 04:45 PT 13.6 Seconds (9.8-13.1) H 08/23/17 08:00 INR 1.2 (0.9-1.2) 08/23/17 08:00 APTT 34.1 Seconds (25.6-37.1) 08/22/17 07:50
[2017-08-26] MEDS: Sucralfate 1 gm/10 ml Oral Susp UD PO SCH (10:43)
[2017-08-26] MEDS: Lidocaine 5% Patch TD SCH (10:49)
[2017-08-26] MEDS: Oxycodone/Acetaminophen 5/325 mg Tab PO PRN (12:25)
[2017-08-26 12:43] VITALS: BP 145/71; PULSE 94; TEMP 98.5; O2SAT 95
== END 2017-08-26 13:47 | DRG 519 ==
LOC: H.ER 23:01 → H.ERHOLD 08-20 01:32 → H.MEDSURG1 08-20 03:08 → OBSVTOIN 08-21 17:40 → H.TEL 08-23 12:44
PROVIDERS: ADMIT Internal Medicine; ATTEND Internal Medicine
PROC: B03BZZZ Magnetic Resonance Imaging (MRI) of Spinal Cord (ICD-10-PCS; 2017-08-22)
PROC: 0SB20ZZ Excision of Lumbar Vertebral Disc, Open Approach (ICD-10-PCS; principal; 2017-08-23 07:45)
DX: M51.26 Other intervertebral disc displacement, lumbar region (principal); N17.9 Acute kidney failure, unspecified; E87.5 Hyperkalemia; I13.0 Hypertensive heart and chronic kidney disease with heart failure and stage 1 through stage 4 chronic kidney disease, or unspecified chronic kidney disease; I50.22 Chronic systolic (congestive) heart failure; N39.0 Urinary tract infection, site not specified; D51.9 Vitamin B12 deficiency anemia, unspecified; F05 Delirium due to known physiological condition; M48.061 Spinal stenosis, lumbar region without neurogenic claudication; N18.3 Chronic kidney disease, stage 3 (moderate); I48.0 Paroxysmal atrial fibrillation; B96.20 Unspecified Escherichia coli [E. coli] as the cause of diseases classified elsewhere; J44.9 Chronic obstructive pulmonary disease, unspecified; I25.10 Atherosclerotic heart disease of native coronary artery without angina pectoris; D63.1 Anemia in chronic kidney disease; B95.2 Enterococcus as the cause of diseases classified elsewhere; K51.90 Ulcerative colitis, unspecified, without complications; K29.60 Other gastritis without bleeding; Z93.6 Other artificial openings of urinary tract status; Z85.51 Personal history of malignant neoplasm of bladder; Z85.118 Personal history of other malignant neoplasm of bronchus and lung; F32.9 Major depressive disorder, single episode, unspecified; M19.90 Unspecified osteoarthritis, unspecified site; Z95.1 Presence of aortocoronary bypass graft; Z95.5 Presence of coronary angioplasty implant and graft; Z87.891 Personal history of nicotine dependence; Z79.82 Long term (current) use of aspirin; Z79.02 Long term (current) use of antithrombotics/antiplatelets; Z88.1 Allergy status to other antibiotic agents

== ENCOUNTER 2018-07-03 13:32 | Emergency (ER) | payer MEDICARE, OTHER ==
[2018-07-03 14:04] VITALS: RESP 18; TEMP 97.9; O2SAT 97
[2018-07-03] MEDS ORDERED: Albuterol-Ipratrop 3 mg / 0.5 (3 ml) UD INH STA ×3 (14:58→17:00)
[2018-07-03 15:54] LABS: BASO % 0.5 % (0.0-2.0); EOS # 0.2 K/uL (0.0-0.7); EOS % 1.9 % (0.0-4.0); HEMOGLOBIN 12.6 g/dL (12.0-18.0); LYMPH % 23.8 % (20.0-40.0); MEAN CORPUSCULAR HEMOGLOBIN 32.4 pg (27.0-31.0); MEAN CORPUSCULAR HGB CONC 34.8 g/dL (33.0-37.0); MEAN PLATELET VOLUME 6.9 fl (7.2-11.7); MONO # 0.9 K/uL (0.0-0.8); MONO % 11.5 % (0.0-10.0); NEUT # 5.1 K/uL (1.8-7.0); NEUT % 62.3 % (50.0-75.0); NRBC % 0.1 % (0.0-0.0); RBC 3.88 Mil/uL (4.40-5.90); RED CELL DISTRIBUTION WIDTH 12.7 % (11.5-14.5); WHITE BLOOD COUNT 8.2 K/uL (4.8-10.8)
[2018-07-03 15:56] LABS: SQUAMOUS EPITHIAL < 1 /hpf (0-5); URINE BACTERIA OCC (<OCC); URINE BILIRUBIN NEGATIVE (NEGATIVE); URINE BLOOD SMALL (NEGATIVE); URINE CLARITY SLIGHTY-CLOUDY (Clear); URINE COLOR YELLOW (YELLOW); URINE GLUCOSE (UA) NEG (NEGATIVE); URINE LEUKOCYTE ESTERASE LARGE Leu/uL (Negative); URINE PROTEIN 30 mg/dL (NEGATIVE); URINE UROBILINOGEN 0.2-1.0 mg/dL (0.2-1.0); WBC CLUMPS RARE /hpf
[2018-07-03 16:00] LABS: PROTHROMBIN TIME 11.2 Seconds (9.8-13.1)
[2018-07-03 16:01] LABS: VENOUS BLOOD GAS BASE EXCESS 3.2 mmol/L (0.0-2.0); VENOUS BLOOD GAS PCO2 45 mmHg (40-60); VENOUS BLOOD GAS PO2 53 mm/Hg (30-55); VENOUS BLOOD PH 7.41 (7.32-7.43)
[2018-07-03 16:03] LABS: BLOOD UREA NITROGEN 50 mg/dl (9-20); CALCIUM 9.9 mg/dL (8.4-10.2); GFR NON-AFRICAN AMERICAN 53; PARTIAL THROMBOPLASTIN TIME 43.6 Seconds (25.6-37.1)
[2018-07-03 16:11] LABS: B-TYPE NATRIURETIC PEPTIDE 543 pg/ml (0-900)
--- NOTE | 2018-07-03 16:46 | ED PDOC ---
HPI: Abdomen Time Seen by Provider: 07/03/18 14:40 Chief Complaint (Nursing): Abdominal Pain Chief Complaint (Provider): Abdominal Pain History Per: Patient History/Exam Limitations: no limitations Onset/Duration Of Symptoms: Hrs Current Symptoms Are (Timing): Still Present Additional Complaint(s): Patient is an 82 y/o male with a PMHx of HTN, anemia, asthma, arthritis, atrial fibrillation, CAD, depression, and chronic kidney disease who presents to the ED for evaluation of cough, fever, chills, and SOB, onset today. Patient denies CP, abdominal pain, and any other symptoms. Of note, patient has an extensive history of cardiac surgeries. PCP: Dr. Deejay Samano Past Medical History Vital Signs: Last Vital Signs Temp 97.9 F 07/03/18 14:03 Pulse 82 07/03/18 14:03 Resp 18 07/03/18 14:03 BP 181/89 H 07/03/18 14:03 Pulse Ox 97 07/03/18 14:03 - Medical History PMH: Anemia, Arthritis, Asthma, Atrial Fibrillation (paroxysmal), CAD, Depression, HTN, Chronic Kidney Disease Denies: CHF, COPD, HIV, Hypercholesterolemia, Hypothyroidism, Rheumatoid Arthritis - Surgical History Surgical History: CABG (Triple) - Family History Family History: States: Unknown Family Hx - Home Medications Home Medications: Ambulatory Orders Medication Instructions Recorded Acetaminophen [Tylenol 325mg tab] 650 mg PO Q6 PRN tab 11/14/16 Acetaminophen [Tylenol 325mg tab] 650 mg PO Q6 PRN tab 11/14/16 Aspirin [Ecotrin] 81 mg PO DAILY #30 11/14/16 Cholecalciferol (Vitamin D3) 5,000 unit PO Q48H #30 11/14/16 [Vitamin D3] Dicyclomine [Bentyl] 20 mg PO TID PRN #90 11/14/16 Folic Acid 1 mg PO DAILY #30 11/14/16 Lisinopril/Hydrochlorothiazide 1 tab PO DAILY #30 11/14/16 [Lisinopril-Hctz 10-12.5 mg Tab] Metoprolol Tartrate [Lopressor] 25 mg PO Q12 #60 11/14/16 Simvastatin [Zocor] 20 mg PO DAILY #30 11/14/16 SulfaSALAzine [Azulfidine] 1,000 mg PO Q6H #120 11/14/16 Temazepam [Restoril] 30 mg PO HS #30 11/14/16 Sevelamer [Renagel] 800 mg PO TID tab 12/02/16 traZODone [Desyrel] 50 mg PO HS tab 12/02/16 Cyclobenzaprine [Flexeril] 10 mg PO TID 08/19/17 Tramadol HCl/Acetaminophen 1 tab PO TID PRN 08/19/17 [Tramadol-Acetaminophn 37.5-325] Docusate [Colace] 100 mg PO BID cap 08/25/17 Lactulose [Enulose] 20 gm PO DAILY PRN udc 08/25/17 Lidocaine 5% [Lidoderm] 1 ea TD DAILY patch 08/25/17 Pantoprazole [Protonix EC Tab] 40 mg PO DAILY ect 08/25/17 diaZEpam [Valium] 2 mg PO DAILY 2 Days #2 tab 08/25/17 oxyCODONE/Acetaminophen [Percocet 1 tab PO Q4 PRN tab 08/25/17 5/325 mg Tab] Enoxaparin [Lovenox] 30 mg SQ DAILY #1 syr 08/26/17 Nitrofurantoin Macrocrystals 100 mg PO Q12 cap 08/26/17 [Macrobid] - Allergies Allergies/Adverse Reactions: Allergies Allergy/AdvReac Type Severity Reaction Status Date / Time ciprofloxacin [From Cipro] Allergy ITCHING Verified 11/12/16 12:46 Review of Systems ROS Statement: Except As Marked, All Systems Reviewed And Found Negative Constitutional: Positive for: Fever, Chills Cardiovascular: Negative for: Chest Pain Gastrointestinal: Negative for: Abdominal Pain Physical Exam - Reviewed Nursing Documentation Reviewed: Yes Vital Signs Reviewed: Yes - Physical Exam Appears: Positive for: Well (Making Jokes), No Acute Distress Head Exam: Positive for: ATRAUMATIC, NORMAL INSPECTION, NORMOCEPHALIC Skin: Positive for: Normal Color Eye Exam: Positive for: Normal appearance Neck: Positive for: Normal Cardiovascular/Chest: Positive for: Regular Rate, Rhythm Respiratory: Positive for: Crackles (Bilateral), Wheezing (Bilateral) Gastrointestinal/Abdominal: Positive for: Soft. Negative for: Tenderness Extremity: Positive for: Normal ROM (Upper/Lower) Neurologic/Psych: Positive for: Alert, Oriented - Laboratory Results Result Diagrams: 07/03/18 15:30 07/03/18 15:30 Lab Results: pO2 53 mm/Hg (30-55) 07/03/18 15:57 VBG pH 7.41 (7.32-7.43) 07/03/18 15:57 VBG pCO2 45 mmHg (40-60) 07/03/18 15:57 VBG HCO3 27.2 mmol/L 07/03/18 15:57 VBG Total CO2 29.9 mmol/L (22-28) H 07/03/18 15:57 VBG O2 Sat (Calc) 91.5 % (40-65) H 07/03/18 15:57 VBG Base Excess 3.2 mmol/L (0.0-2.0) H 07/03/18 15:57 VBG Potassium 4.9 mmol/L (3.6-5.2) 07/03/18 15:57 Sodium 131.0 mmol/L (132-148) L 07/03/18 15:57 Chloride 101.0 mmol/L (98-107) 07/03/18 15:57 Glucose 101 mg/dL (75-110) 07/03/18 15:57 Lactate 1.2 mmol/L (0.7-2.1) 07/03/18 15:57 FiO2 21.0 % 07/03/18 15:57 PT 11.2 Seconds (9.8-13.1) 07/03/18 15:30 INR 1.0 07/03/18 15:30 APTT 43.6 Seconds (25.6-37.1) H 07/03/18 15:30 NT-Pro-B Natriuret Pep 543 pg/ml (0-900) 07/03/18 15:30 Urine Color Yellow (YELLOW) 07/03/18 15:30 Urine Clarity Slighty-cloudy (Clear) 07/03/18 15:30 Urine pH 7.0 (5.0-8.0) 07/03/18 15:30 Ur Specific [place] 1.006 (1.003-1.030) 07/03/18 15:30 Urine Protein 30 mg/dL (NEGATIVE) 07/03/18 15:30 Urine Glucose (UA) Neg mg/dL (NEGATIVE) 07/03/18 15:30 Urine Ketones Negative mg/dL (NEGATIVE) 07/03/18 15:30 Urine Blood Small (NEGATIVE) 07/03/18 15:30 Urine Nitrate Negative (NEGATIVE) 07/03/18 15:30 Urine Bilirubin Negative (NEGATIVE) 07/03/18 15:30 Urine Urobilinogen 0.2-1.0 mg/dL (0.2-1.0) 07/03/18 15:30 Ur Leukocyte Esterase Large [place]/uL (Negative) 07/03/18 15:30 Urine RBC (Auto) 4 /hpf (0-3) H 07/03/18 15:30 Urine WBC Clumps (Auto) Rare /hpf (NONE) H 07/03/18 15:30 Urine Microscopic WBC 51 /hpf (0-5) H 07/03/18 15:30 Ur Squamous Epith Cells < 1 /hpf (0-5) 07/03/18 15:30 Urine Bacteria Occ (<OCC) H 07/03/18 15:30 - ECG O2 Sat by Pulse Oximetry: 97 (RA) Pulse Ox Interpretation: Normal Medical Decision Making Medical Decision Making: Time: 1459 Impression: Asthma vs PNA vs Other Cause Plan: Venous Blood Gas Shock Panel EKG BNP BMP CBC PTT Prothrombin Time Albuterol/Ipratropium 3 ml INT (x2) Peak Flow Pre/Post TX .Pre/Post Treatment Influenza A B UA 1830 Pt's breathing now improved. Pt now expressing more concern for abdominal pain stating he has pain around his urostomy site and thinks he saw blood in his urine. UA shows high leukocyte esterase. Pt started on cefepime. Abdomen tender and will get CT abd/pelvis. Cultures were sent. Pt to be signed out to Dr. Garcia pending CT results. Scribe Attestation: Documented by Carlos Cotton, acting as a scribe for Karyn Herron MD. Provider Scribe Attestation: All medical record entries made by the Scribe were at my direction and personally dictated by me. I have reviewed the chart and agree that the record accurately reflects my personal performance of the history, physical exam, medical decision making, and the department course for this patient. I have also personally directed, reviewed, and agree with the discharge instructions and disposition. Disposition - Disposition Disposition: Transfer of Care Disposition Time: 18:59 Forms: [employer] (Greenlandic)
[2018-07-03] MEDS ORDERED: Albuterol-Ipratrop 3 mg / 0.5 (3 ml) UD ONE ×3 (16:50→19:12)
[2018-07-03] MEDS ORDERED: Iohexol 240 (50 ml) PO ONE (18:06)
[2018-07-03] MEDS ORDERED: Iohexol 240 (50 ml) ONE (18:28)
--- NOTE | 2018-07-03 18:33 | RAD ---
Date of service: 07/03/2018 HISTORY: SOB COMPARISON: 11/30/2016. TECHNIQUE: Chest PA and lateral FINDINGS: LUNGS: No active pulmonary disease. PLEURA: No significant pleural effusion identified. No pneumothorax apparent. CARDIOVASCULAR: Aortic atherosclerotic calcification present. No radiographic findings to suggest acute or significant cardiovascular disease. Incidental Finding(s): Postoperative changes related to sternotomy. Normal cardiac size. No pulmonary vascular congestion. OSSEOUS STRUCTURES: No significant abnormalities. VISUALIZED UPPER ABDOMEN: Normal. OTHER FINDINGS: None. IMPRESSION: No active disease. No significant interval change compared to the prior examination(s).
[2018-07-03] MEDS ORDERED: Cefepime 2 GM in Sodium Chloride 0.9% 100 ML IVPB STA (18:55)
[2018-07-03] MEDS ORDERED: Sodium Chloride 0.9% 50 ML IV ONE (20:36)
[2018-07-03] MEDS ORDERED: Iodixanol 320 MG/ML 100 ML BOTTLE IV ONE (20:36)
--- NOTE | 2018-07-03 22:04 | ED PDOC ---
- Laboratory Results Result Diagrams: 07/03/18 15:30 07/03/18 15:30 Lab Results: pO2 53 mm/Hg (30-55) 07/03/18 15:57 VBG pH 7.41 (7.32-7.43) 07/03/18 15:57 VBG pCO2 45 mmHg (40-60) 07/03/18 15:57 VBG HCO3 27.2 mmol/L 07/03/18 15:57 VBG Total CO2 29.9 mmol/L (22-28) H 07/03/18 15:57 VBG O2 Sat (Calc) 91.5 % (40-65) H 07/03/18 15:57 VBG Base Excess 3.2 mmol/L (0.0-2.0) H 07/03/18 15:57 VBG Potassium 4.9 mmol/L (3.6-5.2) 07/03/18 15:57 Sodium 131.0 mmol/L (132-148) L 07/03/18 15:57 Chloride 101.0 mmol/L (98-107) 07/03/18 15:57 Glucose 101 mg/dL (75-110) 07/03/18 15:57 Lactate 1.2 mmol/L (0.7-2.1) 07/03/18 15:57 FiO2 21.0 % 07/03/18 15:57 PT 11.2 Seconds (9.8-13.1) 07/03/18 15:30 INR 1.0 07/03/18 15:30 APTT 43.6 Seconds (25.6-37.1) H 07/03/18 15:30 Troponin I 0.0210 ng/mL (0.00-0.120) 07/03/18 19:24 NT-Pro-B Natriuret Pep 543 pg/ml (0-900) 07/03/18 15:30 Urine Color Yellow (YELLOW) 07/03/18 15:30 Urine Clarity Slighty-cloudy (Clear) 07/03/18 15:30 Urine pH 7.0 (5.0-8.0) 07/03/18 15:30 Ur Specific [place] 1.006 (1.003-1.030) 07/03/18 15:30 Urine Protein 30 mg/dL (NEGATIVE) 01/07/19 15:30 Urine Glucose (UA) Neg mg/dL (NEGATIVE) 07/03/18 15:30 Urine Ketones Negative mg/dL (NEGATIVE) 07/03/18 15:30 Urine Blood Small (NEGATIVE) 07/03/18 15:30 Urine Nitrate Negative (NEGATIVE) 07/03/18 15:30 Urine Bilirubin Negative (NEGATIVE) 07/03/18 15:30 Urine Urobilinogen 0.2-1.0 mg/dL (0.2-1.0) 07/03/18 15:30 Ur Leukocyte Esterase Large Emily/uL (Negative) 07/03/18 15:30 Urine RBC (Auto) 4 /hpf (0-3) H 07/03/18 15:30 Urine WBC Clumps (Auto) Rare /hpf (NONE) H 07/03/18 15:30 Urine Microscopic WBC 51 /hpf (0-5) H 07/03/18 15:30 Ur Squamous Epith Cells < 1 /hpf (0-5) 07/03/18 15:30 Urine Bacteria Occ (<OCC) H 07/03/18 15:30 - ECG O2 Sat by Pulse Oximetry: 97 Pulse Ox Interpretation: Normal Medical Decision Making Medical Decision MakinPM Patient endorsed to me by Dr. Herron pending CT 10PM CLINICAL HISTORY: Abdominal pain. TECHNIQUE: Multiple axial, coronal, sagittal CT images were obtained through the abdomen and pelvis after administration of oral and intravenous contrast material. [id number] 90ML. DLP 598.16. COMMENTS: The liver is of uniform attenuation without mass or defect. There is no intra o r extrahepatic biliary ductal dilatation. The spleen is normal. The gallbladder is within normal limits. The pancreas is of normal contour and attenuation characteristics. There is no evidence of adrenal mass. Both kidneys demonstrate prompt and equal nephrograms. The kidneys are normal in size, shape and configuration. There is no evidence of renal or ureteral mass. No renal or ureteral calculi are identified. There is no hydroureter or hydronephrosis. Multiple bilateral renal cortical cysts are present measuring up to 2 cm. No evidence for appendicitis. There is no bowel wall thickening. No evidence for small or large bowel obstruction. There is diffuse diverticulosis involving descending and sigmoid colon with no evidence of acute diverticulitis. Colostomy is noted in the right lower quadrant. Post surgical changes are present in the right lower quadrant. There is a broad based ventral abdominal hernia containing non-obstructed bowel. There is no evidence of abdominal ascites or lymphadenopathy. There is a small fat containing left inguinal hernia. Status post radical prostatectomy and bilateral pelvic sidewall dissection. There is no evidence of intrinsic or extrinsic bladder mass. There is no pelvic ascites or lymphadenopathy. Images of the lung bases show no evidence of pleural or parenchymal mass. There are no pleural effusions. There are 2 nodules noted in the superior segment of right lower lobe each measuring approximately 3 mm. Minimal emphysematous bleb is present in the right lower lobe. The bony structures are free of lytic or blastic lesions. IMPRESSION: 1. Multiple bilateral renal cortical cysts. 2. Diffuse diverticulosis involving descending and sigmoid colon with no evidence of acute diverticulitis. 3. 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 4. Broad based ventral abdominal hernia containing non-obstructed bowel. 5. Small fat containing left inguinal hernia. 6. Status post radical prostatectomy and bilateral pelvic sidewall dissection. 7. 2 nodules noted in the superior segment of right lower lobe. Electronically signed on Jul 03, 2018 9:27:48 PM EST by: Wilton Almazan M.D., [employer] Certified By [employer] [facility] Fellowship Trained MRI and CT Specialist Patient states he's feeling well, explained results to patient. Advised patient he will need diet modification, ABx and close followup Patient states she has an appointment with Dr. Samano on 07/19, advised patient to call tomorrow for followup with week Well appearing, stable vitals, tolerating PO upon discharge Disposition - Clinical Impression Clinical Impression: Diverticulosis, UTI (urinary tract infection) - POA Present On Arrival: None - Disposition Referrals: Deejay Samano MD [Family Provider] - Disposition: Routine/Home Disposition Time: 22:04 Condition: IMPROVED Prescriptions: Cefpodoxime [Vantin] 200 mg PO BID #14 tab Instructions: Urinary Tract Infections in Adults, Diverticulosis (DC) Forms: [employer] ([place]ian) Print Language: SPANISH
[2018-07-03 22:28] VITALS: BP 189/96; PULSE 79
--- NOTE | 2018-07-04 13:28 | CT ---
Date of service: 07/03/2018 PROCEDURE: CT Abdomen and Pelvis with contrast HISTORY: abdominal pain COMPARISON: None available. TECHNIQUE: Following oral and intravenous contrast administration, a CT examination of the abdomen and pelvis performed from the domes of the diaphragms to the symphysis pubis with reformatted datasets provided not only axial but also sagittal and coronal series. Coronal and sagittal reformats were generated. contrast dose: Visipaque 320, 90 cc Radiation dose: Total exam DLP = 598.16 mGy-cm. This CT exam was performed using one or more of the following dose reduction techniques: Automated exposure control, adjustment of the mA and/or kV according to patient size, and/or use of iterative reconstruction technique. FINDINGS: LOWER THORAX: A 4.0 mm noncalcified nodule right lower lobe right lower lobe image 1 series 3. 3.5 mm noncalcified nodule right lower lobe image 7. Mild cardiomegaly again evident. LIVER: Hepatic steatosis. No biliary tree dilatation or hepatic mass evident. GALLBLADDER AND BILE DUCTS: Unremarkable. PANCREAS: Unremarkable. No gross lesion or ductal dilatation. SPLEEN: Unremarkable. ADRENALS: Unremarkable. No mass. KIDNEYS AND URETERS: Numerous small lucencies scattered throughout the cortices of both kidneys the majority of which likely reflects cyst but most are too small to characterize. All appear below 1 cm size at the right kidney. A cyst is exophytic off the upper pole left kidney measuring 2.2 cm greatest dimension. No obstructive uropathy bilaterally. VASCULATURE: No aneurysmal dilatation throughout the abdominal aorta though calcified atherosclerotic changes are identified related. 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 BOWEL: The bowel does not appear obstructed. There is right lower quadrant ostomy with associated small mesenteric hernia. Retained fecal material scattered throughout the large bowel. Moderate laxity at the inferior abdominal and pelvic wall simulates a hernia ventrally although no disruption of the wall is specifically identified. Gross sigmoid diverticulosis identified with moderate diverticular changes affecting the mid distal descending colon without diverticulitis. Surgical clips are seen related to the mid and distal rectum. APPENDIX: Normal appendix. PERITONEUM: Unremarkable. No free fluid. No free air. LYMPH NODES: Unremarkable. No enlarged lymph nodes. BLADDER: Prior cystectomy apparent. REPRODUCTIVE: Prior prostatectomy. BONES: No acute fracture. OTHER FINDINGS: None. IMPRESSION: 1. Right lower quadrant ostomy. No bowel obstruction. Small associated right lateral ventral abdominal hernia containing only mesenteric fat. Lax anterior abdominal wall is noted inferiorly at the midline simulating and hernia although no rent in the anterior abdominal wall is appreciated nevertheless. 2. Gross left colonic diverticulosis without diverticulitis. 3. Prior cystectomy. 4. Numerous tiny cortical lucencies at the bilateral kidneys are too small to characterize but likely reflects cysts. Simple cyst exophytic off the upper pole left kidney measuring 2.2 cm greatest dimension. 5. Hepatic steatosis. 6. Two nodule right lower lobe for which follow-up CT is advised in 12 months demonstrate stability. Concordant preliminary report from [facility], 07/03/2018 9:27 p.m..
--- NOTE | 2018-07-04 20:25 | CARD ---
APPROVED REPORT Date of service: 07/03/2018 EKG Measurement Heart [id number] <Conclusion> Sinus rhythm with 1st degree AV block Incomplete right bundle branch block Borderline ECG
== END 2018-07-03 22:36 | disposition home or self-care (01) ==
LOC: H.ER 13:32
DX: K57.30 Diverticulosis of large intestine without perforation or abscess without bleeding (principal); N39.0 Urinary tract infection, site not specified; Z90.6 Acquired absence of other parts of urinary tract; J45.909 Unspecified asthma, uncomplicated; N18.9 Chronic kidney disease, unspecified; Z90.79 Acquired absence of other genital organ(s); Z95.1 Presence of aortocoronary bypass graft; Z93.3 Colostomy status
CPT/HCPCS: 71046; 74177; 80048; 81003; 82803; 83880; 84484; 85025; 85610; 85730; 87040; 87804; 93005; 96365; 96375; 99285; J0692; J2930; Q9966; Q9967